=== PATIENT | male | born 1950 | race Caucasian/White ===

== ENCOUNTER 2022-04-22 09:16 | Emergency (ER) | payer OTHER ==
--- OUTSIDE RECORDS SUMMARY | 2022-04-22 09:24 | XMS REPORT | Continuity of Care Document ---
:1950 Author Organization [facility] t Address [address] [place] [address] Care Team Providers Name Role Phone Lauryn Arora Primary Care Physician Chelsie De Jesus Attending Clinician Unavailable BENNY DING Attending Clinician Unavailable BENNY DING Attending Clinician Unavailable Benny Ding DO Attending Clinician Jeaneth Hazel Attending Clinician Team, [facility] Attending Clinician UnavailMARSHA Miranda Attending Clinician Unavailable Doctor Unassigned, [place] Attending Clinician Unavailable Jeannie Wood Attending Clinician [phone] Rehab, [facility] Cardiac Attending Clinician Unavailable Marsha Reis MD Attending Clinician Lauryn Arora Attending Clinician Jaja Harman Attending Clinician Pob, [facility] Lab Main Attending Clinician Unavailable Ozzie Munoz MD Attending Clinician OZZIE MUNOZ Attending Clinician Unavailable 2, [facility] Attending Clinician Unavailable Jessika ROBLES, Mac Marie Attending Clinician MAC ELDRIDGE Attending Clinician Unavailable LINO ARAUJO Attending Clinician Unavailable Van ROBLES, Lino Attending Clinician Fabio KIRK, Greg Bernabe Attending Clinician Unavailable NOVA LUCERO Attending Clinician Unavailable Tomas ROBLES, Juan Antonio Attending Clinician Price ROBLES, Nova Attending Clinician Natalio KIRK, Daniela Currie Attending Clinician Unavailable Virginia ROBLES, Roverto Castellano Attending Clinician Beltran ROBLES, Blane Attending Clinician LEEROY, SENDIL K.H. Attending Clinician Unavailable JAJA REAL Attending Clinician Unavailable Ruddy KIRK, Natasha Fields Attending Clinician Unavailable Chinyere ROBLES, Essence Delgado Attending Clinician Dunia White MD Attending Clinician Cindi ROBLES, [place] Attending Clinician Chalo Abdalla MD Attending Clinician Mik Mcnulty Attending Clinician Therapist, [facility] Respiratory Attending Clinician Unavailable Freddie Hargrove MD Attending Clinician FREDDIE HARGROVE Attending Clinician Unavailable LAURYN GOLDSMITH Attending Clinician Unavailable Leeroy ROBLES, Sendil K.H. Attending Clinician ESSENCE WHITLOCK Attending Clinician Unavailable Malvin Borrego MD Attending Clinician CODEY ALVAREZ Attending Clinician Unavailable CODEY ALVAREZ Attending Clinician Unavailable Radha Lacey Attending Clinician Lab, Ang - Db Attending Clinician Unavailable RADHA GRAHAM Attending Clinician Unavailable LORAINE WATTERS Attending Clinician Unavailable EbLoraine Velazquez Attending Clinician Gwendolyn Nunez MD Attending Clinician ARIELLA ROME Attending Clinician Unavailable SHAZIA YAÑEZ Attending Clinician Unavailable Shazia Yañez MD Attending Clinician ASHWIN WHATLEY Attending Clinician Unavailable Ashwin Whatley MD Attending Clinician MIK HERRERA Attending Clinician Unavailable KEVIN RENNER Attending Clinician Unavailable JUAN ALBERTO DEMPSEY Attending Clinician Unavailable OZZIE MUNOZ Admitting Clinician Unavailable NOVA LUCERO Admitting Clinician Unavailable Nova Lucero MD Admitting Clinician LINO ARAUJO Admitting Clinician Unavailable Lino Araujo MD Admitting Clinician MALVIN BORREGO Admitting Clinician Unavailable Malvin Borrego MD Admitting Clinician SHAZIA YAÑEZ Admitting Clinician Unavailable Payers Payer Name Policy Type Policy Number Effective Date Expiration Date S adrian MEDICARE PART A [id number] 2015 \T\ B 00:00:00 FOR LIFE [id number] 2020 00:00:00 FOR LIFE [id number] 2019 00:00:00 Problems Condition Condition Condition Status Onset Resolution Last Treating Co mments Source Name Details Category Date Date Treatment Clinician Date Bronchospa Bronchospa Disease Active U nivers sm sm 3-12 ity of 00:00: 00 Medical Branch Coronary Coronary Disease Active Unive rs artery artery 3 ity of disease disease 00:00: [place] involving involving 00 Medi aashish coronary coronary Branch bypass bypass graft of graft of stebbins stebbins heart heart COPD COPD Disease Active Univers (chronic (chronic 309 [place] of obstructiv [place] Medical pulmonary pulmonary Bran ch disease) disease) Pneumonia Pneumonia Disease Active Uni vers 3- ity of 00:00: 00 Medical Branch Shortness Shortness Disease Active Overview: Univers of breath of breath 05-15 Formattin i ty of 00:00: g of this 00 note Medical might be Branch different from the original. 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 ([place] Medical infarction infarction Br anch ) ) History of History of Disease Active U nivers PTCA PTCA 2-07 ity of 00:00: [place] 00 Medical Branch Acute on Acute on Disease Active Unive rs chronic chronic 2-07 ity of heart heart 00:00: [place] failure failure 00 Medical with with Branch preserved preserved ejection ejection fraction fraction COPD with COPD with Disease Active 2020-03 Uni vers acute acute 2-11 ity of exacerbati exacerbati [place] Dyslipidem Dyslipidem Disease Active U nivers ia ia 3-10 ity of 00:00: [place] [facility] Essential Essential Disease Active Uni vers hypertensi hypertensi 3-09 it y of on on 00:00: Medical Branch Skin Skin Disease Active Univers cancer cancer 3- ity of 00:00: [place] [facility] Class 1 Class 1 Disease Active Univers obesity obesity 309 ity of due to due to 00:00: [place] excess excess 00 Medical calories calories Branch with with serious serious comorbidit comorbidit y and body y and body mass index mass index (BMI) of (BMI) of 32.0 to 32.0 to 32.9 in 32.9 in adult adult [id number] Coronary Problem Comm on artery Spirit disease - [facility] involving [facility] coronary Medical artery of Center stebbins heart without angina pectoris [id number] Neuropathy Problem Co mmon [facility] - [facility] [id number] Severe Problem Common persistent [id number] 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 [id number] Gastroesop Problem Co mmon hageal Spirit reflux - [facility] disease [facility] esophagiti Medica [facility] [id number] Pure Problem Common hyperchole Spirit sterolemia - [facility] [id number] Mixed Problem Common hyperlipid Spirit emia - [facility] Allergies, Adverse Reactions, Alerts Allergy Allergy Status Severity Reaction(s) Onset Inactive Treating Comm ents Source Name Type Date Date Clinician Diclofen Propensi Active Unknown - Uni vers ac ty to See comments 4-22 ity of adverse 00:00: [place] reaction 00 Medical s Branch Levoflox Propensi Active Unknown - Uni vers acin ty to See comments 4-22 ity of adverse 00:00: [place] reaction 00 Medical s Branch Moxiflox Propensi Active Unknown - Uni vers acin Hcl ty to See comments 4-22 it y of adverse 00:00: [place] reaction 00 Medical s Branch Sulfamet Propensi Active Unknown - Uni vers hoxazole ty to See comments 4-22 it y of adverse 00:00: [place] reaction 00 Medical s Branch Trimetho Propensi Active Unknown - Uni vers prim ty to See comments 4-22 ity of adverse 00:00: [place] reaction 00 Medical s Branch DICLOFEN DRUG Active Unknown-Cmnt Un nancy AC INGREDI 4-22 ity of 00:00: [place] 00 Medical Branch LEVOFLOX DRUG Active Unknown-Cmnt Un nancy ACIN INGREDI 4-22 ity of 00:00: [place] 00 Medical Branch MOXIFLOX DRUG Active Unknown-Cmnt Un nancy ACIN HCL INGREDI 4-22 ity of 00:00: [place] 00 Medical Branch SULFAMET DRUG Active Unknown-Cmnt Un nancy HOXAZOLE INGREDI 4-22 ity of 00:00: [place] 00 Medical Branch TRIMETHO DRUG Active Unknown-Cmnt Un nancy PRIM INGREDI 4-22 ity of 00:00: [place] 00 Medical Branch Social History Social Habit Start Date Stop Date Quantity Comments Source History of tobacco Cigarette Smoker [facility] of use [place] [facility] [place] History [facility] University o f Alcohol Frequency [place] [facility] History [facility] University o f Alcohol Binge [place] [facility] History [facility] o f Alcohol Comment [place] [facility] ical [facility] Exposure to 2022-02-07 2022-02-17 Not sure University SARS-CoV-2 (event) 00:00:00 10:10:00 [facility] Cigarettes smoked 2022-02-17 2022-02-17 Univers ity of current (pack per 00:00:00 00:00:00 [facility] ed) - Reported Branch Cigarette 2022-02-17 2022-02-17 University of pack-years 00:00:00 00:00:00 [facility] Tobacco use and 2021-06-13 2021-06-13 Never used CHRISTINA Kate exposure 00:00:00 00:00:00 [facility] [place] Alcohol intake 2021-06-13 2021-06-13 Current drinker [facility] 00:[facility]:00:00 of alcohol [facility] (finding) History SDOH 2019-02-02 2019-02-02 2 University o f Alcohol Std Drinks 00:00:00 00:00:00 [facility] Sex [birth year] At [birth year] CHRISTINA Kate 00:00:00 [facility]:00 [facility] Smoking Status Start Date Stop Date Source Former smoker 2021-06-13 00:00:00 2021-06-13 00:00:00 [facility] Medications Ordered Filled Start Stop Current Ordering Indication Dosage Frequency Signature Comments Components Source Medication Medication Date Date Medication? Clinician (SIG) Name Name Bupivicaine Bupivicaine 2021-03 No 2.5mg Common Senath Senath 1-10 Spirit 00:00: - [facility] Bupivicaine Bupivicaine 2021-03 No 2.5mg Common Senath Senath 1-10 Spirit 00:00: - [facility] Kenalog Kenalog 2021-03 No 40mg Common (Triamcinol (Triamcinol 1-10 S pirit one) one) 00:00: - [facility] Kenalog Kenalog 2021-03 No 40mg Common (Triamcinol (Triamcinol 1-10 S pirit one) one) 00:00: - [facility] Bupivicaine Bupivicaine 2021-03 No 2.5mg Common Senath Senath 1-10 Spirit 00:00: - [facility] Bupivicaine Bupivicaine 2021-03 No 2.5mg Common Senath Senath 1-10 Spirit 00:00: - [facility] Kenalog Kenalog 2021-03 No 40mg Common (Triamcinol (Triamcinol 1-10 S pirit one) one) 00:00: - [facility] Leslie Richardsalog 2021-03 No 40mg Common (Triamcinol (Triamcinol 1-10 S pirit one) one) 00:00: - [facility] Bupivicaine Bupivicaine 2021-03 No 2.5mg Common Senath Senath 1-10 Spirit 00:00: - [facility] Bupivicaine Bupivicaine 2021- No 2.5mg Common Senath Senath 1-10 Spirit 00:00: - [facility] 00 [facility] Leslie Nelson 2021-03 No 40mg Common (Triamcinol (Triamcinol 1-10 S pirit one) one) 00:00: - [facility] 00 [facility] Leslie Nelson 2021-03 No 40mg Common (Triamcinol (Triamcinol 1-10 S pirit one) one) 00:00: - [facility] Bupivicaine Bupivicaine 2021- No 2.5mg Common Senath Senath 1-10 Spirit 00:00: - [facility] 00 [facility] Bupivicaine Bupivicaine 2021- No 2.5mg Common Senath Senath 1-10 Spirit 00:00: - [facility] 00 [facility] Leslie Nelson 2021-03 No 40mg Common (Triamcinol (Triamcinol 1-10 S pirit one) one) 00:00: - [facility] 00 [facility] Leslie Nelson 2021-03 No 40mg Common (Triamcinol (Triamcinol 1-10 S pirit one) one) 00:00: - [facility] Pregabalin Pregabalin 2021-0 No 1{capsu BID Pregabalin 50 MG 50 MG 8-17 le} 50 MG 00:00: 00 Pregabalin Pregabalin 2-0 No 1{capsu BID Pregabalin 50 MG 50 MG 8-17 le} 50 MG 00:00: 00 Pregabalin Pregabalin 2-0 No 1{capsu BID Pregabalin 50 MG 50 MG 8-17 le} 50 MG 00:00: 00 Pregabalin Pregabalin 2021-0 No 1{capsu BID Pregabalin 50 MG 50 MG 8-17 le} 50 MG 00:00: 00 Pregabalin Pregabalin 2-0 No 1{capsu BID Pregabalin 50 MG 50 MG 8-17 le} 50 MG 00:00: 00 budesonide 2021-0 Yes [id number] Inhale 2 Univers 0.5 mg/2 mL 7-06 mL 2 (two) it y of nebulizer 00:00: times [place] solution daily Medical Branch budesonide 2021-0 Yes [id number] Inhale 2 Univers 0.5 mg/2 mL 7-06 mL 2 (two) it y of nebulizer 00:00: times [place] solution daily Medical Branch budesonide 2021-0 Yes [id number] Inhale 2 Univers 0.5 mg/2 mL 7-06 mL 2 (two) it y of nebulizer 00:00: times [place] solution 00 daily Medical Branch budesonide 2021-0 Yes [id number] Inhale 2 Univers 0.5 mg/2 mL 7-06 mL 2 (two) it y of nebulizer 00:00: times [place] solution daily Medical Branch budesonide 2021-0 Yes [id number] Inhale 2 Univers 0.5 mg/2 mL 7-06 mL 2 (two) it y of nebulizer 00:00: times [place] solution 00 daily Medical Branch budesonide 2021-0 Yes [id number] Inhale 2 Univers 0.5 mg/2 mL 7-06 mL 2 (two) it y of nebulizer 00:00: times [place] solution daily Medical Branch METOPROLOL 2021-0 Yes [id number] TAKE Un nancy TARTRATE 25 7-05 ONE-HALF ity of mg tablet 00:00: (03/17) TABLET Medical EVERY 12 Branch HOURS METOPROLOL 2-0 Yes [id number] TAKE Un nancy TARTRATE 25 7-05 ONE-HALF ity of mg tablet 00:00: (03/17) TABLET Medical EVERY 12 Branch HOURS METOPROLOL 2-0 Yes [id number] TAKE Un nancy TARTRATE 25 7-05 ONE-HALF ity of mg tablet 00:00: (03/17) TABLET Medical EVERY 12 Branch HOURS METOPROLOL 2021-0 Yes [id number] TAKE Un nancy TARTRATE 25 7-05 ONE-HALF ity of mg tablet 00:00: (03/17) TABLET Medical EVERY 12 Branch HOURS METOPROLOL 2022-0 Yes [id number] TAKE Un nancy TARTRATE 25 7-05 ONE-HALF ity of mg tablet 00:00: (03/17) TABLET Medical EVERY 12 Branch HOURS METOPROLOL 2022-0 Yes [id number] TAKE Un nancy TARTRATE 25 7-05 ONE-HALF ity of mg tablet 00:00: (03/17) TABLET Medical EVERY 12 Branch HOURS METOPROLOL 2022-0 Yes [id number] TAKE Un nancy TARTRATE 25 7-05 ONE-HALF ity of mg tablet 00:00: (03/17) [place] TABLET Medical EVERY 12 Branch HOURS ASPIRIN LOW 2021-0 Yes Take by Uni vers DOSE ORAL 6-03 mouth. ity of 13:46: [address] ASPIRIN LOW 2022-0 Yes Take by Uni vers DOSE ORAL 6-03 mouth. ity of 13:46: [address] ASPIRIN LOW 2022-0 Yes Take by Uni vers DOSE ORAL 6-03 mouth. ity of 13:46: [address] ASPIRIN LOW 2022-0 Yes Take by Uni vers DOSE ORAL 6-03 mouth. ity of 13:46: [address] ASPIRIN LOW 2022-0 Yes Take by Uni vers DOSE ORAL 6-03 mouth. ity of 13:46: [address] ASPIRIN LOW 2022-0 Yes Take by Uni vers DOSE ORAL 6-03 mouth. ity of 13:46: [address] ASPIRIN LOW 2022-0 Yes Take by Uni vers DOSE ORAL 6-03 mouth. ity of 13:46: [address] ASPIRIN LOW 2022-0 Yes Take by Uni vers DOSE ORAL 6-03 mouth. ity of 13:46: [address] mepolizumab 2022-0 Yes [id number] 100mg inject 1 Univers (NUCALA) 6-03 Pen under ity of 100 mg/mL 00:[place]: [place] every 4 Medical (four) Branch weeks. mepolizumab 2022-0 Yes [id number] 100mg inject 1 Univers (NUCALA) 6-03 Pen under ity of 100 mg/mL 00:00: [place] At[place] 00 every 4 Medical (four) Branch weeks. mepolizumab 2022-0 Yes [id number] 100mg inject 1 Univers (NUCALA) 6-03 Pen under ity of 100 mg/mL 00:00: [place] At[place] 00 every 4 Medical (four) Branch weeks. mepolizumab 2022-0 Yes [id number] 100mg inject 1 Univers (NUCALA) 6-03 Pen under ity of 100 mg/mL 00:00: [place] At[place] 00 every 4 Medical (four) Branch weeks. mepolizumab 2022-0 Yes [id number] 100mg inject 1 Univers (NUCALA) 6-03 Pen under ity of 100 mg/mL 00:00: [place] At[place] 00 every 4 Medical (four) Branch weeks. mepolizumab 2022-0 Yes [id number] 100mg inject 1 Univers (NUCALA) 6-03 Pen under ity of 100 mg/mL 00:00: [place] At[place] 00 every 4 Medical (four) Branch weeks. mepolizumab 2022-0 Yes [id number] 100mg inject 1 Univers (NUCALA) 6-03 Pen under ity of 100 mg/mL 00:00: [place] At[place] 00 every 4 Medical (four) Branch weeks. mepolizumab 2022-0 Yes [id number] 100mg inject 1 Univers (NUCALA) 6-03 Pen under ity of 100 mg/mL 00:00: [place] At[place] 00 every 4 Medical (four) Branch weeks. tiotropium 2021-0 Yes [id number] 18ug Inhale 1 Univers 18 mcg 4-29 capsule ity of inhalation 00:00: daily. [address] tiotropium 2-0 Yes [id number] 18ug Inhale 1 Univers 18 mcg 4-29 capsule ity of inhalation 00:00: daily. [address] tiotropium 2-0 Yes [id number] 18ug Inhale 1 Univers 18 mcg 4-29 capsule ity of inhalation 00:00: daily. [address] tiotropium 2-0 Yes [id number] 18ug Inhale 1 Univers 18 mcg 4-29 capsule ity of inhalation 00:00: daily. [place] 00 Medical Branch tiotropium 0 Yes [id number] 18ug Inhale 1 Univers 18 mcg 4-29 capsule ity of inhalation 00:00: daily. [place] [facility] tiotropium 2021-0 Yes [id number] 18ug Inhale 1 Univers 18 mcg 4-29 capsule ity of inhalation 00:00: daily. [place] [facility] tiotropium 2021-0 Yes [id number] 18ug Inhale 1 Univers 18 mcg 4-29 capsule ity of inhalation 00:00: daily. [place] [facility] tiotropium 2021-0 Yes [id number] 18ug Inhale 1 Univers 18 mcg 4-29 capsule ity of inhalation 00:00: daily. [place] [facility] Branch metoprolol 2021-0 Yes [id number] 12.5mg Take 0.5 Univers tartrate 25 4-21 tablets by it y of mg tablet 00:00: mouth [place] every 12 Medical (twelve) Branch hours. metoprolol 2021-0 2021- No [id number] 12.5mg Take 0.5 Univers tartrate 25 4-21 07-05 tablets by i ty of mg tablet 00:00: 00:00 mouth [place] 00 :00 every 12 Medical (twelve) Branch hours. Pregabalin Pregabalin 2021-0 No 1{capsu BID Pregabalin 50 MG 50 MG 4-19 le} 50 MG 00:00: 00 Pregabalin Pregabalin 2021-0 No 1{capsu BID Pregabalin 50 MG 50 MG 4-19 le} 50 MG 00:00: 00 Pregabalin Pregabalin 2-0 No 1{capsu BID Pregabalin 50 MG 50 MG 4-19 le} 50 MG 00:00: 00 Pregabalin Pregabalin 2-0 No 1{capsu BID Pregabalin 50 MG 50 MG 4-19 le} 50 MG 00:00: 00 Pregabalin Pregabalin 2021-0 No 1{capsu BID Pregabalin 50 MG 50 MG 4-19 le} 50 MG 00:00: 00 Pregabalin Pregabalin 2-0 No 1{capsu BID Pregabalin 50 MG 50 MG 4-19 le} 50 MG 00:00: 00 predniSONE 2-0 Yes [id number] 15mg Take 3 Univers 5 mg tablet 4-01 tablets by it y of 00:00: mouth [place] daily. Medical Branch budesonide 2021-0 Yes [id number] .5mg Inhale 2 Univers (PULMICORT) 4-01 mL 2 (two) it y of 0.5 mg/2 mL 00:00: times [place] nebulizer 00 daily. Medical solution Branch arformotero 2021-0 Yes [id number] 15ug Use 2 mL Univers L (BROVANA) 4-01 as ity of 15 mcg/2 mL 00:00: directed 2 [place] nebulizer 00 (two) Medical solution times Branch daily. predniSONE 2021-0 Yes [id number] 15mg Take 3 Univers 5 mg tablet 4-01 tablets by it y of 00:00: mouth [place] 00 daily. Medical Branch budesonide 2021-0 Yes [id number] .5mg Inhale 2 Univers (PULMICORT) 4-01 mL 2 (two) it y of 0.5 mg/2 mL 00:00: times [place] nebulizer 00 daily. Medical solution Branch arformotero 0 Yes [id number] 15ug Use 2 mL Univers L (BROVANA) 4-01 as ity of 15 mcg/2 mL 00:00: directed 2 [place] nebulizer 00 (two) Medical solution times Branch daily. predniSONE 2021-0 Yes [id number] 15mg Take 3 Univers 5 mg tablet 4-01 tablets by it y of 00:00: mouth [place] 00 daily. Medical Branch arformotero 0 Yes [id number] 15ug Use 2 mL Univers L (BROVANA) 4-01 as ity of 15 mcg/2 mL 00:00: directed 2 [place] nebulizer 00 (two) Medical solution times Branch daily. predniSONE 2021-0 Yes [id number] 15mg Take 3 Univers 5 mg tablet 4-01 tablets by it y of 00:00: mouth [place] 00 daily. Medical Branch arformotero 0 Yes [id number] 15ug Use 2 mL Univers L (BROVANA) 4-01 as ity of 15 mcg/2 mL 00:00: directed 2 [place] nebulizer 00 (two) Medical solution times Branch daily. predniSONE 2021-0 Yes [id number] 15mg Take 3 Univers 5 mg tablet 4-01 tablets by it y of 00:00: mouth [place] 00 daily. Medical Branch arformotero 2022-0 Yes [id number] 15ug Use 2 mL Univers L (BROVANA) 4-01 as ity of 15 mcg/2 mL 00:00: directed 2 [place] nebulizer 00 (two) Medical solution times Branch daily. predniSONE 2021-0 Yes [id number] 15mg Take 3 Univers 5 mg tablet 4-01 tablets by it y of 00:00: mouth [place] 00 daily. Medical Branch arformotero Yes [id number] 15ug Use 2 mL Univers L (BROVANA) 4-01 as ity of 15 mcg/2 mL 00:00: directed 2 [place] nebulizer 00 (two) Medical solution times Branch daily. predniSONE Yes [id number] 15mg Take 3 Univers 5 mg tablet 4-01 tablets by it y of 00:00: mouth [place] 00 daily. Medical Branch arformotero Yes [id number] 15ug Use 2 mL Univers L (BROVANA) 4-01 as ity of 15 mcg/2 mL 00:00: directed 2 [place] nebulizer 00 (two) Medical solution times Branch daily. predniSONE Yes [id number] 15mg Take 3 Univers 5 mg tablet 4-01 tablets by it y of 00:00: mouth [place] 00 daily. Medical Branch arformotero Yes [id number] 15ug Use 2 mL Univers L (BROVANA) 4-01 as ity of 15 mcg/2 mL 00:00: directed 2 [place] nebulizer 00 (two) Medical solution times Branch daily. budesonide 2021- No [id number] .5mg Inhale 2 Univers (PULMICORT) 4-01 07-06 mL 2 (two) i ty of 0.5 mg/2 mL 00:00: 00:00 [place] nebul[place] 00 :00 daily. Medical solution Branch furosemide 0 Yes 20mg QD Take [address] (LASIX) 20 3-31 by mouth [facility] MG tablet 13:34: daily. Medica l 38 Center metoprolol 2021-0 Yes 12.5mg Q.5D Take 12.[address] tartrate 3-31 mg by [facility] (LOPRESSOR) 13:34: mouth 2 Med ical 25 MG 38 (two) Center tablet times daily. atorvastati 2022-0 Yes 40mg QD Take [address] [facility] (LIPITOR) 3-31 by mouth [facility] 40 MG 13:34: daily. Medical tablet 38 Center pantoprazol Yes 40mg QD Take [address] [facility] 3-31 by mouth [facility] (PROTONIX) 13:34: daily. Medic al 40 MG 38 Center tablet tiotropium Yes 18ug QD Inhale [address] (SPIRIVA) 3-31 mcg by [facility] 18 mcg 13:34: mouth via Medica l inhalation 38 inhaler Center capsule daily. spironolact Yes 50mg QD Take [address] one 3-31 by mouth [facility] (ALDACTONE) 13:34: daily. Medi aashish 50 MG 38 Center tablet predniSONE Yes 20mg QD Take [address] (DELTASONE) 3-31 by mouth [facility] 20 MG 13:34: daily Medical tablet 38 Patient Center has been on brief course and last dose today . pregabalin Yes 50mg Q.5D Take [address] (LYRICA) 50 3-31 by mouth 2 Rosemarie kes MG capsule 13:34: (two) Medica l 37 times Center daily. clopidogreL Yes 75mg QD Take [address] (PLAVIX) 75 3-31 by mouth [facility] mg tablet 13:34: daily. Medica l 37 Center aspirin 81 Yes 81mg QD Take [address] MG chewable 3-31 by mouth [facility] tablet 13:34: daily. [address] SPIRONOLACT Yes [id number] TAKE 1 Univers ONE 25 mg 3-24 TABLET BY ity o f tablet 00:00: MOUTH [place] 00 EVERY DAY Medical Branch SPIRONOLACT 2021-0 Yes [id number] TAKE 1 Univers ONE 25 mg 3-24 TABLET BY ity o f tablet 00:00: MOUTH [place] 00 EVERY DAY Medical Branch SPIRONOLACT 0 Yes [id number] TAKE 1 Univers ONE 25 mg 3-24 TABLET BY ity o f tablet 00:00: MOUTH [place] 00 EVERY DAY Medical Branch SPIRONOLACT 0 Yes [id number] TAKE 1 Univers ONE 25 mg 3-24 TABLET BY ity o f tablet 00:00: MOUTH [place] 00 EVERY DAY Medical Branch SPIRONOLACT 2021-0 Yes [id number] TAKE 1 Univers ONE 25 mg 3-24 TABLET BY ity o f tablet 00:00: MOUTH [place] 00 EVERY DAY Medical Branch SPIRONOLACT 2021-0 Yes [id number] TAKE 1 Univers ONE 25 mg 3-24 TABLET BY ity o f tablet 00:00: MOUTH 00 EVERY DAY Medical Branch SPIRONOLACT 2-0 Yes [id number] TAKE 1 Univers ONE 25 mg 3-24 TABLET BY ity o f tablet 00:00: MOUTH [place] 00 EVERY DAY Medical Branch SPIRONOLACT 2-0 Yes [id number] TAKE 1 Univers ONE 25 mg 3-24 TABLET BY ity o f tablet 00:00: MOUTH 00 EVERY DAY Medical Branch furosemide 2021-0 Yes [id number] 40mg Take 1 Univers 40 mg 3-10 tablet by ity of tablet 00:00: mouth 00 daily. Medical Branch furosemide 2021-0 Yes [id number] 40mg Take 1 Univers 40 mg 3-10 tablet by ity of tablet 00:00: mouth 00 daily. Medical Branch furosemide 2021-0 Yes [id number] 40mg Take 1 Univers 40 mg 3-10 tablet by ity of tablet 00:00: mouth 00 daily. Medical Branch furosemide 2021-0 Yes [id number] 40mg Take 1 Univers 40 mg 3-10 tablet by ity of tablet 00:00: mouth 00 daily. Medical Branch furosemide 2021-0 Yes [id number] 40mg Take 1 Univers 40 mg 3-10 tablet by ity of tablet 00:00: mouth 00 daily. Medical Branch furosemide 2021-0 Yes [id number] 40mg Take 1 Univers 40 mg 3-10 tablet by ity of tablet 00:00: mouth 00 daily. Medical Branch furosemide 2021-0 Yes [id number] 40mg Take 1 Univers 40 mg 3-10 tablet by ity of tablet 00:00: mouth 00 daily. Medical Branch furosemide 2021-0 Yes [id number] 40mg Take 1 Univers 40 mg 3-10 tablet by ity of tablet 00:00: mouth 00 daily. Medical Branch urea 20 % 2021-0 Yes [id number] Apply to Univers cream 05-22 area(s) as ity of 00:00: needed for Itching. Medical Branch pantoprazol 2021-0 Yes [id number] 40mg Take 1 [facility] 40 mg EC 3-09 tablet by ity of tablet 00:00: mouth [place] 00 daily. [facility] clopidogreL 2021-0 Yes [id number] 75mg Take 1 [facility] 75 mg 3-09 tablet by ity of tablet 00:00: mouth [place] 00 daily. [facility] urea 20 % 0 Yes [id number] Apply to [facility] cream 3-09 area(s) as ity of 00:00: needed for [place] 00 Itching. [facility] pantoprazol 0 Yes [id number] 40mg Take 1 [facility] e 40 mg EC 3-09 tablet by ity of tablet 00:00: mouth [place] 00 daily. [facility] clopidogreL 2021-0 Yes [id number] 75mg Take 1 [facility] 75 mg 3-09 tablet by ity of tablet 00:00: mouth [place] 00 daily. [facility] urea 20 % 0 Yes [id number] Apply to [facility] cream 3-09 area(s) as ity of 00:00: needed for [place] 00 Itching. [facility] pantoprazol 0 Yes [id number] 40mg Take 1 [facility] e 40 mg EC 3-09 tablet by ity of tablet 00:00: mouth [place] 00 daily. [facility] clopidogreL 0 Yes [id number] 75mg Take 1 [facility] 75 mg 3-09 tablet by ity of tablet 00:00: mouth [place] 00 daily. [facility] urea 20 % 0 Yes [id number] Apply to [facility] cream 3-09 area(s) as ity of 00:00: needed for [place] 00 Itching. [facility] pantoprazol 2021-0 Yes [id number] 40mg Take 1 [facility] e 40 mg EC 3-09 tablet by ity of tablet 00:00: mouth [place] 00 daily. [facility] clopidogreL 2021-0 Yes [id number] 75mg Take 1 [facility] 75 mg 3-09 tablet by ity of tablet 00:00: mouth [place] 00 daily. [facility] urea 20 % 0 Yes [id number] Apply to [facility] cream 3-09 area(s) as ity of 00:00: needed for [place] 00 Itching. [facility] pantoprazol 2021-0 Yes [id number] 40mg Take 1 [facility] e 40 mg EC 3-09 tablet by ity of tablet 00:00: mouth [place] 00 daily. [facility] clopidogreL 2021-0 Yes [id number] 75mg Take 1 [facility] 75 mg 3-09 tablet by ity of tablet 00:00: mouth [place] 00 daily. [facility] urea 20 % 2021-0 Yes [id number] Apply to [facility] cream 3-09 area(s) as ity of 00:00: needed for [place] 00 Itching. [facility] pantoprazol 2021-0 Yes [id number] 40mg Take 1 [facility] e 40 mg EC 3-09 tablet by ity of tablet 00:00: mouth [place] 00 daily. [facility] clopidogreL 2021-0 Yes [id number] 75mg Take 1 [facility] 75 mg 3-09 tablet by ity of tablet 00:00: mouth [place] 00 daily. [facility] urea 20 % 0 Yes [id number] Apply to [facility] cream 3-09 area(s) as ity of 00:00: needed for [place] 00 Itching. [facility] pantoprazol 0 Yes [id number] 40mg Take 1 [facility] e 40 mg EC 3-09 tablet by ity of tablet 00:00: mouth [place] 00 daily. [facility] clopidogreL 2021-0 Yes [id number] 75mg Take 1 [facility] 75 mg 3-09 tablet by ity of tablet 00:00: mouth [place] 00 daily. [facility] urea 20 % 0 Yes [id number] Apply to [facility] cream 3-09 area(s) as ity of 00:00: needed for [place] 00 Itching. [facility] pantoprazol 0 Yes [id number] 40mg Take 1 [facility] e 40 mg EC 3-09 tablet by ity of tablet 00:00: mouth [place] 00 daily. [facility] clopidogreL 2021-0 Yes [id number] 75mg Take 1 [facility] 75 mg 3-09 tablet by ity of tablet 00:00: mouth [place] 00 daily. [facility] simethicone 2021-0 Yes [id number] 125mg Take 1 [facility] 125 mg 2-14 tablet by ity of chewable 00:00: mouth 3 [place] tablet 00 (three) Medical times Branch daily with meals as needed for Gas. polyethylen 2021-0 Yes [id number] 17g Take 1 [facility] e glycol 2-14 Packet by ity of 3350 17 00:00: mouth 2 [place] gram powder 00 (two) Medical times Branch daily as needed for Constipati on. simethicone 2021-0 Yes [id number] 125mg Take 1 [facility] 125 mg 2-14 tablet by ity of chewable 00:00: mouth 3 [place] tablet 00 (three) Medical times Branch daily with meals as needed for Gas. polyethylen 2022-0 Yes [id number] 17g Take 1 [facility] e glycol 2-14 Packet by ity of 3350 17 00:00: mouth 2 [place] gram powder 00 (two) Medical times Branch daily as needed for Constipati on. simethicone 2022-0 Yes [id number] 125mg Take 1 [facility] 125 mg 2-14 tablet by ity of chewable 00:00: mouth 3 [place] tablet 00 (three) Medical times Branch daily with meals as needed for Gas. polyethylen 2022-0 Yes [id number] 17g Take 1 [facility] e glycol 2-14 Packet by ity of 3350 17 00:00: mouth 2 [place] gram powder 00 (two) Medical times Branch daily as needed for Constipati on. simethicone 2022-0 Yes [id number] 125mg Take 1 [facility] 125 mg 2-14 tablet by ity of chewable 00:00: mouth 3 [place] tablet 00 (three) Medical times Branch daily with meals as needed for Gas. polyethylen 2022-0 Yes [id number] 17g Take 1 [facility] e glycol 2-14 Packet by ity of 3350 17 00:00: mouth 2 [place] gram powder 00 (two) Medical times Branch daily as needed for Constipati on. simethicone 2-0 Yes [id number] 125mg Take 1 [facility] 125 mg 2-14 tablet by ity of chewable 00:00: mouth 3 [place] tablet 00 (three) Medical times Branch daily with meals as needed for Gas. polyethylen 2-0 Yes [id number] 17g Take 1 [facility] e glycol 2-14 Packet by ity of 3350 17 00:00: mouth 2 [place] gram powder 00 (two) Medical times Branch daily as needed for Constipati on. simethicone 2022-0 Yes [id number] 125mg Take 1 [facility] 125 mg 2-14 tablet by ity of chewable 00:00: mouth 3 [place] tablet 00 (three) Medical times Branch daily with meals as needed for Gas. polyethylen 2022-0 Yes [id number] 17g Take 1 [facility] e glycol 2-14 Packet by ity of 3350 17 00:00: mouth 2 [place] gram powder 00 (two) Medical times Branch daily as needed for Constipati on. simethicone 2022-0 Yes [id number] 125mg Take 1 [facility] 125 mg 2-14 tablet by ity of chewable 00:00: mouth 3 [place] tablet 00 (three) Medical times Branch daily with meals as needed for Gas. polyethylen Yes [id number] 17g Take 1 [facility] e glycol 2-14 Packet by ity of 3350 17 00:00: mouth 2 [place] gram powder 00 (two) Medical times Branch daily as needed for Constipati on. simethicone Yes [id number] 125mg Take 1 [facility] 125 mg 2-14 tablet by ity of chewable 00:00: mouth 3 [place] tablet 00 (three) Medical times Branch daily with meals as needed for Gas. polyethylen Yes [id number] 17g Take 1 [facility] e glycol 2-14 Packet by ity of 3350 17 00:00: mouth 2 [place] gram powder 00 (two) Medical times Branch daily as needed for Constipati on. albuterol 2020-03 Yes [id number] 2{puff} Inhale 2 [facility] 90 2-17 Puffs ity of mcg/actuati 00:00: every 4 [place] as on inhaler 00 (four) Medical hours as Branch needed for Wheezing or Shortness of Breath. albuterol 2020-03 Yes [id number] 2{puff} Inhale 2 [facility] 90 2-17 Puffs ity of mcg/actuati 00:00: every 4 [place] as on inhaler 00 (four) Medical hours as Branch needed for Wheezing or Shortness of Breath. albuterol 2020-03 Yes [id number] 2{puff} Inhale 2 [facility] 90 2-17 Puffs ity of mcg/actuati 00:00: every 4 [place] as on inhaler 00 (four) Medical hours as Branch needed for Wheezing or Shortness of Breath. albuterol 2020-03 Yes [id number] 2{puff} Inhale 2 [facility] 90 2-17 Puffs ity of mcg/actuati 00:00: every 4 [place] as on inhaler 00 (four) Medical hours as Branch needed for Wheezing or Shortness of Breath. albuterol 2020-03 Yes [id number] 2{puff} Inhale 2 [facility] 90 2-17 Puffs ity of mcg/actuati 00:00: every 4 [place] as on inhaler 00 (four) Medical hours as Branch needed for Wheezing or Shortness of Breath. albuterol 2020-03 Yes [id number] 2{puff} Inhale 2 [facility] 90 2-17 Puffs ity of mcg/actuati 00:00: every 4 [place] as on inhaler 00 (four) Medical hours as Branch needed for Wheezing or Shortness of Breath. albuterol 2020-03 Yes [id number] 2{puff} Inhale 2 [facility] 90 2-17 Puffs ity of mcg/actuati 00:00: every 4 [place] as on inhaler 00 (four) Medical hours as Branch needed for Wheezing or Shortness of Breath. albuterol 2020-03 Yes [id number] 2{puff} Inhale 2 [facility] 90 2-17 Puffs ity of mcg/actuati 00:00: every 4 [place] as on inhaler 00 (four) Medical hours as Branch needed for Wheezing or Shortness of Breath. ipratropium 2020-03 Yes [id number] 3mL Inhale 3 [facility] -albuteroL 2-06 mL every 6 ity of 0.5 mg-3 00:00: (six) [place] mg(2.5 mg 00 hours as Medica l base)/3 mL needed for Bra nch nebulizer Wheezing. solution ipratropium 2020-03 Yes [id number] 3mL Inhale 3 [facility] -albuteroL 2-06 mL every 6 ity of 0.5 mg-3 00:00: (six) [place] mg(2.5 mg 00 hours as Medica l base)/3 mL needed for Bra nch nebulizer Wheezing. solution ipratropium 2020-03 Yes [id number] 3mL Inhale 3 [facility] -albuteroL 2-06 mL every 6 ity of 0.5 mg-3 00:00: (six) [place] mg(2.5 mg 00 hours as Medica l base)/3 mL needed for Bra nch nebulizer Wheezing. solution ipratropium 2020-03 Yes [id number] 3mL Inhale 3 [facility] -albuteroL 2-06 mL every 6 ity of 0.5 mg-3 00:00: (six) [place] mg(2.5 mg 00 hours as Medica l base)/3 mL needed for Bra nch nebulizer Wheezing. solution ipratropium 2020-03 Yes [id number] 3mL Inhale 3 [facility] -albuteroL 2-06 mL every 6 ity of 0.5 mg-3 00:00: (six) [place] mg(2.5 mg 00 hours as Medica l base)/3 mL needed for Bra nch nebulizer Wheezing. solution ipratropium 2020-03 Yes [id number] 3mL Inhale 3 [facility] -albuteroL 2-06 mL every 6 ity of 0.5 mg-3 00:00: (six) [place] mg(2.5 mg 00 hours as Medica l base)/3 mL needed for Bra nch nebulizer Wheezing. solution ipratropium 2020-03 Yes [id number] 3mL Inhale 3 [facility] -albuteroL 2-06 mL every 6 ity of 0.5 mg-3 00:00: (six) [place] mg(2.5 mg 00 hours as Medica l base)/3 mL needed for Bra nch nebulizer Wheezing. solution ipratropium 2020-03 Yes [id number] 3mL Inhale 3 [facility] -albuteroL 2-06 mL every 6 ity of 0.5 mg-3 00:00: (six) [place] mg(2.5 mg 00 hours as Medica l base)/3 mL needed for Bra nch nebulizer Wheezing. solution fluticasone Yes [id number] 2{spray Use 2 [facility] propionate 6-22 } Sprays in ity of 50 00:00: each [place] mcg/actuati 00 nostril Medic al on nasal daily. Branch spray fluticasone Yes [id number] 2{spray Use 2 [facility] propionate 6-22 } Sprays in ity of 50 00:00: each [place] mcg/actuati 00 nostril Medic al on nasal daily. Branch spray fluticasone Yes [id number] 2{spray Use 2 [facility] propionate 6-22 } Sprays in ity of 50 00:00: each [place] mcg/actuati 00 nostril Medic al on nasal daily. Branch spray fluticasone Yes [id number] 2{spray Use 2 [facility] propionate 6-22 } Sprays in ity of 50 00:00: each [place] mcg/actuati 00 nostril Medic al on nasal daily. Branch spray fluticasone Yes [id number] 2{spray Use 2 [facility] propionate 6-22 } Sprays in ity of 50 00:00: each [place] mcg/actuati 00 nostril Medic al on nasal daily. Branch spray fluticasone Yes [id number] 2{spray Use 2 [facility] propionate 6-22 } Sprays in ity of 50 00:00: each [place] mcg/actuati 00 nostril Medic al on nasal daily. Branch spray fluticasone Yes [id number] 2{spray Use 2 [facility] propionate 6-22 } Sprays in ity of 50 00:00: each [place] mcg/actuati 00 nostril Medic al on nasal daily. Branch spray fluticasone Yes [id number] 2{spray Use 2 [facility] propionate 6-22 } Sprays in ity of 50 00:00: each [place] mcg/actuati 00 nostril Medic al on nasal daily. Branch spray pregabalin 2020-1 Yes 50mg Take 50 mg [facility] 50 mg 2-02 by mouth 2 ity of capsule 00:00: (two) [place] 00 times Medical daily. Branch pregabalin 2020-1 Yes 50mg Take 50 mg U nivers 50 mg 2-02 by mouth 2 ity of capsule 00:00: (two) [place] 00 times Medical daily. Branch pregabalin 2020-1 Yes 50mg Take 50 mg U nivers 50 mg 2-02 by mouth 2 ity of capsule 00:00: (two) [place] 00 times Medical daily. Branch pregabalin 2020-1 Yes 50mg Take 50 mg U nivers 50 mg 2-02 by mouth 2 ity of capsule 00:00: (two) [place] 00 times Medical daily. Branch pregabalin 2020-1 Yes 50mg Take 50 mg U n[facility] 50 mg 2-02 by mouth 2 ity of capsule 00:00: (two) [place] 00 times Medical daily. Branch pregabalin 2020-1 Yes 50mg Take 50 mg U nivers 50 mg 2-02 by mouth 2 ity of capsule 00:00: (two) [place] 00 times Medical daily. Branch pregabalin 2020-1 Yes 50mg Take 50 mg U n[facility] 50 mg 2-02 by mouth 2 ity of capsule 00:00: (two) [place] 00 times Medical daily. Branch pregabalin 2020-1 Yes 50mg Take 50 mg U nivers 50 mg 2-02 by mouth 2 ity of capsule 00:00: (two) [place] [address] times Medical daily. Branch atorvastati 2018-03 Yes [facility] 40 mg 0-10 ity of tablet 00:00: [place] [address] Medical Branch atorvastati 2018-03 Yes [facility] 40 mg 0-10 ity of tablet 00:00: [address] Branch atorvastati 2018-03 Yes [facility] n 40 mg 0-10 ity of tablet 00:00: [address] Branch atorvastati 2018-03 Yes [facility] 40 mg 0-10 ity of tablet 00:00: [address] Branch atorvastati 2018-03 Yes [facility] n 40 mg 0-10 ity of tablet 00:00: [address] Branch atorvasta 2018-03 Yes [facility] n 40 mg 0-10 ity of tablet 00:00: [address] Branch atorvastati 2018-03 Yes [facility] s n 40 mg 0-10 ity of tablet 00:00: [address] Branch atorvasta 2018-03 Yes [facility] s n 40 mg 0-10 ity of tablet 00:00: [address] Branch Aspirin 81 Aspirin 81 No 1{table QD Aspirin 81 81 MG 81 MG t} 81 MG Tiotropium Tiotropium No QD Tiotropium [facility] Monohydrate Monohydrate Monohydrat 18 MCG 18 MCG e 18 MCG Arformotero Arformotero No Arformoter l Tartrate l Tartrate ol 15 MCG/2ML 15 MCG/2ML Tartrate 15 MCG/2ML Fluticasone Fluticasone No Fluticason Propionate Propionate e 50 MCG/ACT 50 MCG/ACT Propionate 50 MCG/ACT predniSONE predniSONE No predniSONE 5 MG 5 MG 5 MG Metoprolol Metoprolol No 1{table BID Metoprolol Tartrate 25 Tartrate 25 t_with_ Tartrate MG MG food} 25 MG Clopidogrel Clopidogrel No Clopidogre Bisulfate Bisulfate l 75 MG 75 MG Bisulfate 75 MG Atorvastati Atorvastati No 1{table Atorvastat n Calcium n Calcium t} in Calcium 40 MG 40 MG 40 MG Budesonide Budesonide No Budesonide 0.5 MG/2ML 0.5 MG/2ML 0.5 MG/2ML Omeprazole Omeprazole No BID Omeprazole 40 MG 40 MG 40 MG Omeprazole Omeprazole No Omeprazole 40 MG 40 MG 40 MG Furosemide Furosemide No Furosemide 40 MG 40 MG 40 MG ProAir HFA ProAir HFA No 1{puff_ 6xD ProAir HFA 108 (90 108 (90 as_need 108 (90 Base) Base) ed} Base) MCG/ACT MCG/ACT MCG/ACT Nucala 100 Nucala 100 No Nucala 100 MG/ML MG/ML MG/ML Aspirin 81 Aspirin 81 No 1{table QD Aspirin 81 81 MG 81 MG t} 81 MG Tiotropium Tiotropium No QD Tiotropium [facility] Monohydrate Monohydrate Monohydrat 18 MCG 18 MCG e 18 MCG Arformotero Arformotero No Arformoter l Tartrate l Tartrate ol 15 MCG/2ML 15 MCG/2ML Tartrate 15 MCG/2ML Fluticasone Fluticasone No Fluticason Propionate Propionate e 50 MCG/ACT 50 MCG/ACT Propionate 50 MCG/ACT predniSONE predniSONE No predniSONE 5 MG 5 MG 5 MG Metoprolol Metoprolol No 1{table BID Metoprolol Tartrate 25 Tartrate 25 t_with_ Tartrate MG MG food} 25 MG Clopidogrel Clopidogrel No Clopidogre Bisulfate Bisulfate l 75 MG 75 MG Bisulfate 75 MG Atorvastati Atorvastati No 1{table Atorvastat n Calcium n Calcium t} in Calcium 40 MG 40 MG 40 MG Budesonide Budesonide No Budesonide 0.5 MG/2ML 0.5 MG/2ML 0.5 MG/2ML Omeprazole Omeprazole No BID Omeprazole 40 MG 40 MG 40 MG Omeprazole Omeprazole No Omeprazole 40 MG 40 MG 40 MG Furosemide Furosemide No Furosemide 40 MG 40 MG 40 MG Fluticasone Fluticasone No Fluticason Propionate Propionate e 50 MCG/ACT 50 MCG/ACT Propionate 50 MCG/ACT Nucala 100 Nucala 100 No Nucala 100 MG/ML MG/ML MG/ML Aspirin 81 Aspirin 81 No 1{table QD Aspirin 81 81 MG 81 MG t} 81 MG Tiotropium Tiotropium No QD Tiotropium [facility] Monohydrate Monohydrate Monohydrat 18 MCG 18 MCG e 18 MCG Arformotero Arformotero No Arformoter l Tartrate l Tartrate ol 15 MCG/2ML 15 MCG/2ML Tartrate 15 MCG/2ML Atorvastati Atorvastati No 1{table Atorvastat n Calcium n Calcium t} in Calcium 40 MG 40 MG 40 MG predniSONE predniSONE No predniSONE 5 MG 5 MG 5 MG Omeprazole Omeprazole No Omeprazole 40 MG 40 MG 40 MG ProAir HFA ProAir HFA No 1{puff_ 6xD ProAir HFA 108 (90 108 (90 as_need 108 (90 Base) Base) ed} Base) MCG/ACT MCG/ACT MCG/ACT Metoprolol Metoprolol No 1{table BID Metoprolol Tartrate 25 Tartrate 25 t_with_ Tartrate MG MG food} 25 MG Budesonide Budesonide No Budesonide 0.5 MG/2ML 0.5 MG/2ML 0.5 MG/2ML Clopidogrel Clopidogrel No 1{table QD Clopidogre Bisulfate Bisulfate t} l 75 MG 75 MG Bisulfate 75 MG Omeprazole Omeprazole No BID Omeprazole 40 MG 40 MG 40 MG predniSONE predniSONE No predniSONE 5 MG 5 MG 5 MG Atorvastati Atorvastati No 1{table Atorvastat n Calcium n Calcium t} in Calcium 40 MG 40 MG 40 MG Metoprolol Metoprolol No 1{table BID Metoprolol Tartrate 25 Tartrate 25 t_with_ Tartrate MG MG food} 25 MG Fluticasone Fluticasone No Fluticason Propionate Propionate e 50 MCG/ACT 50 MCG/ACT Propionate 50 MCG/ACT Omeprazole Omeprazole No BID Omeprazole 40 MG 40 MG 40 MG Tiotropium Tiotropium No QD Tiotropium [facility] Monohydrate Monohydrate Monohydrat 18 MCG 18 MCG e 18 MCG Budesonide Budesonide No Budesonide 0.5 MG/2ML 0.5 MG/2ML 0.5 MG/2ML Nucala 100 Nucala 100 No Nucala 100 MG/ML MG/ML MG/ML Furosemide Furosemide No Furosemide 40 MG 40 MG 40 MG Clopidogrel Clopidogrel No 1{table QD Clopidogre Bisulfate Bisulfate t} l 75 MG 75 MG Bisulfate 75 MG Aspirin 81 Aspirin 81 No 1{table QD Aspirin 81 81 MG 81 MG t} 81 MG Arformotero Arformotero No Arformoter l Tartrate l Tartrate ol 15 MCG/2ML 15 MCG/2ML Tartrate 15 MCG/2ML ProAir HFA ProAir HFA No 1{puff_ 6xD ProAir HFA 108 (90 108 (90 as_need 108 (90 Base) Base) ed} Base) MCG/ACT MCG/ACT MCG/ACT Arformotero Arformotero No Arformoter l Tartrate l Tartrate ol 15 MCG/2ML 15 MCG/2ML Tartrate 15 MCG/2ML Fluticasone Fluticasone No Fluticason Propionate Propionate e 50 MCG/ACT 50 MCG/ACT Propionate 50 MCG/ACT Ibuprofen Ibuprofen No Ibuprofen ProAir HFA ProAir HFA No 1{puff_ 6xD ProAir HFA 108 (90 108 (90 as_need 108 (90 Base) Base) ed} Base) MCG/ACT MCG/ACT MCG/ACT Clopidogrel Clopidogrel No 1{table QD Clopidogre Bisulfate Bisulfate t} l 75 MG 75 MG Bisulfate 75 MG Tiotropium Tiotropium No QD Tiotropium [facility] Monohydrate Monohydrate Monohydrat 18 MCG 18 MCG e 18 MCG Budesonide Budesonide No Budesonide 0.5 MG/2ML 0.5 MG/2ML 0.5 MG/2ML Furosemide Furosemide No Furosemide 40 MG 40 MG 40 MG Nucala 100 Nucala 100 No Nucala 100 MG/ML MG/ML MG/ML Atorvastati Atorvastati No 1{table Atorvastat n Calcium n Calcium t} in Calcium 40 MG 40 MG 40 MG predniSONE predniSONE No predniSONE 5 MG 5 MG 5 MG Metoprolol Metoprolol No 1{table BID Metoprolol Tartrate 25 Tartrate 25 t_with_ Tartrate MG MG food} 25 MG Omeprazole Omeprazole No BID Omeprazole 40 MG 40 MG 40 MG Aspirin 81 Aspirin 81 No 1{table QD Aspirin 81 81 MG 81 MG t} 81 MG Arformotero Arformotero No Arformoter l Tartrate l Tartrate ol 15 MCG/2ML 15 MCG/2ML Tartrate 15 MCG/2ML Fluticasone Fluticasone No Fluticason Propionate Propionate e 50 MCG/ACT 50 MCG/ACT Propionate 50 MCG/ACT Ibuprofen Ibuprofen No Ibuprofen ProAir HFA ProAir HFA No 1{puff_ 6xD ProAir HFA 108 (90 108 (90 as_need 108 (90 Base) Base) ed} Base) MCG/ACT MCG/ACT MCG/ACT Clopidogrel Clopidogrel No 1{table QD Clopidogre Bisulfate Bisulfate t} l 75 MG 75 MG Bisulfate 75 MG Tiotropium Tiotropium No QD Tiotropium [facility] Monohydrate Monohydrate Monohydrat 18 MCG 18 MCG e 18 MCG Budesonide Budesonide No Budesonide 0.5 MG/2ML 0.5 MG/2ML 0.5 MG/2ML Furosemide Furosemide No Furosemide 40 MG 40 MG 40 MG Nucala 100 Nucala 100 No Nucala 100 MG/ML MG/ML MG/ML Atorvastati Atorvastati No 1{table Atorvastat n Calcium n Calcium t} in Calcium 40 MG 40 MG 40 MG predniSONE predniSONE No predniSONE 5 MG 5 MG 5 MG Metoprolol Metoprolol No 1{table BID Metoprolol Tartrate 25 Tartrate 25 t_with_ Tartrate MG MG food} 25 MG Omeprazole Omeprazole No BID Omeprazole 40 MG 40 MG 40 MG Aspirin 81 Aspirin 81 No 1{table QD Aspirin 81 81 MG 81 MG t} 81 MG predniSONE predniSONE No predniSONE 5 MG 5 MG 5 MG Clopidogrel Clopidogrel No 1{table QD Clopidogre Bisulfate Bisulfate t} l 75 MG 75 MG Bisulfate 75 MG Omeprazole Omeprazole No BID Omeprazole 40 MG 40 MG 40 MG Fluticasone Fluticasone No Fluticason Propionate Propionate e 50 MCG/ACT 50 MCG/ACT Propionate 50 MCG/ACT Atorvastati Atorvastati No 1{table Atorvastat n Calcium n Calcium t} in Calcium 40 MG 40 MG 40 MG Furosemide Furosemide No Furosemide 40 MG 40 MG 40 MG Tiotropium Tiotropium No QD Tiotropium [facility] Monohydrate Monohydrate Monohydrat 18 MCG 18 MCG e 18 MCG Metoprolol Metoprolol No 1{table BID Metoprolol Tartrate 25 Tartrate 25 t_with_ Tartrate MG MG food} 25 MG Ibuprofen Ibuprofen No Ibuprofen Arformotero Arformotero No Arformoter l Tartrate l Tartrate ol 15 MCG/2ML 15 MCG/2ML Tartrate 15 MCG/2ML ProAir HFA ProAir HFA No 1{puff_ 6xD ProAir HFA 108 (90 108 (90 as_need 108 (90 Base) Base) ed} Base) MCG/ACT MCG/ACT MCG/ACT Aspirin 81 Aspirin 81 No 1{table QD Aspirin 81 81 MG 81 MG t} 81 MG Budesonide Budesonide No Budesonide 0.5 MG/2ML 0.5 MG/2ML 0.5 MG/2ML Nucala 100 Nucala 100 No Nucala 100 MG/ML MG/ML MG/ML predniSONE predniSONE No predniSONE 5 MG 5 MG 5 MG Clopidogrel Clopidogrel No 1{table QD Clopidogre Bisulfate Bisulfate t} l 75 MG 75 MG Bisulfate 75 MG Omeprazole Omeprazole No BID Omeprazole 40 MG 40 MG 40 MG Fluticasone Fluticasone No Fluticason Propionate Propionate e 50 MCG/ACT 50 MCG/ACT Propionate 50 MCG/ACT Atorvastati Atorvastati No 1{table Atorvastat n Calcium n Calcium t} in Calcium 40 MG 40 MG 40 MG Furosemide Furosemide No Furosemide 40 MG 40 MG 40 MG Tiotropium Tiotropium No QD Tiotropium [facility] Monohydrate Monohydrate Monohydrat 18 MCG 18 MCG e 18 MCG Metoprolol Metoprolol No 1{table BID Metoprolol Tartrate 25 Tartrate 25 t_with_ Tartrate MG MG food} 25 MG Ibuprofen Ibuprofen No Ibuprofen Arformotero Arformotero No Arformoter l Tartrate l Tartrate ol 15 MCG/2ML 15 MCG/2ML Tartrate 15 MCG/2ML ProAir HFA ProAir HFA No 1{puff_ 6xD ProAir HFA 108 (90 108 (90 as_need 108 (90 Base) Base) ed} Base) MCG/ACT MCG/ACT MCG/ACT Aspirin 81 Aspirin 81 No 1{table QD Aspirin 81 81 MG 81 MG t} 81 MG Budesonide Budesonide No Budesonide 0.5 MG/2ML 0.5 MG/2ML 0.5 MG/2ML Nucala 100 Nucala 100 No Nucala 100 MG/ML MG/ML MG/ML Metoprolol Metoprolol No 1{table BID Metoprolol Tartrate 25 Tartrate 25 t_with_ Tartrate MG MG food} 25 MG Arformotero Arformotero No Arformoter l Tartrate l Tartrate ol 15 MCG/2ML 15 MCG/2ML Tartrate 15 MCG/2ML Clopidogrel Clopidogrel No Clopidogre Bisulfate Bisulfate l 75 MG 75 MG Bisulfate 75 MG Furosemide Furosemide No Furosemide 40 MG 40 MG 40 MG Atorvastati Atorvastati No 1{table Atorvastat n Calcium n Calcium t} in Calcium 40 MG 40 MG 40 MG Budesonide Budesonide No Budesonide 0.5 MG/2ML 0.5 MG/2ML 0.5 MG/2ML Tiotropium Tiotropium No QD Tiotropium [facility] Monohydrate Monohydrate Monohydrat 18 MCG 18 MCG e 18 MCG ProAir HFA ProAir HFA No 1{puff_ 6xD ProAir HFA 108 (90 108 (90 as_need 108 (90 Base) Base) ed} Base) MCG/ACT MCG/ACT MCG/ACT Fluticasone Fluticasone No Fluticason Propionate Propionate e 50 MCG/ACT 50 MCG/ACT Propionate 50 MCG/ACT predniSONE predniSONE No predniSONE 5 MG 5 MG 5 MG Omeprazole Omeprazole No BID Omeprazole 40 MG 40 MG 40 MG Aspirin 81 Aspirin 81 No 1{table QD Aspirin 81 81 MG 81 MG t} 81 MG Nucala 100 Nucala 100 No Nucala 100 MG/ML MG/ML MG/ML Metoprolol Metoprolol No 1{table BID Metoprolol Tartrate 25 Tartrate 25 t_with_ Tartrate MG MG food} 25 MG Arformotero Arformotero No Arformoter l Tartrate l Tartrate ol 15 MCG/2ML 15 MCG/2ML Tartrate 15 MCG/2ML Clopidogrel Clopidogrel No Clopidogre Bisulfate Bisulfate l 75 MG 75 MG Bisulfate 75 MG Furosemide Furosemide No Furosemide 40 MG 40 MG 40 MG Atorvastati Atorvastati No 1{table Atorvastat n Calcium n Calcium t} in Calcium 40 MG 40 MG 40 MG Budesonide Budesonide No Budesonide 0.5 MG/2ML 0.5 MG/2ML 0.5 MG/2ML Tiotropium Tiotropium No QD Tiotropium [facility] Monohydrate Monohydrate Monohydrat 18 MCG 18 MCG e 18 MCG ProAir HFA ProAir HFA No 1{puff_ 6xD ProAir HFA 108 (90 108 (90 as_need 108 (90 Base) Base) ed} Base) MCG/ACT MCG/ACT MCG/ACT Fluticasone Fluticasone No Fluticason Propionate Propionate e 50 MCG/ACT 50 MCG/ACT Propionate 50 MCG/ACT predniSONE predniSONE No predniSONE 5 MG 5 MG 5 MG Omeprazole Omeprazole No BID Omeprazole 40 MG 40 MG 40 MG Aspirin 81 Aspirin 81 No 1{table QD Aspirin 81 81 MG 81 MG t} 81 MG Nucala 100 Nucala 100 No Nucala 100 MG/ML MG/ML MG/ML Furosemide Furosemide No Furosemide 40 MG 40 MG 40 MG ProAir HFA ProAir HFA No 1{puff_ 6xD ProAir HFA 108 (90 108 (90 as_need 108 (90 Base) Base) ed} Base) MCG/ACT MCG/ACT MCG/ACT Nucala 100 Nucala 100 No Nucala 100 MG/ML MG/ML MG/ML Aspirin 81 Aspirin 81 No 1{table QD Aspirin 81 81 MG 81 MG t} 81 MG Tiotropium Tiotropium No QD Tiotropium [facility] Monohydrate Monohydrate Monohydrat 18 MCG 18 MCG e 18 MCG Arformotero Arformotero No Arformoter l Tartrate l Tartrate ol 15 MCG/2ML 15 MCG/2ML Tartrate 15 MCG/2ML Fluticasone Fluticasone No Fluticason Propionate Propionate e 50 MCG/ACT 50 MCG/ACT Propionate 50 MCG/ACT predniSONE predniSONE No predniSONE 5 MG 5 MG 5 MG Metoprolol Metoprolol No 1{table BID Metoprolol Tartrate 25 Tartrate 25 t_with_ Tartrate MG MG food} 25 MG Clopidogrel Clopidogrel No Clopidogre Bisulfate Bisulfate l 75 MG 75 MG Bisulfate 75 MG Atorvastati Atorvastati No 1{table Atorvastat n Calcium n Calcium t} in Calcium 40 MG 40 MG 40 MG Budesonide Budesonide No Budesonide 0.5 MG/2ML 0.5 MG/2ML 0.5 MG/2ML Omeprazole Omeprazole No BID Omeprazole 40 MG 40 MG 40 MG Omeprazole Omeprazole No Omeprazole 40 MG 40 MG 40 MG Furosemide Furosemide No Furosemide 40 MG 40 MG 40 MG ProAir HFA ProAir HFA No 1{puff_ 6xD ProAir HFA 108 (90 108 (90 as_need 108 (90 Base) Base) ed} Base) MCG/ACT MCG/ACT MCG/ACT Nucala 100 Nucala 100 No Nucala 100 MG/ML MG/ML MG/ML Immunizations Ordered Filled Immunization Date Status Comments Sourc e Immunization Name Name Influenza Virus 2022-02-17 Completed [facility]it [facility] Vaccine,quad 00:[facility] [place] [facility] 65+ Influenza Virus 2022-02-17 Completed [facility]it [facility] Vaccine,quad 00:00:00 [place] [facility] Free Branch 65+ SARS-COV-2 COVID-19 2020-07-23 Completed Unive rsity of PFIZER VACCINE 00:00:00 [facility] SARS-COV-2 COVID-19 2020-07-23 Completed Unive rsity of PFIZER VACCINE 00:00:00 [facility] SARS-COV-2 COVID-19 2020-07-23 Completed Unive rsity of PFIZER VACCINE 00:00:00 [facility] SARS-COV-2 COVID-19 2020-07-23 Completed Unive rsity of PFIZER VACCINE 00:00:00 [facility] SARS-COV-2 COVID-19 2020-07-23 Completed Unive rsity of PFIZER VACCINE 00:00:00 [facility] SARS-COV-2 COVID-19 2020-07-23 Completed Unive rsity of PFIZER VACCINE 00:00:00 [facility] SARS-COV-2 COVID-19 2020-07-23 Completed Unive rsity of PFIZER VACCINE 00:00:00 [facility] SARS-COV-2 COVID-19 2020-07-23 Completed Unive rsity of PFIZER VACCINE 00:00:00 [facility] SARS-COV-2 COVID-19 2020-07-03 Completed Unive rsity of PFIZER VACCINE 00:00:00 [facility] SARS-COV-2 COVID-19 2020-07-03 Completed Unive rsity of PFIZER VACCINE 00:00:00 [facility] SARS-COV-2 COVID-19 2020-07-03 Completed Unive rsity of PFIZER VACCINE 00:00:00 [facility] SARS-COV-2 COVID-19 2020-07-03 Completed Unive rsity of PFIZER VACCINE 00:00:00 [facility] SARS-COV-2 COVID-19 2020-07-03 Completed Unive rsity of PFIZER VACCINE 00:00:00 [facility] SARS-COV-2 COVID-19 2020-07-03 Completed Unive rsity of PFIZER VACCINE 00:00:00 [facility] SARS-COV-2 COVID-19 2020-07-03 Completed Unive rsity of PFIZER VACCINE 00:00:00 [facility] SARS-COV-2 COVID-19 2020-07-03 Completed Unive rsity of PFIZER VACCINE 00:00:00 [facility] Influenza High Dose 2020-02-15 Completed Unive rsity of 00:00:00 [facility] Influenza High Dose 2020-02-15 Completed Unive rsity of 00:00:00 [facility] Influenza High Dose 2020-02-15 Completed Unive rsity of 00:00:00 [facility] Influenza High Dose 2020-02-15 Completed Unive rsity of 00:00:00 [facility] Influenza High Dose 2020-02-15 Completed Unive rsity of 00:00:00 [facility] Influenza High Dose 2020-02-15 Completed Unive rsity of 00:00:00 [facility] Influenza High Dose 2020-02-15 Completed Unive rsity of 00:00:00 [facility] Influenza High Dose 2020-02-15 Completed Unive rsity of 00:00:00 [facility] Influenza High Dose 2019-02-02 Completed Unive rsity of 00:00:00 [facility] Influenza High Dose 2019-02-02 Completed Unive rsity of 00:00:00 [facility] Influenza High Dose 2019-02-02 Completed Unive rsity of 00:00:00 [facility] Influenza High Dose 2019-02-02 Completed Unive rsity of 00:00:00 [facility] Influenza High Dose 2019-02-02 Completed Unive rsity of 00:00:00 [facility] Influenza High Dose 2019-02-02 Completed Unive rsity of 00:00:00 [facility] Influenza High Dose 2019-02-02 Completed Unive rsity of 00:00:00 [facility] Influenza High Dose 2019-02-02 Completed Unive rsity of 00:00:00 [facility] Pneumococcal 2017-09-22 Completed University o f Polysaccharide, 00:00:00 [place] [facility] PPSV23 (PNEUMOVAX) Branch Pneumococcal 2017-09-22 Completed University o f Polysaccharide, 00:00:00 [place] [facility] PPSV23 (PNEUMOVAX) Branch Pneumococcal 2017-09-22 Completed University o f Polysaccharide, 00:00:00 [place] [facility] PPSV23 (PNEUMOVAX) Branch Pneumococcal 2017-09-22 Completed University o f Polysaccharide, 00:00:00 [place] [facility] PPSV23 (PNEUMOVAX) Branch Pneumococcal 2017-09-22 Completed University o f Polysaccharide, 00:00:00 [place] [facility] PPSV23 (PNEUMOVAX) Branch Pneumococcal 2017-09-22 Completed University o f Polysaccharide, 00:00:00 [place] [facility] PPSV23 (PNEUMOVAX) Branch Pneumococcal 2017-09-22 Completed University o f Polysaccharide, 00:00:00 [place] [facility] PPSV23 (PNEUMOVAX) Branch Pneumococcal 2017-09-22 Completed University o f Polysaccharide, 00:00:00 [place] [facility] PPSV23 (PNEUMOVAX) Branch Zoster(Zostavax)( 2017-01-14 Completed Unive rsity of ingles) 00:00:00 [facility] Zoster Vaccine 2017-01-14 Completed University of Recombinant 00:00:00 [facility] Zoster(Zostavax)( 2017-01-14 Completed Unive rsity of ingles) 00:00:00 [facility] Zoster Vaccine 2017-01-14 Completed University of Recombinant 00:00:00 [facility] Zoster(Zostavax)( 2017-01-14 Completed Unive rsity of ingles) 00:00:00 [facility] Zoster Vaccine 2017-01-14 Completed University of Recombinant 00:00:00 [facility] Zoster(Zostavax)( 2017-01-14 Completed Unive rsity of ingles) 00:00:00 [facility] Zoster Vaccine 2017-01-14 Completed University of Recombinant 00:00:00 [facility] Zoster(Zostavax)( 2017-01-14 Completed Unive rsity of ingles) 00:00:00 [facility] Zoster Vaccine 2017-01-14 Completed University of Recombinant 00:00:00 [facility] Zoster(Zostavax)( 2017-01-14 Completed Unive rsity of ingles) 00:00:00 [facility] Zoster Vaccine 2017-01-14 Completed University of Recombinant 00:00:00 [facility] Zoster(Zostavax)( 2017-01-14 Completed Unive rsity of ingles) 00:00:00 [facility] Zoster Vaccine 2017-01-14 Completed University of Recombinant 00:00:00 [facility] Zoster(Zostavax)(Sh 2017-01-14 Completed [facility] of y[facility]ira) 00:00:00 [facility] Zoster Vaccine 2017-01-14 Completed University of Recombinant 00:00:00 [facility] Pneumococcal 13 2015-09-11 Completed Universit y of Conjugate, PCV13 00:00:00 [facility] dical (Prevnar 13) Branch Pneumococcal 13 2015-09-11 Completed Universit y of Conjugate, PCV13 00:00:00 [facility] dical (Prevnar 13) Branch Pneumococcal 13 2015-09-11 Completed Universit y of Conjugate, PCV13 00:00:00 [facility] dical (Prevnar 13) Branch Pneumococcal 13 2015-09-11 Completed Universit y of Conjugate, PCV13 00:00:00 [facility] dical (Prevnar 13) Branch Pneumococcal 13 2015-09-11 Completed Universit y of Conjugate, PCV13 00:00:00 [facility] dical (Prevnar 13) Branch Pneumococcal 13 2015-09-11 Completed Universit y of Conjugate, PCV13 00:00:00 [facility] dical (Prevnar 13) Branch Pneumococcal 13 2015-09-11 Completed Universit y of Conjugate, PCV13 00:00:00 [facility] dical (Prevnar 13) Branch Pneumococcal 13 2015-09-11 Completed Universit y of Conjugate, PCV13 00:00:00 [facility] dical (Prevnar 13) Branch Influenza Virus 2013-01-18 Completed Universit y of Vaccine (3+ yrs) 00:00:00 [facility] Influenza Virus 2013-01-18 Completed Universit y of Vaccine (3+ yrs) 00:00:00 [facility] Influenza Virus 2013-01-18 Completed Universit y of Vaccine (3+ yrs) 00:00:00 [facility] Influenza Virus 2013-01-18 Completed Universit y of Vaccine (3+ yrs) 00:00:00 [facility] Influenza Virus 2013-01-18 Completed Universit y of Vaccine (3+ yrs) 00:00:00 [facility] Influenza Virus 2013-01-18 Completed Universit y of Vaccine (3+ yrs) 00:00:00 [facility] Influenza Virus 2013-01-18 Completed Universit y of Vaccine (3+ yrs) 00:00:00 [place] [facility] Influenza Virus 2013-01-18 Completed Universit y of Vaccine (3+ yrs) 00:00:00 [facility] Zoster(Zostavax)( 2012-05-20 Completed Unive rsity of ingles) 00:00:00 [facility] Zoster(Zostavax)( 2012-05-20 Completed Unive rsity of ingles) 00:00:00 [facility] Zoster(Zostavax)( 2012-05-20 Completed Unive rsity of ingles) 00:00:00 [facility] Zoster(Zostavax)( 2012-05-20 Completed Unive rsity of ingles) 00:00:00 [facility] Zoster(Zostavax)( 2012-05-20 Completed Unive rsity of ingles) 00:00:00 [facility] Zoster(Zostavax)( 2012-05-20 Completed Unive rsity of ingles) 00:00:00 [facility] Zoster(Zostavax)( 2012-05-20 Completed Unive rsity of ingles) 00:00:00 [facility] Zoster(Zostavax)( 2012-05-20 Completed Unive rsity of ingles) 00:00:00 [facility] Influenza Virus 2010-12-11 Completed Universit y of Vaccine (3+ yrs) 00:00:00 [facility] Influenza Virus 2010-12-11 Completed Universit y of Vaccine (3+ yrs) 00:00:00 [facility] Influenza Virus 2010-12-11 Completed Universit y of Vaccine (3+ yrs) 00:00:00 [facility] Influenza Virus 2010-12-11 Completed Universit y of Vaccine (3+ yrs) 00:00:00 [facility] Influenza Virus 2010-12-11 Completed Universit y of Vaccine (3+ yrs) 00:00:00 [facility] Influenza Virus 2010-12-11 Completed Universit y of Vaccine (3+ yrs) 00:00:00 [facility] Influenza Virus 2010-12-11 Completed Universit y of Vaccine (3+ yrs) 00:00:00 [facility] Influenza Virus 2010-12-11 Completed Universit y of Vaccine (3+ yrs) 00:00:00 [place] [facility] Influenza Virus 2010-01-16 Completed Universit y of Vaccine (3+ yrs) 00:00:00 [facility] Influenza Virus 2010-01-16 Completed Universit y of Vaccine (3+ yrs) 00:00:00 [facility] Influenza Virus 2010-01-16 Completed Universit y of Vaccine (3+ yrs) 00:00:00 [facility] Influenza Virus 2010-01-16 Completed Universit y of Vaccine (3+ yrs) 00:00:00 [facility] Influenza Virus 2010-01-16 Completed Universit y of Vaccine (3+ yrs) 00:00:00 [facility] Influenza Virus 2010-01-16 Completed Universit y of Vaccine (3+ yrs) 00:00:00 [facility] Influenza Virus 2010-01-16 Completed Universit y of Vaccine (3+ yrs) 00:00:00 [facility] Influenza Virus 2010-01-16 Completed Universit y of Vaccine (3+ yrs) 00:00:00 [facility] Influenza Virus 2009-02-14 Completed Universit y of Vaccine (3+ yrs) 00:00:00 [facility] Influenza Virus 2009-02-14 Completed Universit y of Vaccine (3+ yrs) 00:00:00 [facility] Influenza Virus 2009-02-14 Completed Universit y of Vaccine (3+ yrs) 00:00:00 [facility] Influenza Virus 2009-02-14 Completed Universit y of Vaccine (3+ yrs) 00:00:00 [facility] Influenza Virus 2009-02-14 Completed Universit y of Vaccine (3+ yrs) 00:00:00 [facility] Branch Influenza Virus 2009-02-14 Completed Universit y of Vaccine (3+ yrs) 00:00:00 [facility] Influenza Virus 2009-02-14 Completed Universit y of Vaccine (3+ yrs) 00:00:00 [facility] Influenza Virus 2009-02-14 Completed Universit y of Vaccine (3+ yrs) 00:00:00 [facility] Influenza Virus 2008-01-04 Completed Universit y of Vaccine (3+ yrs) 00:00:00 [facility] Influenza Virus 2008-01-04 Completed Universit y of Vaccine (3+ yrs) 00:00:00 [facility] Influenza Virus 2008-01-04 Completed Universit y of Vaccine (3+ yrs) 00:00:00 [facility] Influenza Virus 2008-01-04 Completed Universit y of Vaccine (3+ yrs) 00:00:00 [facility] Influenza Virus 2008-01-04 Completed Universit y of Vaccine (3+ yrs) 00:00:00 [facility] Influenza Virus 2008-01-04 Completed Universit y of Vaccine (3+ yrs) 00:00:00 [facility] Influenza Virus 2008-01-04 Completed Universit y of Vaccine (3+ yrs) 00:00:00 [facility] Influenza Virus 2008-01-04 Completed Universit y of Vaccine (3+ yrs) 00:00:00 [facility] TDAP 2007-05-11 Completed University of 00:00:00 [facility] TDAP 2007-05-11 Completed University of 00:00:00 [facility] TDAP 2007-05-11 Completed University of 00:00:00 [facility] TDAP 2007-05-11 Completed University of 00:00:00 [facility] TDAP 2007-05-11 Completed University of 00:00:00 [facility] TDAP 2007-05-11 Completed University of 00:00:00 [facility] TDAP 2007-05-11 Completed University of 00:00:00 [facility] TDAP 2007-05-11 Completed University of 00:00:00 [facility] Influenza Virus 2007-01-14 Completed Universit y of Vaccine (3+ yrs) 00:00:00 [facility] Influenza Virus 2007-01-14 Completed Universit y of Vaccine (3+ yrs) 00:00:00 [facility] Influenza Virus 2007-01-14 Completed Universit y of Vaccine (3+ yrs) 00:00:00 [facility] Influenza Virus 2007-01-14 Completed Universit y of Vaccine (3+ yrs) 00:00:00 [facility] Influenza Virus 2007-01-14 Completed Universit y of Vaccine (3+ yrs) 00:00:00 [facility] Influenza Virus 2007-01-14 Completed Universit y of Vaccine (3+ yrs) 00:00:00 [facility] Influenza Virus 2007-01-14 Completed Universit y of Vaccine (3+ yrs) 00:00:00 [facility] Branch Influenza Virus 2007-01-14 Completed Universit y of Vaccine (3+ yrs) 00:00:00 [facility] dical Branch Pneumococcal 2003-01-14 Completed University o f Polysaccharide, 00:00:00 [place] [facility] PPSV23 (PNEUMOVAX) Branch Pneumococcal 2003-01-14 Completed University o f Polysaccharide, 00:00:00 [place] [facility] PPSV23 (PNEUMOVAX) Branch Pneumococcal 2003-01-14 Completed University o f Polysaccharide, 00:00:00 [place] [facility] PPSV23 (PNEUMOVAX) Branch Pneumococcal 2003-01-14 Completed University o f Polysaccharide, 00:00:00 [place] [facility] PPSV23 (PNEUMOVAX) Branch Pneumococcal 2003-01-14 Completed University o f Polysaccharide, 00:00:00 [place] [facility] PPSV23 (PNEUMOVAX) Branch Pneumococcal 2003-01-14 Completed University o f Polysaccharide, 00:00:00 [place] [facility] PPSV23 (PNEUMOVAX) Branch Pneumococcal 2003-01-14 Completed University o f Polysaccharide, 00:00:00 [place] [facility] PPSV23 (PNEUMOVAX) Branch Pneumococcal 2003-01-14 Completed University o f Polysaccharide, 00:00:00 [place] [facility] PPSV23 (PNEUMOVAX) Branch Vital Signs Vital Name Observation Time Observation Value Comments Source height 2022-04-09 10:00:00 64 [in_i] [facility] weight 2022-04-09 10:00:00 173.6 [lb_av] Common [facility] temperature 2022-04-09 10:00:00 98.7 [degF] [facility] bmi 2022-04-09 10:00:00 29.8 kg/m2 [facility] oximetry 2022-04-09 10:00:00 98 % [facility] respiratory rate 2022-04-09 10:00:00 18 /min Comm on [facility] blood pressure 2022-04-09 10:00:00 195 mm[Hg] Common [facility] systolic [facility] blood pressure 2022-04-09 10:00:00 92 mm[Hg] [facility] Systolic blood 2022-02-17 16:37:00 162 mm[Hg] Univer sity of pressure [facility] Diastolic blood 2022-02-17 16:37:00 81 mm[Hg] Unive rsity of pressure [facility] Heart rate 2022-02-17 16:37:00 70 /min Universi ty of [facility] Respiratory rate 2022-02-17 16:34:00 19 /min Univ ersity [facility] Body height 2022-02-17 16:34:00 157.5 cm Universi ty of [facility] Body weight 2022-02-17 16:34:00 79.697 kg Universi ty [facility] BMI 2022-02-17 16:34:00 32.14 kg/m2 Universi [facility] Oxygen saturation in 2022-02-17 16:34:00 98 /min [facility] Arterial blood by [facility] Pulse oximetry Branch height 2022-01-23 10:30:00 64 [in_i] [facility] - [facility] weight 2022-01-23 10:30:00 178.4 [lb_av] [facility] temperature 2022-01-23 10:30:00 98.1 [degF] [facility] bmi 2022-01-23 10:30:00 30.62 kg/m2 Common [facility] - [facility] blood pressure 2022-01-23 10:30:00 128 mm[Hg] [facility] blood pressure 2022-01-23 10:30:00 82 mm[Hg] [facility] height 2021-10-30 09:40:00 64 [in_i] [facility] - [facility] weight 2021-10-30 09:40:00 179 [lb_av] Common S pirit [facility] temperature 2021-10-30 09:40:00 97.6 [degF] Common S pirit [facility] bmi 2021-10-30 09:40:00 30.72 kg/m2 Common S pirit - [facility] oximetry 2021-10-30 09:40:00 97 % Common [facility] - [facility] respiratory rate 2021-10-30 09:40:00 16 /min Comm on [facility] blood pressure 2021-10-30 09:40:00 130 mm[Hg] Common [facility] - systolic [facility] blood pressure 2021-10-30 09:40:00 76 mm[Hg] Common [facility] - diastolic [facility] height 2021-07-29 08:40:00 62 [in_i] [facility] weight 2021-07-29 08:40:00 178.2 [lb_av] [facility] temperature 2021-07-29 08:40:00 97.5 [degF] [facility] bmi 2021-07-29 08:40:00 32.59 kg/m2 Common S pirit [facility] oximetry 2021-07-29 08:40:00 96 % Common S [facility] respiratory rate 2021-07-29 08:40:00 16 /min Comm on [facility] blood pressure 2021-07-29 08:40:00 122 mm[Hg] Common [facility] - systolic [facility] blood pressure 2021-07-29 08:40:00 60 mm[Hg] Common [facility] - diastolic [facility] height 2021-07-29 09:00:00 62 [in_i] Common S pirit [facility] weight 2021-07-29 09:00:00 178.2 [lb_av] [facility] temperature 2021-07-29 09:00:00 97.5 [degF] Common S pirit [facility] bmi 2021-07-29 09:00:00 32.59 kg/m2 [facility] oximetry 2021-07-29 09:00:00 96 % Common S pirit [facility] respiratory rate 2021-07-29 09:00:00 16 /min Comm on [facility] blood pressure 2021-07-29 09:00:00 122 mm[Hg] Common [facility] - systolic [facility] blood pressure 2021-07-29 09:00:00 60 mm[Hg] Common [facility] - diastolic [facility] height 2021-07-02 09:00:00 62 [in_i] [facility] weight 2021-07-02 09:00:00 169.6 [lb_av] [facility] temperature 2021-07-02 09:00:00 97.1 [degF] [facility] bmi 2021-07-02 09:00:00 31.02 kg/m2 [facility] oximetry 2021-07-02 09:00:00 98 % [facility] respiratory rate 2021-07-02 09:00:00 16 /min Comm on [facility] blood pressure 2021-07-02 09:00:00 142 mm[Hg] Common [facility] - systolic [facility] blood pressure 2021-07-02 09:00:00 76 mm[Hg] Common [facility] - diastolic [facility] HEIGHT 2021-06-13 10:49:00 157.5 cm WEIGHT 2021-06-13 10:49:00 74.844 kg HEIGHT 2021-06-13 10:49:00 157.5 cm WEIGHT 2021-06-13 10:49:00 74.844 kg Systolic blood 2021-06-13 10:49:00 145 mm[Hg] [facility] Diastolic blood 2021-06-13 10:49:00 75 mm[Hg] [facility] Heart rate 2021-06-13 10:49:00 90 /min [facility] Body temperature 2021-06-13 10:49:00 36.39 Radha [facility] Respiratory rate 2021-06-13 10:49:00 14 /min [facility] Body height 2021-06-13 10:49:00 157.5 cm [facility] Body weight 2021-06-13 10:49:00 74.844 kg [facility] BMI 2021-06-13 10:49:00 30.18 kg/m2 [facility] Oxygen saturation in 2021-06-13 10:49:00 97 /min [facility] Arterial blood by Medical Ce nter Pulse oximetry Procedures Procedure Date / Time Performed Performing Clinician Sourc e FLU 2022-02-17 16:55:[facility] [place] VACC(),65+YR, Medical [facility] 0.5 ML,IM,ADJUVANTED,QUAD( FLUAD) INDIVIDUAL CARDIAC 2021-09-27 21:53:00 Doctor Unassigned, No [facility] [place] TREATMENT PLAN Name Medical Branch Plan of Care Planned Activity Planned Date Details Comments Source Future Scheduled 2022-06-[address] [facility] Test 00:00:00 [facility] Cent[facility] r Screening (12+) [code = Tobacco Cessation Counseling and Screening (12+)] Future Scheduled 2022-03-[address] [facility] Test 00:00:00 (12+) [code = Medical Center DEPRESSION SCREENING (12+)] Future Scheduled 2022-03-16 FALLS RISK SCREENING [facility] Test 00:00:00 [code = FALLS RISK Medical C enter SCREENING] Future Scheduled 2021-11-14 INFLUENZA VACCINE (#1) [facility]:00 [code = INFLUENZA Medical Ce nter VACCINE (#1)] Future Scheduled 2020-12-23 COVID-19 VACCINE (3 - [facility] 00:[facility]:00 Booster for Pfizer Medical C enter series) [code = COVID-19 VACCINE (3 - Booster for Pfizer series)] Future Scheduled 2017-05-11 DTAP/TDAP/TD VACCINES [facility] 00:00:00 (2 - Td or Tdap) [code Medic al Center = DTAP/TDAP/TD VACCINES (2 - Td or Tdap)] Future Scheduled 2017-03-11 SHINGLES VACCINES ([address] [facility] 00:00:00 3) [code = SHINGLES Medical Center VACCINES (2 of 3)] Future Scheduled 2016-05-[address] [facility] 00:00:00 WELLNESS (YEAR 2 or Medical Center FIRST YEAR if no IPPE) [code = MEDICARE ANNUAL WELLNESS (YEAR 2 or FIRST YEAR if no IPPE)] Future Scheduled 2015-06-[address] [facility] Test 00:00:00 aneurysm screening Medical C enter (procedure) [code = 114990599] Future Scheduled 1968 HEPATITIS C SCREENING [facility] 00:00:00 [code = HEPATITIS C Medical Center SCREENING] Future Scheduled 1950 CT Colonography (combo) [facility] Test 00:00:00 [code = CT Colonography [facility] (combo)] Future Scheduled 1950 Screening for malignant [facility] Test 00:00:00 neoplasm of colon Medical Ce nter (procedure) [code = 807104889] Future Scheduled 1950 Screening for malignant [facility] Test 00:00:00 neoplasm of colon Medical Ce nter (procedure) [code = 004346084] Future Scheduled 1950 Screening for malignant [facility] 00:00:00 neoplasm of colon Medical Ce nter (procedure) [code = 437573293] Future Scheduled 1950 Screening for malignant [facility] Test 00:00:00 neoplasm of colon Medical Ce nter (procedure) [code = 750333794] Future Scheduled 1950 Sigmoidoscopy [code [facility]] Medical Cente r Encounters Start End Encounter Admission Attending Care Care Encounter Source Date/Time Date/Time Type Type Clinicians Facility Department ID 2022-04-04 Outpatient De Jesus, [facility] [id number] Common 11:21:02 Chelsie [address] [facility] 2022-01-23 Outpatient De Jesus, [facility] [id number] Common 11:42:01 Chelsie [facility] 2022-01-09 Outpatient Neal [facility] [id number] Common 14:19:01 Chelsie [facility] 2021-10-28 Outpatient De Jesus, [facility] [id number] Common 11:01:01 Chelsie [facility] 2021-10-24 Outpatient De Jesus, STLMLC [facility] [id number] Common 10:37:05 Chelsie [facility] 2021-07-03 Outpatient De Jesus, STLMLC STLMLC [id number] Common 09:47:03 Chelsie [facility] 2021-07-02 Outpatient De Jesus, STLMLC STLMLC [id number] Common 08:44:04 Chelsie [facility] 2022-08-18 2022-08-18 Outpatient BENNY GERARDO [facility] [id number] Univers 10:00:00 10:00:00 BENNY DING i ty of [facility] 2022-04-15 2022-04-15 (TEL) STLMLC STLMLC [id number] Co mmon 00:00:00 00:00:00 [facility] 2022-04-09 2022-04-09 OFFICE STLMLC STLMLC [id number] Co mmon 00:00:00 00:00:00 VISIT NEW Spir it PT LEVEL 3 [facility] 2022-02-17 2022-02-17 Outpatient BENNY GERARDO [facility] 10 [id number] Univers 10:30:00 10:59:59 BENNY DING i ty [facility] 2022-02-17 2022-02-17 Office Deangelo [facility] 1.2.840.114 [id number] Univers 10:30:00 10:59:59 Visit Benny SAMS 350.1.13.10 i ty [facility] 4.2.7.2.686 Thom delgado PROFESSIO [phone] [address] 2022-02-17 2022-02-17 Outpatient BENNY GERARDO [facility] 10 [id number] Univers 10:30:00 10:30:00 BENNY DING i ty of [facility] 2022-01-30 2022-01-30 (TEL) STLMLC STLMLC [id number] Co mmon 00:00:00 00:00:00 [facility] 2022-01-23 2022-01-23 OFFICE STLMLC STLMLC [id number] Co mmon 00:00:00 00:00:00 VISIT NEW Spir it PT LEVEL 4 - [facility] 2021-12-13 2021-12-13 Patient Casey [facility] 1.2.840.114 [id number] Univers 00:00:00 00:00:00 Outreach AddFleet 350.1.13.10 i ty of [place] 4.2.7.2.686 Dwain as JOHANN?BLEA [phone] Me [address] MEDICAL OFFICE BUILDING 2021-11-28 2021-11-28 Telephone Team, [facility] ANDREA 1.2.840.114 [id number] Univers 00:00:00 00:00:00 Health CARLITOS 350.1.13.10 it y of [facility] 4.2.7.2.686 [place] [phone] [place] 968242 [place] 2021-10-31 2021-10-31 Outpatient R CHATO, [facility] [id number] Univers 10:30:00 10:30:00 SEBASTIANOSCAR jairy o [facility] 2021-10-30 2021-10-30 OFFICE STLC STLC [id number] Co mmon 00:00:00 00:00:00 VISIT Florentin ESTAB PT - CHI LEVEL 4 [facility] 2021-10-15 2021-10-15 Outpatient R CHATO, [facility] [id number] Univers 10:30:00 10:30:00 SEBASTIANOSCAR ity o [facility] 2021-10-10 2021-10-10 Outpatient R CHATO, [facility] [id number] Univers 10:30:00 10:30:00 SEBASTIANOSCAR ity o [facility] 2021-09-30 2021-09-30 (TEL) STLC STLC [id number] Co mmon 00:00:00 00:00:00 [facility] 2021-09-27 2021-09-27 Orders Doctor ANDREA 1.2.840.114 [id number] Univers 00:00:00 00:00:00 Only Unassigned, CARLITOS 350.1.13.10 [facility] 4.2.7.2.686 [place]ain [place] [phone] [facility] [address] 2021-09-17 2021-09-17 Outpatient R CHATO, [facility] [id number] Univers 10:30:00 10:30:00 MARSHA barnes o [facility] 2021-09-17 2021-09-17 Outpatient R CHATO, [facility] [id number] Univers 10:30:00 10:30:00 MARSHA adamy o [facility] 2021-09-17 2021-09-17 Reftamara Amaya [facility] 1.2.840.114 [id number] Univers 00:00:00 00:00:00 [facility] 350.1.13.10 i ty of [facility] 4.2.7.2.686 Dwain as [phone] [facility] [address] 2021-09-17 2021-09-17 [facility] 1.2.840.114 [id number] Univers 00:00:00 00:00:00 Benny SAMS 350.1.13.10 i ty [place] [phone] Ak dical NAL 085 [facility] 2021-09-12 2021-09-12 Outpatient R CHATO, [facility] [id number] Univers 10:30:00 10:30:00 MARSHA barnes o [facility] 2021-08-22 2021-08-22 Inspection Manager Rehab, [facility] Cardiac [facility] 1.2. 840.114 [id number] Univers 10:30:00 11:24:28 Visit ChatoMarsha 350.1.13.10 ity of [facility] 4.2.7.2.[place] [phone] Ak dical NAL 060 [facility] 2021-08-22 2021-08-22 Inspection Manager Rehab, [facility] Cardiac [facility] 1.2. 840.114 [id number] Univers 10:30:00 11:24:28 Visit ChatoMarsha 350.1.13.10 ity of [facility] 4.2.7.2.[place] [phone] Ak dicny NAL 060 [facility] 2021-08-22 2021-08-22 Outpatient R CHATO [facility] [id number] Univers 10:30:00 10:30:00 MARSHA ity o f [facility] 2021-08-20 2021-08-20 Inspection Manager Rehab, Adc Cardiac [facility] 1.2. 840.114 [id number] Univers 10:30:00 11:29:06 Visit Marsha Reis 350.1.13.10 ity of [place] 4[place].2.[place] [phone] [place] 588310 [facility] 2021-08-20 2021-08-20 Orders Doctor ANDREA 1.2.840.114 [id number] Univers 00:00:00 00:00:00 Only Unassigned, CARLITOS 350.1.13.10 ity of [place] [facility] 4.2.7.2.686 Dwain [place] [phone] [address] 2021-08-16 2021-08-16 Outpatient R BENNY DING [facility] 10 [id number] Univers 13:30:00 14:29:24 BENNY DING i ty of [facility] 2021-08-16 2021-08-16 Office [facility] 1.2.840.114 [id number] Univers 13:30:00 14:29:24 Visit Benny SAMS 350.1.13.10 i ty of [place] 4[place]2.7.2.[place] [phone] Ak dicny NAL 085 [facility] 2021-08-16 2021-08-16 Outpatient R BENNY DING [facility] 10 [id number] Univers 13:30:00 13:30:00 BENNY DING i ty of [facility] 2021-08-16 2021-08-16 Telephone Deangelo [facility] 1.2.281.140 [id number] Univers 00:00:00 00:00:00 Benny SAMS 350.1.13.10 i ty of [place] [phone] Ak dical NAL 085 [facility] 2021-08-15 2021-08-15 Inspection Manager Rehab, [facility] Cardiac [facility] 1.2. 840.114 [id number] [facility] 10:30:00 11:28:31 Visit Marsha ReisTON 350.1.13.10 ity of [place] 4.[place].7.2.[place] [phone] Ak dical NAL [address] [place] [address] 2021-08-15 2021-08-15 Inspection Manager Rehab, [facility] Cardiac [facility] 1.. 840.114 [id number] [facility] 10:30:00 11:28:31 Visit Marsha ReisTON 350.1.13.10 ity of [place] 4.2.7.2.[place] [phone] Ak dicny NAL [address] [place] [address] 2021-08-15 2021-08-15 Outpatient R CHATO, [facility] [id number] Univers 10:30:00 10:30:00 QIASULMA ity o [facility] 2021-08-15 2021-08-15 Outpatient R CHATO, [facility] [id number] Univers 10:30:00 10:30:00 QIANGOSCAR ity o [facility] 2021-08-15 2021-08-15 Outpatient R CHATO, [facility] [id number] Univers 10:30:00 10:30:00 MARSHA adamy o [facility] 2021-08-13 2021-08-13 Inspection Manager Rehab, [facility] Cardiac [facility] .. 840.114 [id number] [facility] 10:30:00 11:20:27 Visit Marsha ReisTON 350.1.13.10 ity of [place] 4.2.7.2.[place] [phone] Ak dical NAL [address] [place] [address] 2021-08-13 2021-08-13 Inspection Manager Rehab, [facility] Cardiac [facility] 1.2. 840.114 [id number] [facility] 10:30:00 11:20:27 Visit Marsha ReisTON 350.1.13.10 ity of [place] 4.2.7.2.[place] [phone] Ak dical NAL 060 [facility] 2021-08-13 2021-08-13 [facility] [id number] Univers 10:30:00 10:30:00 MARSHA ity o f [facility] 2021-08-08 2021-08-08 Inspection Manager Rehab, [facility] Cardiac [facility] 1.2. 840.114 [id number] [facility] 10:30:00 11:35:47 Visit Marsha Reis 350.1.13.10 ity of [place] 4[place].7.2.[place] [phone] Ak dicny NAL 0 [facility] 2021-08-08 2021-08-08 Inspection Manager Rehab, [facility] Cardiac [facility] 1.2. 840.114 [id number] [facility] 10:30:00 11:35:47 Visit Marsha Reis 350.1.13.10 ity of [place] 4[place]2.7.2.[place] [phone] Ak dical NAL 0 [facility] 2021-08-08 2021-08-08 Outpatient R CHATO [facility] [id number] Univers 10:30:00 10:30:00 SEBASTIANOSCAR molly o [facility] 2021-08-08 2021-08-08 Orders Doctor ANDREA 1..840.114 [id number] Univers 00:00:00 00:00:00 Only Unassigned, CARLITOS 350.1.13.10 ity of [place] [facility] 4.2.7.2.686 [place] [phone] [address] 2021-08-05 2021-08-05 Telephone [facility] 1.2.314.389 [id number] Univers 00:00:00 00:00:00 Benny SAMS 350.1.13.10 i ty of [place] [phone] Ak dical NAL 059 [facility] 2021-08-01 2021-08-01 Inspection Manager Rehab, [facility] Cardiac [facility] 1.2. 840.114 [id number] [facility] 10:30:00 11:40:53 Visit Renate Reispriceoscar LATRELL 350.1.13.10 ity of [place] 4.2.7.2.[place] [phone] Ak dical NAL 060 [facility] 2021-08-01 2021-08-01 Inspection Manager Rehab, [facility] Cardiac [facility] 1.2. 840.114 [id number] [facility] 10:30:00 11:40:53 Visit Marsha Reis 350.1.13.10 ity [facility] 4.2.7.2.[place] [phone] Ak dicisidra NAL [address] [place] [address] 2021-08-01 2021-08-01 Outpatient R CHATO [facility] [id number] [facility] 10:30:00 10:30:00 MARSHA barnes o f [facility] 2021-07-30 2021-07-30 Inspection Manager Rehab, [facility] Cardiac [facility] 1.2. 840.114 [id number] [facility] 10:30:00 11:22:25 Visit Marsha Reis 350.1.13.10 ity of [facility] 4.2.7.2.[place] [phone] [facility] NAL 060 [facility] 2021-07-29 2021-07-29 OFFICE [facility] [id number] Co mmon 00:00:00 00:00:00 VISIT EST Spir it PT LEVEL 3 - [facility] 2021-07-29 2021-07-29 SUB ANNUAL [facility] [id number] Common 00:00:00 00:00:00 MCR Spirit WELLNESS - [facility] VISIT [facility] 2021-07-26 2021-07-26 Telephone [facility] 1.2.145.842 [id number] Univers 00:00:00 00:00:00 Benny SAMS 350.1.13.10 i ty of [place] 4[place].2.[place] [phone] Ak dical NAL 085 [facility] 2021-07-25 2021-07-25 Inspection Manager Rehab, [facility] Cardiac [facility] 1.2. 840.114 [id number] Univers 10:30:00 11:02:21 Visit Marsha Reis 350.1.13.10 ity of [facility] 4.2.7.2.[place] [phone] Ak dical NAL 060 [facility] 2021-07-25 2021-07-25 Orders Doctor ANDREA 1.2.840.114 [id number] Univers 00:00:00 00:00:00 Only Unassigned, CARLITOS 350.1.13.10 ity of [facility] 4.2.7.2.686 Dwain [place] [phone] [address] 2021-07-23 2021-07-23 Inspection Manager Rehab, [facility] Cardiac [facility] 1.2. 840.114 [id number] [facility] 10:30:00 11:29:21 Visit Marsha Reis 350.1.13.10 ity of [place].2.[place] [phone] [address] 2021-07-23 2021-07-23 (TEL) STLC [facility] [id number] Co mmon 00:00:00 00:00:00 [facility] 2021-07-23 2021-07-23 Telephone Deangelo [facility] 1.2.773.305 [id number] Univers 00:00:00 00:00:00 Benny SAMS 350.1.13.10 i ty of [place].2.[place] [phone] [facility] 085 [facility] 2021-07-16 2021-07-16 Inspection Manager Rehab, [facility] Cardiac [facility] 1.2. 840.114 [id number] Univers 10:30:00 11:11:38 Visit Marsha Reis 350.1.13.10 ity of [facility] 4.2.7.2.[place] [phone] Ak dical NAL 060 [facility] 2021-07-16 2021-07-16 Outpatient R CHATO [facility] [id number] Univers 10:30:00 10:30:00 MARSHA adamy o f [facility] 2021-07-16 2021-07-16 Outpatient R CHATO, [facility] [id number] Univers 10:30:00 10:30:00 MARSHA adamy o f [facility] 2021-07-16 2021-07-16 Outpatient R CHATO, [facility] [id number] Univers 10:30:00 10:30:00 MARSHA adamy o [facility] 2021-07-16 2021-07-16 Outpatient R CHATO, [facility] [id number] Univers 10:30:00 10:30:00 MARSHA molly o [facility] 2021-07-16 2021-07-16 Orders Doctor ANDREA 1.2.840.114 [id number] Univers 00:00:00 00:00:00 Only Unassigned, CARLITOS 350.1.13.10 ity of [place] [facility] 4.2.7.2.686 Dwain as [phone] [address] 2021-07-11 2021-07-11 Inspection Manager Rehab, [facility] Cardiac [facility] 1.2. 840.114 [id number] [facility] 10:30:00 11:08:34 Visit Chato Marsha SAMS 350.1.13.10 ity of [place].7.2.[place] [phone] Ak dicMichel[place] 255960 [facility] 2021-07-11 2021-07-11 Outpatient R CHATO, [facility] [id number] Univers 10:30:00 10:30:00 MARSHA molly o [facility] 2021-07-11 2021-07-11 Orders Doctor ANDREA 1.2.840.114 [id number] Univers 00:00:00 00:00:00 Only Unassigned, CARLITOS 350.1.13.10 ity of [place] [facility] 4.2.7.2.686 Dwain as [phone] [address] 2021-07-09 2021-07-09 Inspection Manager Rehab, [facility] Cardiac [facility] 1.2. 840.114 [id number] Univers 10:30:00 11:54:01 Visit Chato, Qiangjun [place] 350.1.13.10 ity of [place] 4.2.7.2.[place] [phone] Ak dical NAL 060 [facility] 2021-07-09 2021-07-09 Outpatient R CHATO [facility] [id number] Univers 10:30:00 10:30:00 MARSHA ity o f [facility] 2021-07-09 2021-07-09 Orders Doctor ANDREA 1.2.840.114 [id number] Univers 00:00:00 00:00:00 Only Unassigned, CARLITOS 350.1.13.10 ity of [place] [facility] 4.2.7.2.686 Dwain as [phone] [address] 2021-07-04 2021-07-05 Inspection Manager Rehab, [facility] Cardiac [facility] 1.2. 840.114 [id number] Univers 10:30:00 16:13:22 Visit Marsha Reis 350.1.13.10 ity of [place] 4.2.7.2.[place] [phone] Ak dical NAL 0 [facility] 2021-07-04 2021-07-04 Inspection Manager Rehab, [facility] Cardiac [facility] 1.2. 840.114 [id number] Univers 10:30:00 12:00:00 Visit Marsha Reis 350.1.13.10 ity of [place] 4.2.7.2.[place] [phone] Ak dical NAL [address] [place] [address] 2021-07-04 2021-07-04 Outpatient R CHATO [facility] [id number] Univers 10:30:00 10:30:00 MARSHA ity o [facility] 2021-07-04 2021-07-04 [facility] [id number] Univers 10:30:00 10:30:00 MARSHA ity o [facility] 2021-07-04 2021-07-04 Orders Doctor MENDEZ 1.2.840.114 [id number] Univers 00:00:00 00:00:00 Only Unassigned, CARLITOS 350.1.13.10 ity of [place] [facility] 4.2.7.2.686 Dwain as [phone] [facility] [address] 2021-07-04 2021-07-04 Refill DOMENICO Amaya 1.2.840.114 [id number] Univers 00:00:00 00:00:00 Jeannie Y HEALTH 350.1.13.10 i ty of [facility] 4.2.7.2.686 Dwain as [phone] [facility] [address] 2021-07-04 2021-07-04 Refill Deangelo [facility] 1.2.840.114 [id number] Univers 00:00:00 00:00:00 Benny SAMS 350.1.13.10 i ty of [place].2.[place] [phone] Ak dical NAL 085 [facility] 2021-07-02 2021-07-02 Inspection Manager Rehab, [facility] Cardiac [facility] 1.2. 840.114 [id number] Univers 10:30:00 11:22:47 Visit Marsha Reis 350.1.13.10 ity of [place] 4[place]2.7.2.[place] [phone] Ak dical NAL 060 [facility] 2021-07-02 2021-07-02 OFFICE [facility] [id number] Co mmon 00:00:00 00:00:00 VISIT NEW Spir it PT LEVEL 4 - [facility] 2021-07-02 2021-07-02 (TEL) [facility] [id number] Co mmon 00:00:00 00:00:00 Spirit - [facility] 2021-07-02 2021-07-02 Orders Doctor ANRDEA 1.2.840.114 [id number] Univers 00:00:00 00:00:00 Only Unassigned, CARLITOS 350.1.13.10 ity of [facility] 4.2.7.2.686 Dwain [place] [phone] [facility] [address] 2021-07-01 2021-07-01 Telephone Agus [facility] 1.2.912.740 [id number] Univers 00:00:00 00:00:00 Lauryn HEALTH 350.1.13.10 it y [facility] 4.2.7.2.686 [place]ain [place] JOHANN?BLEA [phone] Ak dical KNEY [address] [place] MEDICAL OFFICE [facility] 2021-06-30 2021-06-30 RefDOMENICO Aguilar 1.2.271.724 [id number] Univers 00:00:00 00:00:00 Jaja L Y HEALTH 350.1.13.10 ity of [place]2.7.2.[place] [phone] [facility] [address] [place] 2021-06-27 2021-06-27 Orders Doctor ANDREA 1.2.840.114 [id number] Univers 00:00:00 00:00:00 Only Unassigned, CARLITOS 350.1.13.10 ity of [place] [facility] 4.2.7.2.686 Dwain as [phone] [facility] [address] [place] 2021-06-26 2021-06-26 Inspection Manager Rehab, Adc Cardiac [facility] 1.2. 840.114 [id number] Univers 10:00:00 10:58:45 Visit Marsha Reis 350.1.13.10 ity of [place].2.[place] [phone] Ak dical NAL 060 [facility] 2021-06-26 2021-06-26 Orders Doctor ANDREA 1.2.840.114 [id number] Univers 00:00:00 00:00:00 Only Unassigned, CARLITOS 350.1.13.10 ity of [place] [facility] 4.2.7.2.686 Dwain as [phone] [facility] [address] [place] 2021-06-26 2021-06-26 Refill Deangelo [facility] 1.2.840.114 [id number] Univers 00:00:00 00:00:00 Benny SAMS 350.1.13.10 i ty of [place].2.[place] [phone] Ak dical NAL 085 [facility] 2021-06-19 2021-06-19 Telephone Deangelo [facility] 1.2.393.407 [id number] Univers 00:00:00 00:00:00 Benny SAMS 350.1.13.10 i ty [facility] 4.2.7.2.[place] [phone] Ak dical NAL 059 [facility] 2021-06-17 2021-06-17 Inspection Manager Shannan, Adc Lab Main [facility] 1.2.8 40.114 [id number] Univers 12:30:00 12:45:00 Visit Ozzie Munoz 350.1.13.10 ity of [facility] 4.2.7.2.[place] [phone] Ak dical NAL 353 [facility] 2021-06-17 2021-06-17 Outpatient [facility] [id number] Univers 12:30:00 12:30:00 OZZIE itmike [facility] 2021-06-16 2021-06-16 [facility] alegria 1.2.840.114 [id number] Univers 08:02:00 23:59:00 Encounter Ozize H 350.1.13.10 ity of [facility] 4.2.7.2.686 [place] [phone] [address] 2021-06-16 2021-06-16 Outpatient [facility] [id number] Univers 00:00:00 23:59:00 OZZIE itmike [facility] 2021-06-15 2021-06-15 [facility] RUIZ Munoz 1.2.840.114 [id number] Univers 09:55:00 23:59:00 Encounter Ozzie H 350.1.13.10 ity of [facility] 4.2.7.2.686 [place] [phone] [address] 2021-06-15 2021-06-15 [facility] RUIZ Munoz 1.2.840.114 [id number] Univers 09:34:00 09:54:00 Encounter Ozzie H 350.1.13.10 ity of [facility] 4.2.7.2.686 [place] [phone] [address] 2021-06-15 2021-06-15 Outpatient Karl[facility] ACO [id number] Univers 00:00:00 09:54:00 OZZIE barnes [facility] 2021-06-15 2021-06-15 Outpatient R PRECIOUS [facility] ACO [id number] Univers 00:00:00 09:54:00 OZZIE adammike [facility] 2021-06-14 2021-06-14 Inspection Manager 2, Adc Lab [facility] 1.2.840.114 [id number] Univers 11:15:00 11:26:26 Visit Benny Ding 350.1.13.10 [place] [id number] Me dical NAL 353 [facility] 2021-06-14 2021-06-14 Outpatient R BENNY DING [facility] 10 [id number] Univers 11:15:00 11:15:00 BENNY DING i ty of [facility] 2021-06-14 2021-06-14 Office Deangelo [facility] 1.2.840.114 [id number] Univers 10:00:00 11:01:59 Visit Benny SAMS 350.1.13.10 i [place] [id number] Ak dical NAL 085 [facility] 2021-06-14 2021-06-14 Outpatient R BENNY DING [facility] 10 [id number] Univers 10:00:00 10:00:00 BENNY DING i ty of [facility] 2021-06-14 2021-06-14 Telephone Deangelo [facility] [id number] Univers 00:00:00 00:00:00 Benny SAMS 350.1.13.10 i [place] [id number] Ak dical NAL 085 [facility] 2021-06-14 2021-06-14 Orders Doctor MENDEZ 1.2.840.114 [id number] Univers 00:00:00 00:00:00 Only Unassigned, CARLITOS 350.1.13.10 ity of [place] [facility] 4.2.7.2.686 [place] as [phone] [address] 2021-06-13 2021-06-13 Office Jessika [facility] [id number] [facility] 11:30:00 12:00:00 Visit Mac [facility] 2021-06-13 2021-06-13 Outpatient MARCUS CHILDS [facility] [id number] [facility] 10:45:51 10:45:51 [facility] 2021-06-06 2021-06-06 Outpatient LNIO DEL CASTILLO [facility] [id number] Univers 13:30:00 14:15:16 ity of [facility] 2021-06-06 2021-06-06 Office Lino Araujo [facility] 1.2.840.114 [id number] Univers 13:30:00 14:15:16 Visit Y HEALTH 350.1.13.10 i [place] [phone] [facility] [address] [place] 2021-06-06 2021-06-06 Orders Doctor ANDREA 1.2.840.114 [id number] Univers 00:00:00 00:00:00 Only Unassigned, CARLITOS 350.1.13.10 ity of [place] [facility] 4.2.7.2.686 Dwain as [phone] [facility] [address] 2021-06-05 2021-06-05 DOMENICO Delaney 1.2.054.202 [id number] Univers 00:00:00 00:00:00 Jaja L Y HEALTH 350.1.13.10 [place] [id number] [facility] [address] 2021-05-28 2021-05-28 Transition JOSÉ MIGUEL Mccarthy 1.2.840.114 [id number] Univers 00:00:00 00:00:00 of Care Greg OCHOAY 350.1.13.10 [place] [id number] [facility] [address] 2021-05-25 2021-05-26 Outpatient NOVA CALLEJAS [facility] SCT [id number] Univers 11:10:00 17:18:00 ity of [facility] 2021-05-25 2021-05-26 Emergency Juan Antonio Marin 1.2.840. 114 [id number] Univers 11:10:00 17:18:00 Nova Lucero 350.1.13.10 ity of [facility] 4.2.7.2.686 [place] [phone] [facility] [address] 2021-05-23 2021-05-23 Transition JOSÉ MIGUEL Lance 1.2.840.114 [id number] Univers 00:00:00 00:00:00 of Care Daniela Currie MCKIN[place] 350.1.13.10 [place] [id number] [facility] [address] 2021-05-15 2021-05-22 Inpatient X LINO ARAUJO [facility] [id number] Univers 10:29:00 14:00:00 ity of [facility] 2021-05-15 2021-05-22 Hospital Roverto Coleman 1.2.8 40.114 [id number] Univers 10:29:00 14:00:00 Encounter Lino Araujo 350.1.13.10 ity [facility] 4.2.7.2.686 [place] [phone] [facility] [address] 2021-05-20 2021-05-20 Outpatient R CHATO, [facility] [id number] Univers 13:00:00 13:00:00 MARSHA barnes o f [facility] 2021-05-15 2021-05-15 Outpatient R LEEROY, [facility] [id number] Univers 13:00:00 13:00:00 SENDIL ity of [facility] 2021-05-10 2021-05-10 Telephone DOMENICO Real 1.2.840.114 [id number] Univers 00:00:00 00:00:00 Jaja Fields Y [facility] 350.1.13.10 ity of [place] [phone] [facility] [address] 2021-05-09 2021-05-09 Office Lino Araujo 1.2.840.114 [id number] Univers 14:00:00 14:23:15 Visit Y HEALTH 350.1.13.10 i ty of [place] [id number] [address] 2021-05-09 2021-05-09 Outpatient R VAN LINO [facility] [id number] Univers 14:00:00 14:23:15 ity of [facility] 2021-05-09 2021-05-09 Outpatient R KIRANRohithLINO [facility] [id number] Univers 14:00:00 14:00:00 ity of [facility] 2021-05-09 2021-05-09 Case ANDREA Real 1.2.840.114 [id number] Univers 00:00:00 00:00:00 Management Jaja URBINA 350.1.13.10 ity of [facility] 4.2.7.2.686 [place] [phone] [address] 2021-05-07 2021-05-07 Outpatient R ADDIE [facility] [id number] Univers 10:09:36 23:59:00 JAJA barnes [facility] 2021-05-06 2021-05-06 Telephone ANDREA Real 1.2.156.739 [id number] Univers 00:00:00 00:00:00 Jaja URBINA 350.1.13.10 ity of [facility] 4.2.7.2.686 [place] [phone] [address] 2021-05-05 2021-05-05 ANDREA Wood 1.2.263.870 [id number] Univers 00:00:00 00:00:00 Jaja URBINA 350.1.13.10 ity of [facility] 4.2.7.2.686 [place] [phone] [address] 2021-05-02 2021-05-02 Telephone DOMENICO Real 1.2.840.114 [id number] Univers 00:00:00 00:00:00 Jaja MARIA 350.1.13.10 it[place] [id number] [address] 2021-04-30 2021-04-30 Transition JOSÉ MIGUEL Fox 1.2.840.114 [id number] Univers 00:00:00 00:00:00 of Care Natasha Diamond MCKINNEY 350.1.13.10 i [place] [id number] [facility] [address] 2021-04-15 2021-04-29 Inpatient X LINO ARAUJO [facility] [id number] Univers 21:54:00 13:07:00 ity of [facility] 2021-04-15 2021-04-29 [facility] Essence Whitlock TYREL 1.2.840. 114 [id number] Univers 21:54:00 13:07:00 Encounter Dunia White 350.1.13 .10 ity of [facility] 4.2.7.2.686 [place] [facility] [phone] Medical KiranrohithLino Eleuterio [facility] 2021-04-15 2021-04-29 Inpatient X LINO ARAUJO [facility] [id number] Univers 21:54:00 13:07:00 ity of [facility] 2021-04-29 2021-04-29 Refill Germaine [facility] 1.2.840.114 [id number] Univers 00:00:00 00:00:00 [facility] 350.1.13.10 i ty of [place] 4.2.7.2.686 [place] as ESSMAGDALENO [phone] [address] OFFICE BUILDING ONE 2021-04-22 2021-04-22 Surgery KiranrohithLino 1.2.840.114 [id number] Univers 07:15:00 15:19:00 CARLITOS 350.1.13.10 it y of [facility] 4.2.7.2.686 [place] [phone] [facility] [address] 2021-04-11 2021-04-11 Inspection Manager Therapist, Emilie Respiratory [facility] 1.2.840.114 [id number] Univers 12:30:00 14:00:00 Visit Freddie Hargrove 350.1.13. 10 [place] of [place] [id number] [facility] [address] [place] 2021-04-11 2021-04-11 Outpatient R CARRIE [facility] [id number] Univers 12:30:00 12:30:00 FREDDIE ity of [facility] 2021-04-11 2021-04-11 Orders Doctor ANDREA 1.2.840.114 [id number] Univers 00:00:00 00:00:00 Only Unassigned, CARLITOS 350.1.13.10 ity of [place] [facility] 4.2.7.2.686 [place] [phone] [facility] [address] [place] 2021-04-10 2021-04-10 [facility] 1.2.840.114 [id number] Univers 00:00:00 00:00:00 [facility] 350.1.13.10 it y [facility] 4.2.7.2.686 [place] JOHANN?BLEA [phone] [address] MEDICAL OFFICE BUILDING 2021-04-08 2021-04-08 Outpatient R BENNY DING [facility] [id number] Univers 09:15:00 09:15:00 BENNY DING i ty of [facility] 2021-03-28 2021-03-28 Telephone [facility] 1.2.046.212 [id number] Univers 00:00:00 00:00:00 Benny SAMS 350.1.13.10 i ty of [facility] 4.2.[place].2.[place] PROF[place] [id number] [address] 2021-03-27 2021-03-27 Telephone [facility] 1.2.869.600 [id number] Univers 00:00:00 00:00:00 [facility] S[facility] 350.1.13.10 i ty of [facility] 4.2.7.2.[place] [phone] [address] 2021-03-21 2021-03-21 Inspection Manager 2, Adc Lab [facility] 1.2.840.114 [id number] Univers 16:00:00 16:05:00 Visit Benny Ding 350.1.13.10 ity of [facility] 4.2.7.2.[place] [phone] Ak dical NAL 353 [facility] 2021-03-21 2021-03-21 Office [facility] 1.2.840.114 [id number] Univers 15:30:00 16:03:35 Visit Benny JOSEPHCHARLY 350.1.13.10 i ty of [facility] 4.2.7.2.[place] [id number] Ak dical NAL 085 [facility] 2021-03-21 2021-03-21 Outpatient R BENNY DING [facility] [id number] Univers 16:00:00 16:00:00 BENNY DING i ty of [facility] 2021-03-21 2021-03-21 Outpatient R KEY DINGIAChacorta [facility] [id number] Univers 16:00:00 16:00:00 BENNY DING i ty of [facility] 2021-03-18 2021-03-18 [facility] [id number] Univers 11:56:04 23:59:00 LAURYN ity [facility] 2021-03-18 2021-03-18 [facility] 1.2.840.114 [id number] Univers 11:56:04 23:59:00 Encounter Lauryn HEALTH 350.1.13.10 ity of [place] 4.2.7.2.686 [place] JOHANN?BLEA [phone] Ak jessaisidra AMADORIVANNA 809 [facility] 2021-03-18 2021-03-18 Office [facility] 1.2.840.114 [id number] Univers 11:30:00 11:57:02 Visit Lauryn HEALTH 350.1.13.10 it y of [place] 4.2.7.2.686 [place] JOHANN?BLEA [phone] Ak dical AMADOREY 044 [facility] 2021-03-18 2021-03-18 Outpatient [facility] [id number] Univers 11:56:04 11:56:04 LAURYN ity [facility] 2021-03-13 2021-03-13 Reftamara Rodriguez [facility] 1.2.840.114 [id number] Univers 00:00:00 00:00:00 Elaine SAMS 350.1.13.10 ity of [facility] 4.2.7.2.[place] [facility] [phone] Ak dical NAL 059 [facility] 2021-03-01 2021-03-01 Outpatient R [facility] [id number] Univers 11:00:00 11:22:42 LAURYN ity [facility] 2021-03-01 2021-03-01 Office [facility] 1.2.840.114 [id number] Univers 11:00:00 11:22:42 Visit Lauryn [facility] 350.1.13.10 it y of [facility] 4.2.7.2.686 [place] as JOHANN?BLEA [phone] Ak dical KNEY [address] [place] MEDICAL OFFICE BUILDING 2021-03-01 2021-03-01 Outpatient R AGUS [facility] [id number] Univers 11:00:00 11:00:00 LAURYN ity [facility] 2021-02-26 2021-02-26 Transition HeidykarlJOSÉ MIGUEL 1.2.840.114 [id number] Univers 00:00:00 00:00:00 of Care Natasha MCKINNEY 350.1.13.10 [place] [id number] [facility] [address] 2021-02-23 2021-02-25 Outpatient X CHINYERE [facility] [id number] Univers 19:18:00 16:55:00 ESSENCE ity of [facility] 2021-02-23 2021-02-25 Emergency Essence Whitlock S [facility] 1.2.840 .114 [id number] Univers 19:18:00 16:55:00 Malvin Borrego 350.1.13.10 ity of [facility] 4.2.7.2.[place] [id number] [facility] [address] 2021-02-25 2021-02-25 Outpatient R CODEY ALVAREZ [facility] [id number] Univers 15:00:00 15:00:00 CODEY ALVAREZ i ty [facility] 2021-02-18 2021-02-18 Kaleb Graham [facility] 1.2.840.114 [id number] Univers 00:00:00 00:00:00 Radha HEALTH 350.1.13.10 it y of [place] 4.2.7.2.686 [place] JOHANN?BLEA [phone] [facility] [address] [place] MEDICAL OFFICE BUILDING 2021-02-11 2021-02-11 Telephone [facility] 1.2.002.158 [id number] 2015 [facility] 00:00:00 00:00:00 Lauryn HEALTH 350.1.13.10 it y of [place] 4.2.7.2.686 [place] JOHANN?BLEA [phone] [facility] [address] [place] MEDICAL OFFICE [facility] 2021-02-06 2021-02-06 Telephone Agus [facility] 1.2.857.677 [id number] Univers 00:00:00 00:00:00 Lauryn [employer] 350.1.13.10 it y of [place] 4.2.7.2.686 [place] JOHANN?BLEA [phone] [facility] 044 [facility] OFFICE [facility] 2021-02-05 2021-02-05 Inspection Manager Lab, Ang - Jonny [facility] 1.2.840.1 14 [id number] Univers 10:57:40 11:12:40 Visit Agus Lauryn [employer] 350.1.13.10 ity of [place] 4.2.7.2.686 [place] JOHANN?BLEA [id number] [facility] [address] [place] MEDICAL OFFICE [facility] 2021-02-05 2021-02-05 Outpatient R AGUS [facility] [id number] Univers 11:00:00 11:00:00 LAURYN itmike [facility] 2021-02-05 2021-02-05 Office [facility] 1.2.840.114 [id number] Univers 10:15:22 10:59:06 Visit LaurynMoverati 350.1.13.10 it y of [place] 4.2.7.2.686 [place] as JOHANN?BLEA [id number] Ak vitaly CONRAD [address] [place] MEDICAL OFFICE [facility] 2021-02-05 2021-02-05 Outpatient R AGUS [facility] [id number] Univers 10:30:00 10:30:00 LAURYN barnes [facility] 2021-02-05 2021-02-05 Telephone Agus [facility] 1.2.942.036 [id number] Univers 00:00:00 00:00:00 Lauryn HEALTH 350.1.13.10 it y of [place] 4.2.7.2.686 [place] JOHANN?BLEA [phone] Ak vitaly CONRAD [address] [place] MEDICAL OFFICE [facility] 2021-02-01 2021-02-01 Hospital [facility] 1.2.840.114 [id number] Univers 09:51:21 23:59:00 Encounter Radha HEALTH 350.1.13.10 ity of [place] 4.2.7.2.686 [place] JOHANN?BLEA [phone] Ak vitaly [place] [address] [place] MEDICAL OFFICE [facility] 2021-02-01 2021-02-01 Outpatient R BELEN [facility] [id number] Univers 09:20:00 10:40:55 RADHA barnes [facility] 2021-02-01 2021-02-01 Urgent [facility] 1.2.840.114 [id number] Univers 09:09:39 10:40:55 Care [facility] 350.1.13.10 it y [facility] 4.2.7.2.686 [place] JOHANN?BLEA [phone] Ak vitaly CON[place] [address] [place] MEDICAL OFFICE [facility] 2021-01-24 2021-01-24 Outpatient R JANENE [facility] [id number] Univers 09:40:00 09:40:00 LORAINE barnes [facility] 2021-01-24 2021-01-24 Urgent AdrienstewartGerry denniswendy [facility] 1.2.840.114 [id number] Univers 09:19:42 09:39:42 Care Song, Gwendolyn HEALTH 350.1.13.10 ity of [facility] 4.2.7.2.686 [place] JOHANN?BLEA [id number] [facility] [address] [place] MEDICAL OFFICE [facility] 2021-01-21 2021-01-21 Outpatient R WILD [facility] [id number] Univers 11:00:00 11:00:00 ARIELLA barnes [facility] 2021-01-15 2021-01-15 Emergency X [facility] ERT [id number] Univers 09:13:00 12:38:00 SHAZIA barnes [facility] 2021-01-15 2021-01-15 Emergency [facility] 1.2.531.712 [id number] Univers 09:13:00 12:38:00 Shazia [place] 350.1.13.10 i ty of [place] 4[place]2.7.2.686 [place] [facility] [id number] [address] 2021-01-06 2021-01-06 Telephone [facility] 1.2.840.114 [id number] Univers 00:00:00 00:00:00 [facility] 350.1.13.10 it y of [place] 4.2.7.2.686 [place] Johann?Blea [phone] [facility] [address] [place] Medical Office [facility] 2021-01-04 2021-01-04 Hospital [facility] 1.2.451.929 [id number] Univers 14:34:30 23:59:00 Encounter [facility] 350.1.13.10 ity of [place] 4.2.7.2.686 [place] Johann?Blea [phone] [facility] [address] [place] Medical Office [facility] 2021-01-04 2021-01-04 Urgent [facility] 1.2.840.114 [id number] Univers 14:14:32 15:05:04 Care [facility] 350.1.13.10 it y of [place] 4.2.7.2.686 [place] Johann?Blea [phone] [facility] [address] [place] Medical Office [facility] 2021-01-04 2021-01-04 Outpatient R JANENE [facility] [id number] Univers 14:20:00 14:20:00 LORAINE barnes [facility] 2020-11-06 2020-11-06 Outpatient R MAYLIN [facility] [id number] Univers 14:20:00 14:20:00 ASHWIN barnes [facility] 2020-11-06 2020-11-06 Office DOMENICO [place] 1.2.840.114 [id number] Univers 13:59:03 14:19:03 Visit Ashwin MARIA 350.1.13.10 i ty of [place] [id number] [facility] [address] 2020-11-06 2020-11-06 Orders Doctor ANDREA 1.2.840.114 [id number] Univers 00:00:00 00:00:00 Only Unassigned, CARLITOS 350.1.13.10 ity of [place] [facility] 4.2.7.2.686 Dwain as [id number] [facility] [address] 2020-10-15 2020-10-15 Outpatient R WILD [facility] [id number] Univers 15:15:00 15:15:00 ARIELLA [facility] 2020-10-01 2020-10-01 Outpatient R GERMAINE [facility] [id number] Univers 00:00:00 00:00:00 MIK hernandez [facility] 2020-09-04 2020-09-04 Outpatient R GERMAINE [facility] [id number] Univers 08:00:00 08:00:00 MIK hernandez [facility] 2020-08-02 2020-08-02 Outpatient R [facility] [id number] Univers 09:15:00 [facility] 2020-07-23 Outpatient R JUD [facility] [id number] Univers 09:50:00 09:50:00 KEVIN [facility] 2020-07-17 2020-07-17 [facility] [id number] Univers 09:00:00 09:00:00 ELAINE [facility] 2020-07-05 2020-07-05 [facility] [id number] Univers 10:00:00 10:00:00 SENDIL [facility] 2020-07-03 2020-07-03 Outpatient R JUD, [facility] [id number] Univers 09:50:00 09:50:00 KEVIN [facility] 2020-06-12 2020-06-12 Outpatient R WILD, [facility] [id number] Univers 10:30:00 10:30:00 ARIELLA [facility] 2020-05-23 2020-05-23 Outpatient R LEEROY, [facility] [id number] Univers 13:00:00 13:00:00 [facility] 2020-05-22 2020-05-22 Outpatient R GERMAINE, [facility] [id number] Univers 11:30:00 11:30:00 MIK jairmike castellano f [facility] 2019-04-22 2019-04-22 Outpatient R KE, [facility] [id number] Univers 10:40:00 11:13:35 JUAN ALBERTO [facility] Results Test Description Test Time Test Comments Results Result Comments Source [employer] 2021-07-24 00:00:00 Test Item Value Reference Range Interpretation Comme nts [employer] (test code = 4.8 MEQ/L See_Comment [Aut omated message] The system 2823-3) which generated this result transmitted ref erence range: 3.5-5.4 MEQ/L. The reference range was not used to interpret this result as margarita l/abnormal.
[2022-04-22] MEDS ORDERED: HYDRALAZINE HCL 20 MG/ML VIAL ONE (09:47)
[2022-04-22 10:02] LABS: Absolute Lymphocytes (CBC) 2.9 K/uL (0.7-4.9); MCV 88.1 fL (80-100); RBC Red Blood Cell Count 5.34 M/uL (4.33-5.43)
--- NOTE | 2022-04-22 10:04 | RAD REPORT ---
EXAM DESCRIPTION: CT - Head Brain Wo Cont - 04/22/2022 9:55 am CLINICAL HISTORY: elevated bp, headache COMPARISON: No comparisons TECHNIQUE: Axial 5 mm thick images of the head were obtained without IV contrast. All CT scans are performed using dose optimization technique as appropriate and may include automated exposure control or mA/KV adjustment according to patient size. FINDINGS: No intracranial hemorrhage, mass, edema or shift of mid-line structures. No acute cortical based infarction. No cortical edema or sulcal effacement. Atrophy changes are mild with ventricles i n proportion. No abnormal extra-axial fluid collections. Chronic ischemic changes minimal. Mastoid air cells and visualized portions of the paranasal sinuses are clear. No acute bony findings. IMPRESSION: No acute intracranial finding identifiable. Atrophy is mild and chronic ischemic changes are minimal. Ventricles are in proportion to any volume loss. Ongoing concerns for acute CVA could be further addressed with MR imaging as clinically warranted.
[2022-04-22 10:19] LABS: Potassium 4.1 mmol/L (3.5-5.1); Troponin High Sensitivity 10.1 pg/mL (<58.9)
--- NOTE | 2022-04-22 10:43 | EDPHYS ---
Physician Documentation [facility] Name: Patrick Andrews Age: 71 yrs Sex: Male : 1950 Arrival Date: 04/22/2022 Time: 09:19 Bed 3 Private MD: Chelsie Trejo ED Physician Wilman Diaz HPI: 04/22 09:37 This 71 yrs old Male presents to ER via Ambulatory with complaints of High Blood jmm Pressure. 09:37 Onset: The symptoms/episode began/occurred gradually. Modifying factors: The symptoms jmm are aggravated by. Associated signs and symptoms: Pertinent positives: headache. Is a 71-year-old male with history of hypertension, the presents emerged part with complaints of headache elevated blood pressure over the past 2 days. Patient states he is normally around 1 60-1 80 but recently went up to 200 systolic and developed headache. Denies any chest pain or shortness of breath. Denies weakness.. Historical: - Allergies: 09:30 No Known Allergies; ld1 - Home Meds: 09:30 metoprolol tartrate 75 mg Oral tab once daily [Active]; ld1 - PMHx: 09:30 Hypertensive disorder; GERD; Diverticulitis; neuropathy; ld1 - PSHx: 09:30 Open heart surgery; back surgery; ld1 - Immunization history:: Adult Immunizations up to date, Client reports receiving the 2nd dose of the Covid vaccine. - Social history:: Smoking status: Patient denies any tobacco usage or history of. Patient/guardian denies using alcohol. ROS: 09:37 Constitutional: Negative for fever, chills, and weight loss, Cardiovascular: Negative jmm for chest pain, palpitations, and edema, Respiratory: Negative for shortness of breath, cough, wheezing, and pleuritic chest pain. 09:37 Neuro: Positive for headache. 09:37 All other systems are negative. Exam: 09:37 Constitutional: This is a well developed, well nourished patient who is awake, alert, jmm and in no acute distress. Head/Face: atraumatic. Eyes: EOMI, no conjunctival erythema appreciated ENT: Moist Mucus Membranes Neck: Trachea midline, Supple Chest/axilla: Normal chest wall appearance and motion. Cardiovascular: Regular rate and rhythm. No edema appreciated Respiratory: Normal respirations, no respiratory distress appreciated Abdomen/GI: Non distended Back: Normal ROM Skin: General appearance color normal MS/ Extremity: Moves all extremities, no obvious deformities appreciated, no edema noted to the lower extremities Neuro: Awake and alert Psych: Behavior is normal, Mood is normal, Patient is cooperative and pleasant 09:37 ECG was reviewed by the Attending Physician. Vital Signs: 09:30 BP 208 / 92; Pulse 72; Resp 18; Temp 98.2(O); Pulse Ox 93% on R/A; Weight 77.11 kg; ld1 Height 5 ft. 2 in. (157.48 cm); Pain 0/10; 09:53 BP 217 / 96; Pulse 72; Resp 18; Pulse Ox 96% on R/A; Pain 0/10; ko1 10:01 BP 178 / 79; Pulse 75; Pulse Ox 97% ; ko1 10:08 BP 163 / 72; Pulse 77; Pulse Ox 95% ; ko1 10:52 BP 157 / 71; Pulse 70; Resp 15; Pulse Ox 96% ; jl7 09:30 Body Mass Index 31.09 (77.11 kg, 157.48 cm) ld1 MDM: 09:37 Patient medically screened. [facility] 10:41 Data reviewed: vital signs, nurses notes, EKG. I considered the following discharge [facility] prescriptions or medication management in the emergency department Medications were administered in the Emergency Department. See MAR. Care significantly affected by the following chronic conditions: Hypertension. Counseling: I had a detailed discussion with the patient and/or guardian regarding: the historical points, exam findings, and any diagnostic results supporting the discharge/admit diagnosis, lab results, radiology results, the need for outpatient follow up, to return to the emergency department if symptoms worsen or persist or if there are any questions or concerns that arise at home. ED course: Blood pressure reduced in the ED. Patient currently has no headache, chest pain. Labs are unremarkable. Patient advised to follow-up with PCP/cardiology and otherwise given strict return precautions. Patient understood and agrees plan of care.. 04/22 09:38 Order name: CBC with Diff; Complete Time: 10:11 [facility] 04/22 09:38 Order name: BMP; Complete Time: 10:19 [facility] 04/22 09:38 Order name: Troponin High Sensitivity; Complete Time: 10:19 [facility] 04/22 09:38 Order name: Saline Lock; Complete Time: 09:45 [facility] 04/22 09:38 Order name: CT Head Brain wo Cont; Complete Time: 10:06 [facility] 04/22 09:38 Order name: EKG - Nurse/Tech; Complete Time: 10:47 jm EC:37 Rate is 74 beats/min. Rhythm is regular. QRS [place] is Normal. SC interval is normal. QRS jmm interval is normal. QT interval is normal. No Q waves. T waves are Normal. No ST changes noted. Reviewed by me. Administered Medications: 09:53 Drug: hydrALAZINE 10 mg Route: IVP; Site: right antecubital; ko1 10:52 Follow up: Response: No adverse reaction; Blood pressure is lowered jl7 Disposition: 18:11 Co-signature as Attending Physician, Wilman Diaz DO I was immediately available on-site ms3 in the Emergency Department for consultation in the care of the patient. Disposition Summary: 04/22/22 10:42 Discharge Ordered Location: Home [facility] Condition: Stable jm Diagnosis - Hypertension [facility] Followup: jm - With: Private Physician - When: 1 - 2 days - Reason: Recheck today's complaints, Continuance of care, Re-evaluation by your physician Discharge Instructions: - Discharge Summary Sheet jm - Hypertension, Adult jm Forms: - Medication Reconciliation Form [facility] - Thank You Letter [facility] - Antibiotic Education [facility] - Prescription Opioid Use [facility] Prescriptions: - Norvasc 5 mg Oral Tablet - take 1 tablet by ORAL route once daily; 20 tablet; Refills: 0, Product [facility] Selection Permitted Signatures: Dispatcher [employer] EDAshwin Chang PA PA jmm Sims, Marcus, DO DO ms3 Linda Car, RN RN ld1 Karon Da Silva, RN RN ko1 Miquel Francisco RN jl7
--- NOTE | 2022-04-22 10:43 | ER ---
Nurse's Notes [facility] Name: Patrick Andrews Age: 71 yrs Sex: Male : 1950 Arrival Date: 04/22/2022 Time: 09:19 Bed 3 Private MD: Chelsie Trejo Diagnosis: Hypertension Presentation: 04/22 09:30 Chief complaint: Patient states: High blood pressure X 5 days. Called PCP and told me ld1 to come to ER. BP 208/92 in triage. Denies chest pain. C/O headache. Coronavirus screen: At this time, the client does not indicate any symptoms associated with coronavirus-19. Ebola Screen: No symptoms or risks identified at this time. Initial Sepsis Screen: Does the patient meet any 2 criteria? No. Patient's initial sepsis screen is negative. Does the patient have a suspected source of infection? No. Patient's initial sepsis screen is negative. Risk Assessment: Do you want to hurt yourself or someone else? Patient reports no desire to harm self or others. Onset of symptoms was April 22, 2022. 09:30 Method Of Arrival: Ambulatory ld1 09:30 Acuity: DANIEL 3 ld1 Triage Assessment: 09:30 General: Appears in no apparent distress. comfortable, Behavior is calm, cooperative, ld1 appropriate for age. Pain: Denies pain. EENT: No signs and/or symptoms were reported regarding the EENT system. Neuro: Level of Consciousness is awake, alert, obeys commands, Oriented to person, place, time, situation, Reports headache. Cardiovascular: Capillary refill < 3 seconds Patient's skin is warm and dry. Respiratory: Airway is patent Respiratory effort is even, unlabored. GI: Abdomen is round non-distended. : No signs and/or symptoms were reported regarding the genitourinary system. Derm: No signs and/or symptoms reported regarding the dermatologic system. Musculoskeletal: No signs and/or symptoms reported regarding the musculoskeletal system. Historical: - Allergies: :30 No Known Allergies; ld1 - Home Meds: :30 metoprolol tartrate 75 mg Oral tab once daily [Active]; ld1 - PMHx: :30 Hypertensive disorder; GERD; Diverticulitis; neuropathy; ld1 - PSHx: 09:30 Open heart surgery; back surgery; ld1 - Immunization history:: Adult Immunizations up to date, Client reports receiving the 2nd dose of the Covid vaccine. - Social history:: Smoking status: Patient denies any tobacco usage or history of. Patient/guardian denies using alcohol. Screenin:45 [facility] ED Fall Risk Assessment (Adult) History of falling in the last 3 months, ko1 including since admission No falls in past 3 months (0 pts) Confusion or Disorientation No (0 pts) Intoxicated or Sedated No (0 pts) Impaired Gait No (0 pts) Mobility Assist Device Used No (0 pt) Altered Elimination No (0 pt) Score/Fall Risk Level 0 - 2 = Low Risk Oriented to surroundings, Maintained a safe environment, Educated pt \T\ family on fall prevention, incl call for assistance when getting out of bed, Assessed \T\ reinforced patient's understanding of fall precautions, Provided non-skid footwear, Hourly rounding (assess needs \T\ fall precautionary measures) done, Used ambulatory aids as needed (educated on \T\ assisted with), Used gait belt as appropriate. Abuse screen: Denies threats or abuse. Denies injuries from another. Nutritional screening: No deficits noted. Tuberculosis screening: No symptoms or risk factors identified. Assessment: 09:45 General: Appears in no apparent distress. comfortable, Behavior is calm, cooperative, ko1 appropriate for age. Pain: Denies pain. Neuro: No deficits noted. Cardiovascular: Reports high blood pressure. Respiratory: No deficits noted. GI: No deficits noted. : No deficits noted. EENT: No deficits noted. Derm: No deficits noted. Musculoskeletal: No deficits noted. Vital Signs: 09:30 BP 208 / 92; Pulse 72; Resp 18; Temp 98.2(O); Pulse Ox 93% on R/A; Weight 77.11 kg; ld1 Height 5 ft. 2 in. (157.48 cm); Pain 0/10; 09:53 BP 217 / 96; Pulse 72; Resp 18; Pulse Ox 96% on R/A; Pain 0/10; ko1 10:01 BP 178 / 79; Pulse 75; Pulse Ox 97% ; ko1 10:08 BP 163 / 72; Pulse 77; Pulse Ox 95% ; ko1 10:52 BP 157 / 71; Pulse 70; Resp 15; Pulse Ox 96% ; jl7 09:30 Body Mass Index 31.09 (77.11 kg, 157.48 cm) ld1 ED Course: 09:19 Patient arrived in ED. mr 09:20 Chelsie Trejo is Private Physician. mr 09:26 Ashwin Hernandez PA is PHCP. jmm 09:26 Wilman Diaz DO is Attending Physician. jmm 09:30 Arm band placed on right wrist. ld1 09:32 Triage completed. ld1 09:38 Karon Da Silva, YELENA is Primary Nurse. ko1 09:45 Patient has correct armband on for positive identification. Bed in low position. Call ko1 light in reach. Side rails up X 1. Client placed on continuous cardiac and pulse oximetry monitoring. NIBP monitoring applied. monitoring and evaluation advisor on. 09:45 Inserted saline lock: 20 gauge in right antecubital area, using aseptic technique. ko1 Blood collected. 09:53 Troponin High Sensitivity Sent. ko1 09:53 BMP Sent. ko1 09:53 CBC with Diff Sent. ko1 09:[address] via wheelchair. ko1 09:55 Initial lab(s) drawn, by co, sent to lab. ko1 09:57 CT Head Brain wo Cont In Process Unspecified. EDMS 09:58 Patient moved back from [address]. ko1 10:51 No provider procedures requiring assistance completed. IV discontinued, intact, jl7 bleeding controlled, No redness/swelling at site. Pressure dressing applied. Administered Medications: 09:53 Drug: hydrALAZINE 10 mg Route: IVP; Site: right antecubital; ko1 10:52 Follow up: Response: No adverse reaction; Blood pressure is lowered jl7 Medication: 10:47 VIS not applicable for this client. jl7 Outcome: 10:42 Discharge ordered by . michael 10:52 Discharged to home ambulatory. jl7 10:52 Condition: stable 10:52 Discharge instructions given to patient, family, Instructed on discharge instructions, follow up and referral plans. medication usage, Demonstrated understanding of instructions, follow-up care, medications, Prescriptions given X 1. 10:53 Patient left the ED. jl7 Signatures: Dispatcher [employer] EDMS Ashwin Hernandez PA PA jmm Rivera, Mary FranciscoMiquel RN RN jl7 Linda Car RN RN ld1 Avinash, Karon, RN RN ko1
[2022-04-22 11:06] VITALS: TEMP 98.2
[2022-04-22 11:10] VITALS: BP 157/71; O2SAT 96
== END 2022-04-22 10:53 | disposition home or self-care (01) ==
LOC: ER 09:16
DX: I10 Essential (primary) hypertension (principal)
CPT/HCPCS: 85025; 80048; 36415; 84484; 70450; J0360; 93005

== ENCOUNTER 2022-04-25 07:58 | Emergency (ER) | payer OTHER ==
--- OUTSIDE RECORDS SUMMARY | 2022-04-25 08:07 | XMS REPORT | Continuity of Care Document ---
:1950 Author Organization [facility] t Address [address] [place] [address] Care Team Providers Name Role Phone Lauryn Arora Primary Care Physician Chelsie De Jesus Attending Clinician Unavailable BENNY DING Attending Clinician Unavailable BENNY DING Attending Clinician Unavailable Benny Ding DO Attending Clinician Jeaneth Hazel Attending Clinician Team, [facility] Attending Clinician UnavailMARSHA Miranda Attending Clinician Unavailable Doctor Unassigned, [place] Attending Clinician Unavailable Jeannie Wood Attending Clinician [phone] Rehab, [facility] Cardiac Attending Clinician Unavailable Marsha Reis MD Attending Clinician Lauryn Arora Attending Clinician Jaja Harman Attending Clinician Pob, [facility] Lab Main Attending Clinician Unavailable Ozzie Munoz MD Attending Clinician OZZIE MUNOZ Attending Clinician Unavailable 2, [facility] Lab Attending Clinician Unavailable Jessika ROBLES, Mac Marie Attending Clinician MAC ELDRIDGE Attending Clinician Unavailable LINO ARAUJO Attending Clinician Unavailable Ella ROBLES, Lino Attending Clinician Fabio KIRK, Greg [...] Fields Attending Clinician Unavailable Chinyere ROBLES, Essence Baldwin Attending Clinician Dunia White MD Attending Clinician Cindi ROBLES, Long [place] Attending Clinician Chalo Abdalla MD Attending Clinician Mik Mcnulty Attending Clinician Therapist, [facility] Respiratory Attending Clinician Unavailable Freddie Hargrove MD Attending Clinician FREDDIE HARGROVE Attending Clinician Unavailable LAURYN GOLDSMITH Attending Clinician Unavailable Leeroy ROBLES, Sendil K.H. Attending Clinician ESSENCE WHITLOCK Attending Clinician Unavailable Malvin Borrego MD Attending Clinician COEDY ALVAREZ Attending Clinician Unavailable CODEY ALVAREZ Attending Clinician Unavailable Radha Lacey Attending Clinician Lab, Ang - Db Attending Clinician Unavailable RADHA RGAHAM Attending Clinician Unavailable LORAINE SANDOVAL Attending Clinician Unavailable EbLoraine Velazquez Attending Clinician [...] Expiration Date S adrian MEDICARE PART A [id number] 2015 \T\ B 00:00:00 FOR LIFE [id number] 2020 00:00:00 FOR LIFE [id number] 2019 00:00:00 Problems Condition Condition Condition Status [...] Branch bypass bypass graft of graft of [place] heart heart COPD COPD Disease Active Univers [...] Added automatic ally from request for surgery [id number] Esophageal Esophageal Disease Active U nivers reflux reflux 2-07 ity of 00:00: [place] 00 Medical Branch History of History of Disease Active U nivers AL AL 2-07 ity of (myocardia (myocardia 00:00: Te [...] Univers cancer cancer 3- ity of 00:00: [place] [facility] Class 1 Class 1 Disease Active Univers obesity obesity 309 ity of due to due to 00:00: [place] excess excess 00 Medical calories calories Branch with with serious serious comorbidit comorbidit y and body y and body mass index mass index (BMI) of (BMI) of 32.0 to 32.0 to 32.9 in 32.9 in adult adult [id number] Coronary Problem Comm on artery Spirit disease - [facility] involving [facility] coronary Medical artery of Center [place] heart without angina pectoris [id number] Neuropathy Problem Co mmon Spirit - 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 [id number] Erectile Problem Comm on dysfunctio Spirit n due to - CHI diseases [facility] [id number] Gastroesop Problem Co mmon hageal Spirit reflux - CHI disease [facility] esophagiti Medica [facility] [id number] Pure Problem Common hyperchole Spirit sterolemia - [facility] [id number] Mixed Problem Common hyperlipid Spirit emia - [facility] Allergies, Adverse Reactions, Alerts Allergy Allergy Status [...] of tobacco Cigarette Smoker University of use [place] [facility] University o f Alcohol Frequency [place] [facility] History [facility] University o f Alcohol Binge [place] [facility] History [facility] o f Alcohol Comment [place] [facility] Exposure to 2022-02-07 2022-02-17 Not sure University SARS-CoV-2 (event) 00:00:00 10:10:00 [facility] Cigarettes smoked 2022-02-17 2022-02-17 Univers ity of current (pack per 00:00:00 00:00:00 [facility] edical ) - Reported Branch Cigarette 2022-02-17 2022-02-17 University of pack-years 00:00:00 00:00:00 [facility] Tobacco use and 2021-06-13 2021-06-13 Never used CHRISTINA Kate exposure 00:00:00 00:00:00 [facility] Alcohol intake 2021-06-13 2021-06-13 Current drinker [facility]STINA [facility] 00:00:00 00:00:00 of alcohol Medical [place] (finding) History SDOH 2019-02-02 2019-02-02 2 University o f Alcohol Std Drinks 00:00:00 00:00:00 [facility] Sex Ass[birth year] At [birth year] CHRISTINA Kate 00:00:00 00:00:00 [facility] Smoking Status Start Date Stop Date Source Former smoker 2021-06-13 00:00:00 2021-06-13 00:00:00 [facility] Medications Ordered Filled Start Stop Current Ordering Indication Dosage Frequency Signature Comments Components Source Medication Medication Date Date Medication? Clinician (SIG) Name Name Pregabalin Pregabalin No 1{capsu BID Pregabalin 50 MG 50 MG 2-07 le} 50 MG 00:00: 00 Pregabalin Pregabalin 2022-0 No 1{capsu BID Pregabalin 50 MG 50 MG 2-07 le} 50 MG 00:00: 00 Bupivicaine Bupivicaine 2021-03 No 2.5mg Common Rough And Ready Rough And Ready 1-10 Spirit 00:00: - [facility] Bupivicaine Bupivicaine 2021-03 No 2.5mg Common Rough And Ready Rough And Ready 1-10 Spirit 00:00: - [facility] Kenalog Kenalog 2021-03 No 40mg Common (Triamcinol (Triamcinol 1-10 S pirit one) one) 00:00: - [facility] Kenalog Kenalog 2021-03 No 40mg Common (Triamcinol (Triamcinol 1-10 S pirit one) one) 00:00: - [facility] Bupivicaine Bupivicaine 2021-03 No 2.5mg Common Rough And Ready Rough And Ready 1-10 Spirit 00:00: - CHI 00 [facility] Bupivicaine Bupivicaine 2021- No 2.5mg Common Rough And Ready Rough And Ready 1-10 Spirit 00:00: - CHI 00 [facility] Mauricealog Kenalog 2021-03 No 40mg Common (Triamcinol (Triamcinol 1-10 S pirit one) one) 00:00: - CHI 00 [facility] Leslie Kenalog 2021-03 No 40mg Common (Triamcinol (Triamcinol 1-10 S pirit one) one) 00:00: - CHI 00 [facility] Bupivicaine Bupivicaine 2021-03 No 2.5mg Common Rough And Ready Rough And Ready 1-10 Spirit 00:00: - CHI 00 [facility] Bupivicaine Bupivicaine 2021-03 No 2.5mg Common Rough And Ready Rough And Ready 1-10 Spirit 00:00: - CHI 00 [facility] Leslie Kenalog 2021-03 No 40mg Common (Triamcinol (Triamcinol 1-10 S pirit one) one) 00:00: - CHI 00 [facility] Leslie Kenalog 2021-03 No 40mg Common (Triamcinol (Triamcinol 1-10 S pirit one) one) 00:00: - CHI 00 [facility] Bupivicaine Bupivicaine 2021-03 No 2.5mg Common Rough And Ready Rough And Ready 1-10 Spirit 00:00: - CHI 00 [facility] Bupivicaine Bupivicaine 2021-03 No 2.5mg Common Rough And Ready Rough And Ready 1-10 Spirit 00:00: - CHI 00 [facility] Kenyoni Kenalog 2021-03 No 40mg Common (Triamcinol (Triamcinol 1-10 S pirit one) one) 00:00: - CHI 00 [facility] Leslie Kenalog 2021-03 No 40mg Common (Triamcinol (Triamcinol 1-10 S pirit one) one) 00:00: - CHI 00 [facility] Bupivicaine Bupivicaine 2021-03 No 2.5mg Common Rough And Ready Rough And Ready 1-10 Spirit 00:00: - CHI 00 [facility] Bupivicaine Bupivicaine 2021-03 No 2.5mg Common Rough And Ready Rough And Ready 1-10 Spirit 00:00: - CHI 00 [facility] Leslie Nelson 2021-03 No 40mg Common (Triamcinol (Triamcinol 1-10 S pirit one) one) 00:00: - CHI 00 [facility] Leslie Nelson 2021-03 No 40mg Common (Triamcinol (Triamcinol 1-10 S pirit one) one) 00:00: - CHI 00 [facility] Bupivicaine Bupivicaine 2021-03 No 2.5mg Common Rough And Ready Rough And Ready 1-10 Spirit 00:00: - CHI 00 [facility] Bupivicaine Bupivicaine 2021- No 2.5mg Common Rough And Ready Rough And Ready 1-10 Spirit 00:00: - CHI 00 [facility] Leslie Nelson 2021-03 No 40mg Common (Triamcinol (Triamcinol 1-10 S pirit one) one) 00:00: - CHI 00 [facility] Leslie Nelson 2021-03 No 40mg Common (Triamcinol (Triamcinol 1-10 S pirit one) one) 00:00: - CHI 00 [facility] Pregabalin Pregabalin 2021-0 No 1{capsu BID Pregabalin [...] 50 MG 00:00: 00 budesonide 2021-0 Yes [id number] Inhale 2 Univers 0.5 mg/2 mL 7-06 mL 2 (two) it y of nebulizer 00:00: times [address] budesonide 2021-0 Yes [id number] Inhale 2 Univers 0.5 mg/2 mL 7-06 mL 2 (two) it y of nebulizer 00:00: times [place] solution 00 daily Medical Branch budesonide 2021-0 Yes [id number] Inhale 2 Univers 0.5 mg/2 mL 7-06 mL 2 (two) it y of nebulizer 00:00: times [place] solution 00 daily Medical Branch budesonide 2021-0 Yes [id number] Inhale 2 Univers 0.5 mg/2 mL 7-06 mL 2 (two) it y of nebulizer 00:00: times [place] solution 00 daily Medical Branch budesonide 2021-0 Yes [id number] Inhale 2 Univers 0.5 mg/2 mL 7-06 mL 2 (two) it y of nebulizer 00:00: times [place] solution 00 daily Medical Branch budesonide 2021-0 Yes [id number] Inhale 2 Univers 0.5 mg/2 mL 7-06 mL 2 (two) it y of nebulizer 00:00: times [place] solution 00 daily Medical Branch METOPROLOL 2021-0 Yes [id number] TAKE Un nancy TARTRATE 25 7-05 ONE-HALF ity of mg tablet 00:00: (03/17) [place] 00 TABLET Medical EVERY 12 Branch HOURS METOPROLOL 2022-0 Yes [id number] TAKE Un nancy TARTRATE 25 7-05 ONE-HALF ity of mg tablet 00:00: (03/17) [place] 00 TABLET Medical EVERY 12 Branch HOURS METOPROLOL 2022-0 Yes [id number] TAKE Un nancy TARTRATE 25 7-05 ONE-HALF ity of mg tablet 00:00: (03/17) [place] 00 TABLET Medical EVERY 12 Branch HOURS METOPROLOL 2022-0 Yes [id number] TAKE Un nancy TARTRATE 25 7-05 ONE-HALF ity of mg tablet 00:00: (03/17) [place] 00 TABLET Medical EVERY 12 Branch HOURS METOPROLOL 2022-0 Yes [id number] TAKE Un nancy TARTRATE 25 7-05 ONE-HALF ity of mg tablet 00:00: (03/17) [place] 00 TABLET Medical EVERY 12 Branch HOURS METOPROLOL 2022-0 Yes [id number] TAKE Un nancy TARTRATE 25 7-05 ONE-HALF ity of mg tablet 00:00: (03/17) TABLET Medical EVERY 12 Branch HOURS METOPROLOL 2-0 Yes [id number] TAKE Un nancy TARTRATE 25 7-05 ONE-HALF ity of mg tablet 00:00: (03/17) [place] TABLET Medical EVERY 12 Branch HOURS ASPIRIN LOW 2022-0 Yes Take by Uni vers DOSE ORAL 6-03 mouth. ity of 13:46: [address] ASPIRIN LOW 2022-0 Yes Take by Uni vers DOSE ORAL 6-03 mouth. ity of 13:46: [address] ASPIRIN LOW 2022-0 Yes Take by Uni vers DOSE ORAL 6-03 mouth. ity of 13:46: [address] ASPIRIN LOW 2022-0 Yes Take by Uni vers DOSE ORAL 6-03 mouth. ity of 13:46: [address] ASPIRIN LOW 2022-0 Yes Take by Uni vers DOSE ORAL 6-03 mouth. ity of 13:46: [address] ASPIRIN LOW 2022-0 Yes Take by Uni vers DOSE ORAL 6-03 mouth. ity of 13:46: [address] ASPIRIN LOW 2022-0 Yes Take by Uni vers DOSE ORAL 6-03 mouth. ity of 13:46: [address] ASPIRIN LOW 2022-0 Yes Take by Uni vers DOSE ORAL 6-03 mouth. ity of 13:46: [address] mepolizumab 2-0 Yes [id number] 100mg inject 1 Univers (NUCALA) 6-03 Pen under ity of 100 mg/mL [place]: [place] every 4 Medical (four) Branch weeks. mepolizumab 2022-0 Yes [id number] 100mg inject 1 Univers (NUCALA) 6-03 Pen under ity of 100 mg/mL 00:00: [place] 00 every 4 Medical (four) Branch weeks. mepolizumab 2022-0 Yes [id number] 100mg inject 1 Univers (NUCALA) 6-03 Pen under ity of 100 mg/mL 00:00: [place] 00 every 4 Medical (four) Branch weeks. mepolizumab 2022-0 Yes [id number] 100mg inject 1 Univers (NUCALA) 6-03 Pen under ity of 100 mg/mL 00:00: [place] 00 every 4 Medical (four) Branch weeks. mepolizumab 2022-0 Yes [id number] 100mg inject 1 Univers (NUCALA) 6-03 Pen under ity of 100 mg/mL 00:00: [place] 00 every 4 Medical (four) Branch weeks. mepolizumab 2022-0 Yes [id number] 100mg inject 1 Univers (NUCALA) 6-03 Pen under ity of 100 mg/mL 00:00: [place] 00 every 4 Medical (four) Branch weeks. mepolizumab 2022-0 Yes [id number] 100mg inject 1 Univers (NUCALA) 6-03 Pen under ity of 100 mg/mL 00:00: [place] 00 every 4 Medical (four) Branch weeks. mepolizumab 2-0 Yes [id number] 100mg inject 1 Univers (NUCALA) 6-03 Pen under ity of 100 mg/mL 00:00: [place] At[place] 00 every 4 Medical (four) Branch weeks. tiotropium 0 Yes [id number] 18ug Inhale 1 Univers 18 mcg 4-29 capsule ity of inhalation 00:00: daily. [address] tiotropium 2021-0 Yes [id number] 18ug Inhale 1 Univers 18 mcg 4-29 capsule ity of inhalation 00:00: daily. [address] tiotropium 2021-0 Yes [id number] 18ug Inhale 1 Univers 18 mcg 4-29 capsule ity of inhalation 00:00: daily. [address] tiotropium 2021-0 Yes [id number] 18ug Inhale 1 Univers 18 mcg 4-29 capsule ity of inhalation 00:00: daily. [address] tiotropium 2021-0 Yes [id number] 18ug Inhale 1 Univers 18 mcg 4-29 capsule ity of inhalation 00:00: daily. [address] tiotropium 2021-0 Yes [id number] 18ug Inhale 1 Univers 18 mcg 4-29 capsule ity of inhalation 00:00: daily. [address] tiotropium 2021-0 Yes [id number] 18ug Inhale 1 Univers 18 mcg 4-29 capsule ity of inhalation 00:00: daily. [place] 00 Medical Branch tiotropium 2021-0 Yes [id number] 18ug Inhale 1 Univers 18 mcg 4-29 capsule ity of inhalation 00:00: daily. [place] [facility] metoprolol 2021-0 Yes [id number] 12.5mg Take 0.5 Univers tartrate 25 4-21 tablets by it y of mg tablet 00:00: mouth [place] 00 every 12 Medical (twelve) Branch hours. metoprolol 2021-2021- No [id number] 12.5mg Take 0.5 Univers tartrate 25 4-21 [...] 4-19 le} 50 MG 00:00: 00 predniSONE 2021-0 Yes [id number] 15mg Take 3 Univers 5 mg tablet 4-01 tablets by it y of 00:00: mouth [place] 00 daily. Medical Branch budesonide 2021-0 Yes [id number] .5mg Inhale 2 Univers (PULMICORT) 4-01 mL 2 (two) it y of 0.5 mg/2 mL 00:00: times [place] nebulizer 00 daily. Medical solution Branch arformotero 2021-0 Yes [id number] 15ug Use 2 mL Univers L (BROVANA) 4-01 as ity of 15 mcg/2 mL 00:00: directed 2 [place] nebulizer 00 (two) Medical solution times Branch daily. predniSONE 2021-0 Yes [id number] 15mg Take 3 Univers 5 mg tablet 4-01 tablets by it y of 00:00: mouth [place] 00 daily. Medical Branch budesonide 2021-0 Yes [id number] .5mg Inhale 2 Univers (PULMICORT) 4-01 mL 2 (two) it y of 0.5 mg/2 mL 00:00: times [place] nebulizer 00 daily. Medical solution Branch arformotero 2021-0 Yes [id number] 15ug Use 2 mL Univers L (BROVANA) 4-01 as ity of 15 mcg/2 mL 00:00: directed 2 [place] nebulizer 00 (two) Medical solution times Branch daily. predniSONE 2021-0 Yes [id number] 15mg Take 3 Univers 5 mg tablet 4-01 tablets by it y of 00:00: mouth [place] 00 daily. Medical Branch arformotero 2021-0 Yes [id number] 15ug Use 2 mL Univers L (BROVANA) 4-01 as ity of 15 mcg/2 mL 00:00: directed 2 [place] nebulizer 00 (two) Medical solution times Branch daily. predniSONE 2021-0 Yes [id number] 15mg Take 3 Univers 5 mg tablet 4-01 tablets by it y of 00:00: mouth [place] 00 daily. Medical Branch arformotero 2021-0 Yes [id number] 15ug Use 2 mL Univers L (BROVANA) 4-01 as ity of 15 mcg/2 mL 00:00: directed 2 [place] nebulizer 00 (two) Medical solution times Branch daily. predniSONE 2021-0 Yes [id number] 15mg Take 3 Univers 5 mg tablet 4-01 tablets by it y of 00:00: mouth [place] 00 daily. Medical Branch arformotero 2021-0 Yes [id number] 15ug Use 2 mL Univers L (BROVANA) 4-01 as ity of 15 mcg/2 mL 00:00: directed 2 [place] nebulizer 00 (two) Medical solution times Branch daily. predniSONE 2021-0 Yes [id number] 15mg Take 3 Univers 5 mg tablet 4-01 tablets by it y of 00:00: mouth [place] 00 daily. Medical Branch arformotero 2021-0 Yes [id number] 15ug Use 2 mL Univers L (BROVANA) 4-01 as ity of 15 mcg/2 mL 00:00: directed 2 [place] nebulizer 00 (two) Medical solution times Branch daily. predniSONE Yes [id number] 15mg Take 3 Univers 5 mg tablet 4- tablets by it y of 00:00: mouth [place] 00 daily. Medical Branch arformotero Yes [id number] 15ug Use 2 mL Univers L (BROVANA) 4- as ity of 15 mcg/2 mL 00:00: directed 2 [place] nebulizer 00 (two) Medical solution times Branch daily. predniSONE Yes [id number] 15mg Take 3 Univers 5 mg tablet 4-01 tablets by it y of 00:00: mouth [place] 00 daily. Medical Branch arformotero Yes [id number] 15ug Use 2 mL Univers L (BROVANA) 4-01 as ity of 15 mcg/2 mL 00:00: directed 2 [place] nebulizer 00 (two) Medical solution times Branch daily. budesonide 2021- No [id number] .5mg Inhale 2 Univers (PULMICORT) 4- 07-06 mL 2 (two) i ty of 0.5 mg/2 mL 00:00: 00:00 [place] nebulizer 00 :00 daily. Medical solution Branch atorvastati Yes 40mg QD Take [address] [facility] (LIPITOR) 3-31 by mouth Luke s 40 MG 13:34: daily. Medical tablet 38 Center pantoprazol Yes 40mg QD Take [address] [facility] 3-31 by mouth [facility] (PROTONIX) 13:34: daily. Medic al 40 MG 38 Center tablet furosemide Yes 20mg QD Take [address] (LASIX) 20 3-31 by mouth [facility] MG tablet 13:34: daily. Medica l 38 Center metoprolol 0 Yes 12.5mg Q.5D Take 12.[address] tartrate 3-31 mg by [facility] (LOPRESSOR) 13:34: mouth 2 Med ical 25 MG 38 (two) Center tablet times daily. atorvastati Yes 40mg QD Take [address] [facility] (LIPITOR) 3-31 by mouth Luke s 40 MG 13:34: daily. Medical tablet 38 Center pantoprazol 2021-0 Yes 40mg QD Take [address] [facility] 3-31 by mouth [facility] (PROTONIX) 13:34: daily. Medic al 40 MG 38 Center tablet tiotropium 2021-0 Yes 18ug QD Inhale [address] (SPIRIVA) 3-31 mcg by [facility] 18 mcg 13:34: mouth via Medica l inhalation 38 inhaler Center capsule daily. spironolact 202-0 Yes 50mg QD Take [address] one 3-31 by mouth [facility] (ALDACTONE) 13:34: daily. Medi aashish 50 MG 38 Center tablet predniSONE 2021-0 Yes 20mg QD Take [address] (DELTASONE) 3-31 by mouth Luke s 20 MG 13:34: daily Medical tablet 38 Patient Center has been on brief course and last dose today . tiotropium 2021-0 Yes 18ug QD Inhale [address] (SPIRIVA) 3-31 mcg by [facility] 18 mcg 13:34: mouth via Medica l inhalation 38 inhaler Center capsule daily. spironolact 2021-0 Yes 50mg QD Take [address] one 3-31 by mouth [facility] (ALDACTONE) 13:34: daily. Medi aashish 50 MG 38 Center tablet predniSONE 2021-0 Yes 20mg QD Take [address] (DELTASONE) 3-31 by mouth Luke s 20 MG 13:34: daily Medical tablet 38 Patient Center has been on brief course and last dose today . furosemide 2021-0 Yes 20mg QD Take [address] (LASIX) 20 3-31 by mouth [facility] MG tablet 13:34: daily. Medica l 38 Center metoprolol 2021-0 Yes 12.5mg Q.5D Take 12.[address] tartrate 3-31 mg by [facility] (LOPRESSOR) 13:34: mouth 2 Med ical 25 MG 38 (two) Center tablet times daily. pregabalin 2022-0 Yes 50mg Q.5D Take [address] (LYRICA) 50 3-31 by mouth 2 Rosemarie kes MG capsule 13:34: (two) Medica l 37 times Center daily. clopidogreL 2022-0 Yes 75mg QD Take [address] (PLAVIX) 75 3-31 by mouth Luke s mg tablet 13:34: daily. [address] aspirin 81 0 Yes 81mg QD Take [address] MG chewable 3-31 by mouth Luke s tablet 13:34: daily. [address] pregabalin 0 Yes 50mg Q.5D Take [address] (LYRICA) 50 3-31 by mouth 2 Rosemarie kes MG capsule 13:34: (two) [address] daily. clopidogreL 0 Yes 75mg QD Take [address] (PLAVIX) 75 3-31 by mouth Luke s mg tablet 13:34: daily. [address] aspirin 81 0 Yes 81mg QD Take [address] MG chewable 3-31 by mouth Luke s tablet 13:34: daily. [address] SPIRONOLACT 0 Yes [id number] TAKE 1 Univers ONE 25 mg 3-24 TABLET BY ity o f tablet 00:00: MOUTH [place] 00 EVERY DAY Medical Branch SPIRONOLACT 2021-0 Yes [id number] TAKE 1 Univers ONE 25 mg 3-24 TABLET BY ity o f tablet 00:00: MOUTH [place] 00 EVERY DAY Medical Branch SPIRONOLACT 2021-0 Yes [id number] TAKE 1 Univers ONE 25 mg 3-24 TABLET BY ity o f tablet 00:00: MOUTH [place] 00 EVERY DAY Medical Branch SPIRONOLACT 2021-0 Yes [id number] TAKE 1 Univers ONE 25 mg 3-24 TABLET BY ity o f tablet 00:00: MOUTH [place] 00 EVERY DAY Medical Branch SPIRONOLACT 2021-0 Yes [id number] TAKE 1 Univers ONE 25 mg 3-24 TABLET BY ity o f tablet 00:00: MOUTH [place] 00 EVERY DAY Medical Branch SPIRONOLACT 2021-0 Yes [id number] TAKE 1 Univers ONE 25 mg 3-24 TABLET BY ity o f tablet 00:00: MOUTH [place] 00 EVERY DAY Medical Branch SPIRONOLACT 2021-0 Yes [id number] TAKE 1 Univers ONE 25 mg 3-24 TABLET BY ity o f tablet 00:00: MOUTH [place] 00 EVERY DAY Medical Branch SPIRONOLACT 2021-0 Yes [id number] TAKE 1 Univers ONE 25 mg 3-24 TABLET BY ity o f tablet 00:00: MOUTH [place] 00 EVERY DAY Medical Branch furosemide 2021-0 Yes [id number] 40mg Take 1 Univers 40 mg 3-10 tablet by ity of tablet 00:00: mouth [place] 00 daily. Medical Branch furosemide 2021-0 Yes [id number] 40mg Take 1 Univers 40 mg 3-10 tablet by ity of tablet 00:00: mouth [place] 00 daily. Medical Branch furosemide 2021-0 Yes [id number] 40mg Take 1 Univers 40 mg 3-10 tablet by ity of tablet 00:00: mouth [place] 00 daily. Medical Branch furosemide 2021-0 Yes [id number] 40mg Take 1 Univers 40 mg 3-10 tablet by ity of tablet 00:00: mouth [place] 00 daily. Medical Branch furosemide 2021-0 Yes [id number] 40mg Take 1 Univers 40 mg 3-10 tablet by ity of tablet 00:00: mouth [place] 00 daily. Medical Branch furosemide 2021-0 Yes [id number] 40mg Take 1 Univers 40 mg 3-10 tablet by ity of tablet 00:00: mouth [place] 00 daily. Medical Branch furosemide 2021-0 Yes [id number] 40mg Take 1 Univers 40 mg 3-10 tablet by ity of tablet 00:00: mouth [place] 00 daily. Medical Branch furosemide 2021-0 Yes [id number] 40mg Take 1 Univers 40 mg 3-10 tablet by ity of tablet 00:00: mouth [place] 00 daily. Medical Branch urea 20 % 0 Yes [id number] Apply to Univers cream 3-09 area(s) as ity of 00:00: needed for [place] 00 Itching. Medical Branch pantoprazol 2021-0 Yes [id number] 40mg Take 1 Univers e 40 mg EC 3-09 tablet by ity of tablet 00:00: mouth [place] 00 daily. Medical Branch clopidogreL 2021-0 Yes [id number] 75mg Take 1 Univers 75 mg 3-09 tablet by ity of tablet 00:00: mouth [place] 00 daily. Medical Branch urea 20 % 2021-0 Yes [id number] Apply to Univers cream 3-09 area(s) as ity of 00:00: needed for [place] Itching. Medical Branch pantoprazol 2021-0 Yes [id number] 40mg Take 1 Univers e 40 mg EC 3-09 tablet by ity of tablet 00:00: mouth [place] 00 daily. Medical Branch clopidogreL 2021-0 Yes [id number] 75mg Take 1 Univers 75 mg 3-09 tablet by ity of tablet 00:00: mouth [place] 00 daily. Medical Branch urea 20 % 2021-0 Yes [id number] Apply to Univers cream 3-09 area(s) as ity of 00:00: needed for [place] 00 Itching. Medical Branch pantoprazol 2021-0 Yes [id number] 40mg Take 1 Univers e 40 mg EC 3-09 tablet by ity of tablet 00:00: mouth [place] 00 daily. Medical Branch clopidogreL 2021-0 Yes [id number] 75mg Take 1 Univers 75 mg 3-09 tablet by ity of tablet 00:00: mouth [place] 00 daily. Medical Branch urea 20 % 2021-0 Yes [id number] Apply to Univers cream 3-09 area(s) as ity of 00:00: needed for [place] 00 Itching. Medical Branch pantoprazol 2021-0 Yes [id number] 40mg Take 1 Univers e 40 mg EC 3-09 tablet by ity of tablet 00:00: mouth [place] 00 daily. Medical Branch clopidogreL 2021-0 Yes [id number] 75mg Take 1 Univers 75 mg 3-09 tablet by ity of tablet 00:00: mouth [place] 00 daily. Medical Branch urea 20 % 2021-0 Yes [id number] Apply to Univers cream 3-09 area(s) as ity of 00:00: needed for [place] Itching. Medical Branch pantoprazol 2021-0 Yes [id number] 40mg Take 1 [facility] e 40 mg EC 3-09 tablet by ity of tablet 00:00: mouth [place] 00 daily. [facility] clopidogreL 2021-0 Yes [id number] 75mg Take 1 [facility] 75 mg 3-09 tablet by ity of tablet 00:00: mouth [place] 00 daily. [facility] urea 20 % 2021-0 Yes [id number] Apply to [facility] cream 3-09 area(s) as ity of 00:00: needed for [place] 00 Itching. Medical Branch pantoprazol 2021-0 Yes [id number] 40mg Take 1 [facility] e 40 mg EC 3-09 tablet by ity of tablet 00:00: mouth [place] 00 daily. [facility] clopidogreL 2021-0 Yes [id number] 75mg Take 1 [facility] 75 mg 3-09 tablet by ity of tablet 00:00: mouth [place] 00 daily. [facility] urea 20 % 2021-0 Yes [id number] Apply to [facility] cream 3-09 area(s) as ity of 00:00: needed for Itching. Medical Branch pantoprazol Yes [id number] 40mg Take 1 [facility] e 40 mg EC 3-09 tablet by ity of tablet 00:00: mouth [place] 00 daily. [facility] clopidogreL 0 Yes [id number] 75mg Take 1 [facility] 75 mg 3-09 tablet by ity of tablet 00:00: mouth 00 daily. Medical Branch urea 20 % 0 Yes [id number] Apply to [facility] cream 3-09 area(s) as ity of 00:00: needed for Itching. Medical Branch pantoprazol Yes [id number] 40mg Take 1 [facility] e 40 mg EC 3-09 tablet by ity of tablet 00:00: mouth 00 daily. Medical Branch clopidogreL 0 Yes [id number] 75mg Take 1 [facility] 75 mg 3-09 tablet by ity of tablet 00:00: mouth 00 daily. Medical Branch simethicone 0 Yes [id number] 125mg Take 1 [facility] 125 mg 2-14 tablet by ity of chewable 00:00: mouth 3 [place] tablet 00 (three) Medical times Branch daily with meals as needed for Gas. polyethylen 2021-0 Yes [id number] 17g Take 1 [facility] e glycol 2-14 Packet by ity of 3350 17 00:00: mouth 2 [place] gram powder 00 (two) Medical times Branch daily as needed for Constipati on. simethicone 2021-0 Yes [id number] 125mg Take 1 [facility] 125 mg 2-14 tablet by ity of chewable 00:00: mouth 3 [place] tablet 00 (three) Medical times Branch daily with meals as needed for Gas. polyethylen 2021-0 Yes [id number] 17g Take 1 [facility] e glycol 2-14 Packet by ity of 3350 17 00:00: mouth 2 [place] gram powder 00 (two) Medical times Branch daily as needed for Constipati on. simethicone 2021-0 Yes [id number] 125mg Take 1 [facility] 125 mg 2-14 tablet by ity of chewable 00:00: mouth 3 [place] tablet 00 (three) Medical times Branch daily with meals as needed for Gas. polyethylen 2021-0 Yes [id number] 17g Take 1 [facility] e glycol 2-14 Packet by ity of 3350 17 00:00: mouth 2 [place] gram powder 00 (two) Medical times Branch daily as needed for Constipati on. simethicone 2022-0 Yes [id number] 125mg Take 1 [facility] 125 mg 2-14 tablet by ity of chewable 00:00: mouth 3 [place] tablet 00 (three) Medical times Branch daily with meals as needed for Gas. polyethylen 2022-0 Yes [id number] 17g Take 1 [facility] e glycol 2-14 Packet by ity of 3350 17 00:00: mouth 2 [place] gram powder 00 (two) Medical times Branch daily as needed for Constipati on. simethicone 2-0 Yes [id number] 125mg Take 1 [facility] 125 mg 2-14 tablet by ity of chewable 00:00: mouth 3 [place] tablet 00 (three) Medical times Branch daily with meals as needed for Gas. polyethylen 2022-0 Yes [id number] 17g Take 1 [facility] e glycol 2-14 Packet by ity of 3350 17 00:00: mouth 2 [place] gram powder 00 (two) Medical times Branch daily as needed for Constipati on. simethicone 2-0 Yes [id number] 125mg Take 1 [facility] 125 mg 2-14 tablet by ity of chewable 00:00: mouth 3 [place] tablet 00 (three) Medical times Branch daily with meals as needed for Gas. polyethylen 2-0 Yes [id number] 17g Take 1 [facility] e glycol 2-14 Packet by ity of 3350 17 00:00: mouth 2 [place] gram powder 00 (two) Medical times Branch daily as needed for Constipati on. simethicone 2-0 Yes [id number] 125mg Take 1 [facility] 125 mg 2-14 tablet by ity of chewable 00:00: mouth 3 [place] tablet 00 (three) Medical times Branch daily with meals as needed for Gas. polyethylen 2022-0 Yes [id number] 17g Take 1 [facility] e glycol 2-14 Packet by ity of 3350 17 00:00: mouth 2 [place] gram powder 00 (two) Medical times Branch daily as needed for Constipati on. simethicone 2022-0 Yes [id number] 125mg Take 1 [facility] 125 mg 2-14 tablet by ity of chewable 00:00: mouth 3 [place] tablet 00 (three) Medical times Branch daily with meals as needed for Gas. polyethylen 2022-0 Yes [id number] 17g Take 1 [facility] e glycol 2-14 Packet by ity of 3350 17 00:00: mouth 2 [place] gram powder 00 (two) Medical times Branch daily as needed for Constipati on. albuterol 2020-03 Yes [id number] 2{puff} Inhale 2 [facility] 90 2-17 Puffs ity of mcg/actuati 00:00: every 4 [place] as on inhaler 00 (four) Medical hours as Branch needed for Wheezing or Shortness of Breath. albuterol 2020-03 Yes [id number] 2{puff} Inhale 2 [facility] 90 2-17 Puffs ity of mcg/actuati 00:00: every 4 [place] as on inhaler 00 (four) Medical hours as Branch needed for Wheezing or Shortness of Breath. albuterol 2020-03 Yes [id number] 2{puff} Inhale 2 [facility] 90 2-17 Puffs ity of mcg/actuati 00:00: every 4 [place] as on inhaler 00 (four) Medical hours as Branch needed for Wheezing or Shortness of Breath. albuterol 2020-03 Yes [id number] 2{puff} Inhale 2 [facility] 90 2-17 Puffs ity of mcg/actuati 00:00: every 4 [place] as on inhaler 00 (four) Medical hours as Branch needed for Wheezing or Shortness of Breath. albuterol 2020-03 Yes [id number] 2{puff} Inhale 2 [facility] 90 2-17 Puffs ity of mcg/actuati 00:00: every 4 [place] as on inhaler 00 (four) Medical hours as Branch needed for Wheezing or Shortness of Breath. albuterol 2020-03 Yes [id number] 2{puff} Inhale 2 [facility] 90 2-17 Puffs ity of mcg/actuati 00:00: every 4 [place] as on inhaler 00 (four) Medical hours as Branch needed for Wheezing or Shortness of Breath. albuterol 2020-03 Yes [id number] 2{puff} Inhale 2 [facility] 90 2-17 Puffs ity of mcg/actuati 00:00: every 4 [place] as on inhaler 00 (four) Medical hours as Branch needed for Wheezing or Shortness of Breath. albuterol 2020-03 Yes [id number] 2{puff} Inhale 2 [facility] 90 2-17 Puffs ity of mcg/actuati 00:00: every 4 [place] as on inhaler 00 (four) Medical hours as Branch needed for Wheezing or Shortness of Breath. ipratropium 2020- Yes [id number] 3mL Inhale 3 Univers -albuteroL 2-06 mL every 6 ity of 0.5 mg-3 00:00: (six) [place] mg(2.5 mg 00 hours as Medica l base)/3 mL needed for Bra nch nebulizer Wheezing. solution ipratropium 2020- Yes [id number] 3mL Inhale 3 Univers -albuteroL 2-06 mL every 6 ity of 0.5 mg-3 00:00: (six) [place] mg(2.5 mg 00 hours as Medica l base)/3 mL needed for Bra nch nebulizer Wheezing. solution ipratropium 2020- Yes [id number] 3mL Inhale 3 Univers -albuteroL 2-06 mL every 6 ity of 0.5 mg-3 00:00: (six) [place] mg(2.5 mg 00 hours as Medica l base)/3 mL needed for Bra nch nebulizer Wheezing. solution ipratropium 2020- Yes [id number] 3mL Inhale 3 Univers -albuteroL 2-06 mL every 6 ity of 0.5 mg-3 00:00: (six) [place] mg(2.5 mg 00 hours as Medica l base)/3 mL needed for Bra nch nebulizer Wheezing. solution ipratropium 2020- Yes [id number] 3mL Inhale 3 Univers -albuteroL 2-06 mL every 6 ity of 0.5 mg-3 00:00: (six) [place] mg(2.5 mg 00 hours as Medica l base)/3 mL needed for Bra nch nebulizer Wheezing. solution ipratropium 2020- Yes [id number] 3mL Inhale 3 Univers -albuteroL 2-06 mL every 6 ity of 0.5 mg-3 00:00: (six) [place] mg(2.5 mg 00 hours as Medica l base)/3 mL needed for Bra nch nebulizer Wheezing. solution ipratropium 2020- Yes [id number] 3mL Inhale 3 Univers -albuteroL 2-06 mL every 6 ity of 0.5 mg-3 00:00: (six) [place] mg(2.5 mg 00 hours as Medica l base)/3 mL needed for Bra nch nebulizer Wheezing. solution ipratropium 2020-03 Yes [id number] 3mL Inhale 3 Univers -albuteroL 2-06 mL every 6 ity of 0.5 mg-3 00:00: (six) [place] mg(2.5 mg 00 hours as Medica l base)/3 mL needed for Bra nch nebulizer Wheezing. solution fluticasone Yes [id number] 2{spray Use 2 [facility] propionate 6-22 } Sprays in ity of 50 00:00: each [place] mcg/actuati 00 nostril Medic al on nasal daily. Branch spray fluticasone Yes [id number] 2{spray Use 2 [facility] propionate 6-22 } Sprays in ity of 50 00:00: each [place] mcg/actuati 00 nostril Medic al on nasal daily. Branch spray fluticasone Yes [id number] 2{spray Use 2 [facility] propionate 6-22 } Sprays in ity of 50 00:00: each [place] mcg/actuati 00 nostril Medic al on nasal daily. Branch spray fluticasone Yes [id number] 2{spray Use 2 [facility] propionate 6-22 } Sprays in ity of 50 00:00: each [place] mcg/actuati 00 nostril Medic al on nasal daily. Branch spray fluticasone Yes [id number] 2{spray Use 2 [facility] propionate 6-22 } Sprays in ity of 50 00:00: each [place] mcg/actuati 00 nostril Medic al on nasal daily. Branch spray fluticasone Yes [id number] 2{spray Use 2 [facility] propionate 6-22 } Sprays in ity of 50 00:00: each [place] mcg/actuati 00 nostril Medic al on nasal daily. Branch spray fluticasone Yes [id number] 2{spray Use 2 [facility] propionate 6-22 } Sprays in ity of 50 00:00: each [place] mcg/actuati 00 nostril Medic al on nasal daily. Branch spray fluticasone Yes [id number] 2{spray Use 2 [facility] propionate 6-22 } Sprays in ity of 50 00:00: each [facility]/actuati 00 nostril Medic al on nasal daily. Branch spray pregabalin 2020-1 Yes 50mg Take 50 mg U nivers 50 mg 2-02 by mouth 2 ity of capsule 00:00: (two) [place] 00 times Medical daily. Branch pregabalin 2020- Yes 50mg Take 50 mg U nivers 50 mg 2-02 by mouth 2 ity of capsule 00:00: (two) [place] 00 times Medical daily. Branch pregabalin 2020- Yes 50mg Take 50 mg U nivers 50 mg 2-02 by mouth 2 ity of capsule 00:00: (two) [place] 00 times Medical daily. Branch pregabalin 2020-1 Yes 50mg Take 50 mg U nivers 50 mg 2-02 by mouth 2 ity of capsule 00:00: (two) [place] 00 times Medical daily. Branch pregabalin 2020- Yes 50mg Take 50 mg U nivers 50 mg 2-02 by mouth 2 ity of capsule 00:00: (two) [place] 00 times Medical daily. Branch pregabalin 2020- Yes 50mg Take 50 mg U nivers 50 mg 2-02 by mouth 2 ity of capsule 00:00: (two) [place] 00 times Medical daily. Branch pregabalin 2020-1 Yes 50mg Take 50 mg U nivers 50 mg 2-02 by mouth 2 ity of capsule 00:00: (two) [place] 00 times Medical daily. Branch pregabalin 2020- Yes 50mg Take 50 mg U nivers 50 mg 2-02 by mouth 2 ity of capsule 00:00: (two) [place] 00 times Medical daily. Branch atorvastati 2019-1 Yes Univer s n 40 mg 0-10 ity of tablet 00:00: [place] 00 Medical Branch atorvastati 2019-1 Yes Univer s n 40 mg 0-10 ity of tablet 00:00: [place] 00 Medical Branch atorvastati 2019-1 Yes Univer s n 40 mg 0-10 ity of tablet 00:00: [place] 00 Medical Branch atorvastati 2019-1 Yes Univer s n 40 mg 0-10 ity of tablet 00:00: [place] 00 Medical Branch atorvastati 2019-1 Yes Univer s n 40 mg 0-10 ity of tablet 00:00: [address] atorvastati 2018-03 Yes Univer s n 40 mg 0-10 ity of tablet 00:00: [address] atorvastati 2018-03 Yes Univer s n 40 mg 0-10 ity of tablet 00:00: [address] atorvastati 2018-03 Yes Univer s n 40 mg 0-10 ity of tablet 00:00: [address] ProAir HFA ProAir HFA No 1{puff_ 6xD ProAir HFA 108 (90 108 (90 as_need 108 (90 Base) Base) ed} Base) MCG/ACT MCG/ACT MCG/ACT Nucala 100 Nucala 100 No Nucala 100 MG/ML MG/ML MG/ML Aspirin 81 Aspirin 81 No 1{table QD Aspirin 81 81 MG 81 MG t} 81 MG Tiotropium Tiotropium No QD Tiotropium Pierson Pierson Pierson Monohydrate Monohydrate Monohydrat 18 MCG 18 MCG [...] 81 MG Tiotropium Tiotropium No QD Tiotropium Pierson Pierson Pierson Monohydrate Monohydrate Monohydrat 18 MCG 18 MCG [...] 81 MG Tiotropium Tiotropium No QD Tiotropium Pierson Pierson Pierson Monohydrate Monohydrate Monohydrat 18 MCG 18 MCG [...] 40 MG Tiotropium Tiotropium No QD Tiotropium Pierson Pierson Pierson Monohydrate Monohydrate Monohydrat 18 MCG 18 MCG [...] 75 MG Tiotropium Tiotropium No QD Tiotropium Pierson Pierson Pierson Monohydrate Monohydrate Monohydrat 18 MCG 18 MCG [...] 75 MG Tiotropium Tiotropium No QD Tiotropium Pierson Pierson Pierson Monohydrate Monohydrate Monohydrat 18 MCG 18 MCG [...] 40 MG Tiotropium Tiotropium No QD Tiotropium Pierson Pierson Pierson Monohydrate Monohydrate Monohydrat 18 MCG 18 MCG [...] 40 MG Tiotropium Tiotropium No QD Tiotropium Pierson Pierson Pierson Monohydrate Monohydrate Monohydrat 18 MCG 18 MCG [...] 100 No Nucala 100 MG/ML MG/ML MG/ML Budesonide Budesonide No Budesonide 0.5 MG/2ML 0.5 MG/2ML 0.5 MG/2ML predniSONE predniSONE No predniSONE 5 MG 5 MG 5 MG Nucala 100 Nucala 100 No Nucala 100 MG/ML MG/ML MG/ML Norvasc 5 Norvasc 5 No 1{table QD Norvasc 5 MG MG t} MG Atorvastati Atorvastati No 1{table Atorvastat n Calcium n Calcium t} in Calcium 40 MG 40 MG 40 MG ProAir HFA ProAir HFA No 1{puff_ 6xD ProAir HFA 108 (90 108 (90 as_need 108 (90 Base) Base) ed} Base) MCG/ACT MCG/ACT MCG/ACT Metoprolol Metoprolol No 1{table BID Metoprolol Tartrate 25 Tartrate 25 t_with_ Tartrate MG MG food} 25 MG Clopidogrel Clopidogrel No 1{table QD Clopidogre Bisulfate Bisulfate t} l 75 MG 75 MG Bisulfate 75 MG Omeprazole Omeprazole No BID Omeprazole 40 MG 40 MG 40 MG Furosemide Furosemide No Furosemide 40 MG 40 MG 40 MG Arformotero Arformotero No Arformoter l Tartrate l Tartrate ol 15 MCG/2ML 15 MCG/2ML Tartrate 15 MCG/2ML Tiotropium Tiotropium No QD Tiotropium Pierson Pierson Pierson Monohydrate Monohydrate Monohydrat 18 MCG 18 MCG e 18 MCG Ibuprofen Ibuprofen No Ibuprofen Aspirin 81 Aspirin 81 No 1{table QD Aspirin 81 81 MG 81 MG t} 81 MG Fluticasone Fluticasone No Fluticason Propionate Propionate e 50 MCG/ACT 50 MCG/ACT Propionate 50 MCG/ACT Budesonide Budesonide No Budesonide 0.5 MG/2ML 0.5 MG/2ML 0.5 MG/2ML predniSONE predniSONE No predniSONE 5 MG 5 MG 5 MG Nucala 100 Nucala 100 No Nucala 100 MG/ML MG/ML MG/ML Norvasc 5 Norvasc 5 No 1{table QD Norvasc 5 MG MG t} MG Atorvastati Atorvastati No 1{table Atorvastat n Calcium n Calcium t} in Calcium 40 MG 40 MG 40 MG ProAir HFA ProAir HFA No 1{puff_ 6xD ProAir HFA 108 (90 108 (90 as_need 108 (90 Base) Base) ed} Base) MCG/ACT MCG/ACT MCG/ACT Metoprolol Metoprolol No 1{table BID Metoprolol Tartrate 25 Tartrate 25 t_with_ Tartrate MG MG food} 25 MG Clopidogrel Clopidogrel No 1{table QD Clopidogre Bisulfate Bisulfate t} l 75 MG 75 MG Bisulfate 75 MG Omeprazole Omeprazole No BID Omeprazole 40 MG 40 MG 40 MG Furosemide Furosemide No Furosemide 40 MG 40 MG 40 MG Arformotero Arformotero No Arformoter l Tartrate l Tartrate ol 15 MCG/2ML 15 MCG/2ML Tartrate 15 MCG/2ML Tiotropium Tiotropium No QD Tiotropium Pierson Pierson Pierson Monohydrate Monohydrate Monohydrat 18 MCG 18 MCG e 18 MCG Metoprolol Metoprolol No 1{table BID Metoprolol Tartrate 25 Tartrate 25 t_with_ Tartrate MG MG food} 25 MG Ibuprofen Ibuprofen No Ibuprofen Aspirin 81 Aspirin 81 No 1{table QD Aspirin 81 81 MG 81 MG t} 81 MG Fluticasone Fluticasone No Fluticason Propionate Propionate e 50 MCG/ACT 50 MCG/ACT Propionate 50 MCG/ACT Arformotero Arformotero No Arformoter l Tartrate [...] 0.5 MG/2ML Tiotropium Tiotropium No QD Tiotropium Pierson Pierson Pierson Monohydrate Monohydrate Monohydrat 18 MCG 18 MCG [...] 0.5 MG/2ML Tiotropium Tiotropium No QD Tiotropium Pierson Pierson Pierson Monohydrate Monohydrate Monohydrat 18 MCG 18 MCG [...] 81 MG Tiotropium Tiotropium No QD Tiotropium Pierson Pierson Pierson Monohydrate Monohydrate Monohydrat 18 MCG 18 MCG [...] Furosemide 40 MG 40 MG 40 MG Immunizations Ordered Filled Immunization Date Status Comments [facility] e Immunization Name Name Influenza Virus 2022-02-17 Completed Universit y of Vaccine,quad 00:00:00 [place] [facility] [place] 65+ Influenza Virus 2022-02-17 Completed Universit y of Vaccine,quad 00:00:00 [place] [facility] [place] 65[facility] SARS-COV-2 COVID-19 2020-07-23 Completed Unive rsity of PFIZER VACCINE 00:00:00 [facility] SARS-COV-2 COVID-19 2020-07-23 Completed Unive rsity of PFIZER VACCINE 00:00:00 [facility] SARS-COV-2 COVID-19 2020-07-23 Completed Unive rsity of PFIZER VACCINE 00:00:00 [facility] SARS-COV-2 COVID-19 2020-07-23 Completed Unive rsity of PFIZER VACCINE 00:00:00 [facility] SARS-COV-2 COVID-19 2020-07-23 Completed Unive rsity of PFIZER VACCINE 00:00:00 [facility] SARS-COV-2 COVID-19 2020-07-23 Completed Unive rsity of PFIZER VACCINE 00:00:00 [facility] SARS-COV-2 COVID-19 2020-07-23 Completed Unive rsity of PFIZER VACCINE 00:00:00 [facility] SARS-COV-2 COVID-19 2020-07-23 Completed Unive rsity of PFIZER VACCINE 00:00:00 [facility] SARS-COV-2 COVID-19 2020-07-03 Completed Unive rsity of PFIZER VACCINE 00:00:00 [facility] SARS-COV-2 COVID-19 2020-07-03 Completed Unive rsity of PFIZER VACCINE 00:00:00 [facility] SARS-COV-2 COVID-19 2020-07-03 Completed Unive rsity of PFIZER VACCINE 00:00:00 [facility] SARS-COV-2 COVID-19 2020-07-03 Completed Unive rsity of PFIZER VACCINE 00:00:00 [facility] SARS-COV-2 COVID-19 2020-07-03 Completed Unive rsity of PFIZER VACCINE 00:00:00 [facility] SARS-COV-2 COVID-19 2020-07-03 Completed Unive rsity of PFIZER VACCINE 00:00:00 [facility] SARS-COV-2 COVID-19 2020-07-03 Completed Unive rsity of PFIZER VACCINE 00:00:00 [facility] SARS-COV-2 COVID-19 2020-07-03 Completed Unive rsity of PFIZER VACCINE 00:00:00 [facility] Influenza High Dose 2020-02-15 Completed Unive rsity of 00:00:00 [facility] Influenza High Dose 2020-02-15 Completed Unive rsity of 00:00:00 [facility] Influenza High Dose 2020-02-15 Completed Unive rsity of 00:00:00 [facility] Influenza High Dose 2020-02-15 Completed Unive rsity of 00:00:00 [facility] Influenza High Dose 2020-02-15 Completed Unive rsity of 00:00:00 [facility] Influenza High Dose 2020-02-15 Completed Unive rsity of 00:00:00 [facility] Influenza High Dose 2020-02-15 Completed Unive rsity of 00:00:00 [facility] Influenza High Dose 2020-02-15 Completed Unive rsity of 00:00:00 [facility] Influenza High Dose 2019-02-02 Completed Unive rsity of 00:00:00 [facility] Influenza High Dose 2019-02-02 Completed Unive rsity of 00:00:00 [facility] Influenza High Dose 2019-02-02 Completed Unive rsity of 00:00:00 [facility] Influenza High Dose 2019-02-02 Completed Unive rsity of 00:00:00 [facility] Influenza High Dose 2019-02-02 Completed Unive rsity of 00:00:00 [facility] Influenza High Dose 2019-02-02 Completed Unive rsity of 00:00:00 [facility] Influenza High Dose 2019-02-02 Completed Unive rsity of 00:00:00 [facility] Influenza High Dose 2019-02-02 Completed Unive rsity of 00:00:00 [facility] Pneumococcal 2017-09-22 Completed University o f Polysaccharide, 00:00:00 [facility] PPSV23 (PNEUMOVAX) Branch Pneumococcal 2017-09-22 Completed University [...] 00:00:00 [place] [facility] ical PPSV23 (PNEUMOVAX) Branch Zoster(Zostavax)( 2017-01-14 Completed Unive rsity of ingles) 00:00:00 [facility] Zoster Vaccine 2017-01-14 Completed University of Recombinant 00:00:00 [facility] Zoster(Zostavax)( 2017-01-14 Completed Unive rsity of ingles) 00:00:00 [facility] Zoster Vaccine 2017-01-14 Completed University of Recombinant 00:00:00 [facility] Zoster(Zostavax)( 2017-01-14 Completed Unive rsity of ingles) 00:00:00 [facility] Zoster Vaccine 2017-01-14 Completed University of Recombinant 00:00:00 [facility] Zoster(Zostavax)( 2017-01-14 Completed Unive rsity of ingles) 00:00:00 [facility] Zoster Vaccine 2017-01-14 Completed University of Recombinant 00:00:00 [facility] Zoster(Zostavax)( 2017-01-14 Completed Unive rsity of ingles) 00:00:00 [facility] Zoster Vaccine 2017-01-14 Completed University of Recombinant 00:00:00 [facility] Zoster(Zostavax)( 2017-01-14 Completed Unive rsity of ingles) 00:00:00 [facility] Zoster Vaccine 2017-01-14 Completed University of Recombinant 00:00:00 [facility] Zoster(Zostavax)( 2017-01-14 Completed Unive rsity of ingles) 00:00:00 [facility] Zoster Vaccine 2017-01-14 Completed University of Recombinant 00:00:00 [facility] Zoster(Zostavax)( 2017-01-14 Completed Unive rsity of ingles) 00:00:00 [facility] Zoster Vaccine 2017-01-14 Completed University of Recombinant 00:00:00 [facility] Pneumococcal 13 2015-09-11 Completed Universit y of Conjugate, PCV13 00:00:00 [facility] dical (Prevnar 13) Branch Pneumococcal 13 2015-09-11 Completed Universit y of Conjugate, PCV13 00:00:00 [facility] dical (Prevnar 13) Branch Pneumococcal 13 2015-09-11 Completed Universit y of Conjugate, PCV13 00:00:00 [facility] dical (Prevnar 13) Branch Pneumococcal 13 2015-09-11 Completed Universit y of Conjugate, PCV13 00:00:00 [facility] dical (Prevnar 13) Branch Pneumococcal 13 2015-09-11 Completed Universit y of Conjugate, PCV13 00:00:00 [facility] dical (Prevnar 13) Branch Pneumococcal 13 2015-09-11 Completed Universit y of Conjugate, PCV13 00:00:00 [facility] dical (Prevnar 13) Branch Pneumococcal 13 2015-09-11 Completed Universit y of Conjugate, PCV13 00:00:00 [facility] dical (Prevnar 13) Branch Pneumococcal 13 2015-09-11 Completed Universit y of Conjugate, PCV13 00:00:00 [facility] dical (Prevnar 13) Branch Influenza Virus 2013-01-18 Completed Universit y of Vaccine (3+ yrs) 00:00:00 [facility] Influenza Virus 2013-01-18 Completed Universit y of Vaccine (3+ yrs) 00:00:00 [facility] Branch Influenza Virus 2013-01-18 Completed Universit y of Vaccine (3+ yrs) 00:00:00 [facility] Branch Influenza Virus 2013-01-18 Completed Universit y of Vaccine (3+ yrs) 00:00:00 [facility] Branch Influenza Virus 2013-01-18 Completed Universit y of Vaccine (3+ yrs) 00:00:00 [place] [facility] Influenza Virus 2013-01-18 Completed Universit y of Vaccine (3+ yrs) 00:00:00 [facility] Influenza Virus 2013-01-18 Completed Universit y of Vaccine (3+ yrs) 00:00:00 [facility] Influenza Virus 2013-01-18 Completed Universit y of Vaccine (3+ yrs) 00:00:00 [facility] Branch Zoster(Zostavax)( 2012-05-20 Completed Unive rsity of ingles) 00:00:00 [facility] Zoster(Zostavax)( 2012-05-20 Completed Unive rsity of ingles) 00:00:00 [facility] Zoster(Zostavax)( 2012-05-20 Completed Unive rsity of ingles) 00:00:00 [facility] Zoster(Zostavax)( 2012-05-20 Completed Unive rsity of ingles) 00:00:00 [facility] Zoster(Zostavax)( 2012-05-20 Completed Unive rsity of ingles) 00:00:00 [facility] Zoster(Zostavax)( 2012-05-20 Completed Unive rsity of ingles) 00:00:00 [facility] Zoster(Zostavax)( 2012-05-20 Completed Unive rsity of ingles) 00:00:00 [facility] Zoster(Zostavax)( 2012-05-20 Completed Unive rsity of ingles) 00:00:00 [facility] Influenza Virus 2010-12-11 Completed Universit y of Vaccine (3+ yrs) 00:00:00 [facility] Influenza Virus 2010-12-11 Completed Universit y of Vaccine (3+ yrs) 00:00:00 [facility] Influenza Virus 2010-12-11 Completed Universit y of Vaccine (3+ yrs) 00:00:00 [facility] Influenza Virus 2010-12-11 Completed Universit y of Vaccine (3+ yrs) 00:00:00 [facility] Influenza Virus 2010-12-11 Completed Universit y of Vaccine (3+ yrs) 00:00:00 [facility] Influenza Virus 2010-12-11 Completed Universit y of Vaccine (3+ yrs) 00:00:00 [place] [facility] Influenza Virus 2010-12-11 Completed Universit y of Vaccine (3+ yrs) 00:00:00 [facility] Influenza Virus 2010-12-11 Completed Universit y of Vaccine (3+ yrs) 00:00:00 [facility] Influenza Virus 2010-01-16 Completed Universit y of Vaccine (3+ yrs) 00:00:00 [facility] Influenza Virus 2010-01-16 Completed Universit y of Vaccine (3+ yrs) 00:00:00 [facility] Influenza Virus 2010-01-16 Completed Universit y of Vaccine (3+ yrs) 00:00:00 [facility] Influenza Virus 2010-01-16 Completed Universit y of Vaccine (3+ yrs) 00:00:00 [facility] Influenza Virus 2010-01-16 Completed Universit y of Vaccine (3+ yrs) 00:00:00 [facility] Influenza Virus 2010-01-16 Completed Universit y of Vaccine (3+ yrs) 00:00:00 [facility] Influenza Virus 2010-01-16 Completed Universit y of Vaccine (3+ yrs) 00:00:00 [facility] Influenza Virus 2010-01-16 Completed Universit y of Vaccine (3+ yrs) 00:00:00 [facility] Influenza Virus 2009-02-14 Completed Universit y of Vaccine (3+ yrs) 00:00:00 [facility] Influenza Virus 2009-02-14 Completed Universit y of Vaccine (3+ yrs) 00:00:00 [facility] Influenza Virus 2009-02-14 Completed Universit y of Vaccine (3+ yrs) 00:00:00 [facility] Influenza Virus 2009-02-14 Completed Universit y of Vaccine (3+ yrs) 00:00:00 [facility] Influenza Virus 2009-02-14 Completed Universit y of Vaccine (3+ yrs) 00:00:00 [facility] Influenza Virus 2009-02-14 Completed Universit y of Vaccine (3+ yrs) 00:00:00 [facility] Influenza Virus 2009-02-14 Completed Universit y of Vaccine (3+ yrs) 00:00:00 [facility] Influenza Virus 2009-02-14 Completed Universit y of Vaccine (3+ yrs) 00:00:00 [facility] Influenza Virus 2008-01-04 Completed Universit y of Vaccine (3+ yrs) 00:00:00 [facility] Influenza Virus 2008-01-04 Completed Universit y of Vaccine (3+ yrs) 00:00:00 [facility] Influenza Virus 2008-01-04 Completed Universit y of Vaccine (3+ yrs) 00:00:00 [facility] Influenza Virus 2008-01-04 Completed Universit y of Vaccine (3+ yrs) 00:00:00 [facility] Influenza Virus 2008-01-04 Completed Universit y of Vaccine (3+ yrs) 00:00:00 [facility] Influenza Virus 2008-01-04 Completed Universit y of Vaccine (3+ yrs) 00:00:00 [facility] Influenza Virus 2008-01-04 Completed Universit y of Vaccine (3+ yrs) 00:00:00 [facility] Influenza Virus 2008-01-04 Completed Universit y of Vaccine (3+ yrs) 00:00:00 [facility] TDAP 2007-05-11 Completed University of 00:00:00 [facility] TDAP 2007-05-11 Completed University of 00:00:00 [facility] TDAP 2007-05-11 Completed University of 00:00:00 [facility] TDAP 2007-05-11 Completed University of 00:00:00 [facility] TDAP 2007-05-11 Completed University of 00:00:00 [facility] TDAP 2007-05-11 Completed University of 00:00:00 [facility] TDAP 2007-05-11 Completed University of 00:00:00 [facility] TDAP 2007-05-11 Completed University of 00:00:00 [facility] Influenza Virus 2007-01-14 Completed Universit y of Vaccine (3+ yrs) 00:00:00 [facility] Influenza Virus 2007-01-14 Completed Universit y of Vaccine (3+ yrs) 00:00:00 [facility] Influenza Virus 2007-01-14 Completed Universit y of Vaccine (3+ yrs) 00:00:00 [facility] Influenza Virus 2007-01-14 Completed Universit y of Vaccine (3+ yrs) 00:00:00 [facility] Influenza Virus 2007-01-14 Completed Universit y of Vaccine (3+ yrs) 00:00:00 [facility] Influenza Virus 2007-01-14 Completed Universit y of Vaccine (3+ yrs) 00:00:00 [facility] Influenza Virus 2007-01-14 Completed Universit y of Vaccine (3+ yrs) 00:00:00 [facility] Influenza Virus 2007-01-14 Completed Universit y of Vaccine (3+ yrs) 00:00:00 [facility] Pneumococcal 2003-01-14 Completed University o f Polysaccharide, [...] 2003-01-14 Completed University o f Polysaccharide, 00:00:00 [place] [facility] PPSV23 (PNEUMOVAX) Branch Vital Signs Vital Name Observation Time Observation Value Comments Source height 2022-04-09 10:00:00 64 [in_i] [facility] weight 2022-04-09 10:00:00 173.6 [lb_av] Common [facility] temperature 2022-04-09 10:00:00 98.7 [degF] [facility] bmi 2022-04-09 10:00:00 29.8 kg/m2 [facility] oximetry 2022-04-09 10:00:00 98 % [facility] respiratory rate 2022-04-09 10:00:00 18 /min Comm on [facility] blood pressure 2022-04-09 10:00:00 195 mm[Hg] Common [facility] - systolic [facility] blood pressure 2022-04-09 10:00:00 92 mm[Hg] Common [facility] - diastolic [facility] Systolic blood 2022-02-17 16:37:00 162 mm[Hg] Univer sity of pressure [facility] Diastolic blood 2022-02-17 16:37:00 81 mm[Hg] Unive rsity of pressure [facility] Heart rate 2022-02-17 16:37:00 70 /min Universi ty [facility] Respiratory rate 2022-02-17 16:34:00 19 /min [facility] height 2022-02-17 16:34:00 157.5 [facility] 2022-02-17 16:34:[address] [facility] BMI 2022-02-17 16:34:00 32.14 kg/m2 [facility] Oxygen saturation in 2022-02-17 16:34:00 98 /min [facility] [place] [facility] Arterial blood by [facility] Pulse oximetry Branch height 2022-01-23 10:30:00 64 [in_i] Common [facility] weight 2022-01-23 10:30:00 178.4 [lb_av] Common [facility] temperature 2022-01-23 10:30:00 98.1 [degF] Common S pirit [facility] bmi 2022-01-23 10:30:00 30.62 kg/m2 Common S pirit [facility] blood pressure 2022-01-23 10:30:00 128 mm[Hg] Common [facility] - systolic [facility] blood pressure 2022-01-23 10:30:00 82 mm[Hg] [facility] - diastolic [facility] height 2021-10-30 09:40:00 64 [in_i] [facility] weight 2021-10-30 09:40:00 179 [lb_av] [facility] temperature 2021-10-30 09:40:00 97.6 [degF] Common S pirit [facility] bmi 2021-10-30 09:40:00 30.72 kg/m2 [facility] oximetry 2021-10-30 09:40:00 97 % Common [facility] respiratory rate 2021-10-30 09:40:00 16 /min Comm on [facility] blood pressure 2021-10-30 09:40:00 130 mm[Hg] Common [facility] - systolic [facility] blood pressure 2021-10-30 09:40:00 76 mm[Hg] Common [facility] - diastolic [facility] height 2021-07-29 08:40:00 62 [in_i] Common S [facility] weight 2021-07-29 08:40:00 178.2 [lb_av] [facility] temperature 2021-07-29 08:40:00 97.5 [degF] [facility] bmi 2021-07-29 08:40:00 32.59 kg/m2 [facility] oximetry 2021-07-29 08:40:00 96 % [facility] respiratory rate 2021-07-29 08:40:00 16 /min Comm on [facility] blood pressure 2021-07-29 08:40:00 122 mm[Hg] Common [facility] - systolic [facility] blood pressure 2021-07-29 08:40:00 60 mm[Hg] Common [facility] - diastolic [facility] height 2021-07-29 09:00:00 62 [in_i] [facility] weight 2021-07-29 09:00:00 178.2 [lb_av] Common [facility] temperature 2021-07-29 09:00:00 97.5 [degF] Common S pirit [facility] bmi 2021-07-29 09:00:00 32.59 kg/m2 [facility] oximetry 2021-07-29 09:00:00 96 % [facility] respiratory rate 2021-07-29 09:00:00 16 /min Comm on [facility] blood pressure 2021-07-29 09:00:00 122 mm[Hg] Common [facility] - systolic [facility] blood pressure 2021-07-29 09:00:00 60 mm[Hg] Common [facility] - diastolic [facility] height 2021-07-02 09:00:00 62 [in_i] [facility] weight 2021-07-02 09:00:00 169.6 [lb_av] [facility] temperature 2021-07-02 09:00:00 97.1 [degF] [facility] bmi 2021-07-02 09:00:00 31.02 kg/m2 [facility] oximetry 2021-07-02 09:00:00 98 % [facility] respiratory rate 2021-07-02 09:00:00 16 /min Comm on [facility] blood pressure 2021-07-02 09:00:00 142 mm[Hg] [facility] - systolic [facility] blood pressure 2021-07-02 09:00:00 76 mm[Hg] [facility] - diastolic [facility] HEIGHT 2021-06-13 10:49:00 157.5 cm WEIGHT 2021-06-13 10:49:00 74.844 kg HEIGHT 2021-06-13 10:49:00 157.5 cm WEIGHT 2021-06-13 10:49:00 74.844 kg HEIGHT 2021-06-13 10:49:00 157.5 cm WEIGHT 2021-06-13 10:49:00 74.844 kg Systolic blood 2021-06-13 10:49:00 145 mm[Hg] [facility] Diastolic blood 2021-06-13 10:49:00 75 mm[Hg] [facility] Heart rate 2021-06-13 10:49:00 90 /min [facility] Body temperature 2021-06-13 10:49:00 36.39 Radha [facility] Respiratory rate 2021-06-13 10:49:00 14 /min [facility] Body height 2021-06-13 10:49:00 157.5 cm [facility] Body weight 2021-06-13 10:49:00 74.844 kg [facility] BMI 2021-06-13 10:49:00 30.18 kg/m2 [facility] Oxygen saturation in 2021-06-13 10:49:00 97 /min [facility] Arterial blood by Medical [facility] Pulse oximetry Procedures Procedure Date / Time Performed Performing Clinician Sourc e FLU 2022-02-17 16:55:34 Deangelo [facility] [place] VACC(),65+YR, Medical B [place] 0.5 ML,IM,ADJUVANTED,QUAD( FLUAD) INDIVIDUAL CARDIAC 2021-09-27 21:53:00 Doctor Unassigned, No Uni [facility] [place] TREATMENT PLAN Name Medical Branch Plan of Care Planned Activity Planned Date Details Comments Source Future Scheduled 2022-06-[address] [facility] Test 00:00:00 Counseling and Medical Cente r Screening (12+) [code = Tobacco Cessation Counseling and Screening (12+)] Future Scheduled 2022-06-[address] [...] RISK Medical C enter SCREENING] Future Scheduled 2022-03-[address] [facility] Test 00:00:00 (12+) [code = Medical Center DEPRESSION SCREENING (12+)] Future Scheduled 2022-03-16 FALLS RISK SCREENING [facility] Test 00:00:00 [code = FALLS RISK Medical C enter SCREENING] Future Scheduled 2021-11-14 INFLUENZA VACCINE (#1) [facility]:00:00 [code = INFLUENZA Medical Ce nter VACCINE (#1)] Future Scheduled 2021-11-14 INFLUENZA VACCINE (#1) [facility] 00:00:00 [code = INFLUENZA Medical Ce nter VACCINE (#1)] Future Scheduled 2020-12-23 COVID-19 VACCINE (3 - [facility] 00:00:00 Booster for Pfizer Medical C enter series) [code = COVID-19 VACCINE (3 - Booster for Pfizer series)] Future Scheduled 2020-12-23 COVID-19 VACCINE (3 - [facility] 00:00:00 Booster for Pfizer Medical C enter series) [code = COVID-19 VACCINE (3 - Booster for Pfizer series)] Future Scheduled 2017-05-11 DTAP/TDAP/TD VACCINES [facility] 00:00:00 (2 - Td or Tdap) [code Medic al Center = DTAP/TDAP/TD VACCINES (2 - Td or Tdap)] Future Scheduled 2017-05-11 DTAP/TDAP/TD VACCINES [facility] 00:00:00 (2 - Td or Tdap) [code Medic al Center = DTAP/TDAP/TD VACCINES (2 - Td or Tdap)] Future Scheduled 2017-03-11 SHINGLES VACCINES ([address] [facility] 00:00:00 3) [code = SHINGLES Medical Center VACCINES (2 of 3)] Future Scheduled 2017-03-11 SHINGLES VACCINES ([address] [facility] 00:00:00 3) [code = SHINGLES Medical Center VACCINES (2 of 3)] Future Scheduled 2016-05-[address] [facility] 00:00:00 WELLNESS (YEAR 2 or Medical Center FIRST YEAR if no IPPE) [code = MEDICARE ANNUAL WELLNESS (YEAR 2 or FIRST YEAR if no IPPE)] Future Scheduled 2016-05-[address] [facility] 00:00:00 WELLNESS (YEAR 2 or Medical Center FIRST YEAR if no IPPE) [code = MEDICARE ANNUAL WELLNESS (YEAR 2 or FIRST YEAR if no IPPE)] Future Scheduled 2015-06-[address] [facility] Test 00:00:00 aneurysm screening Medical C enter (procedure) [code = 841126454] Future Scheduled 2015-06-[address] [facility] Test 00:00:00 aneurysm screening Medical C enter (procedure) [code = 847654593] Future Scheduled 1968 HEPATITIS C SCREENING [facility] 00:00:00 [code = HEPATITIS C Medical Center SCREENING] Future Scheduled 1968 HEPATITIS C [facility]CRE[facility]ING [facility] 00:00:00 [code = HEPATITIS C Medical Center SCREENING] Future Scheduled 1950 CT Colonography (combo) [facility] 00:00:00 [code = CT Colonography [facility] (combo)] Future Scheduled 1950 Screening for malignant [facility] Test 00:00:00 neoplasm of colon Medical Ce nter (procedure) [code = 574368805] Future Scheduled 1950 Screening for malignant [facility] Test 00:00:00 neoplasm of colon Medical Ce nter (procedure) [code = 522390433] Future Scheduled 1950 Screening for malignant [facility] Test 00:00:00 neoplasm of colon Medical Ce nter (procedure) [code = 506125485] Future Scheduled 1950 Screening for malignant [facility] Test 00:00:00 neoplasm of colon Medical Ce nter (procedure) [code = 066991136] Future Scheduled 1950 Sigmoidoscopy [code = [facility] ([facility]bo[facility] 00:00:00 [code = CT Colonography [facility] (combo)] Future Scheduled 1950 Screening for malignant [facility] Test 00:00:00 neoplasm of colon Medical Ce nter (procedure) [code = 943799404] Future Scheduled 1950 Screening for malignant [facility] Test 00:00:00 neoplasm of colon Medical Ce nter (procedure) [code = 378947734] Future Scheduled 1950 Screening for malignant [facility] Test 00:00:00 neoplasm of colon Medical Ce nter (procedure) [code = 759504806] Future Scheduled 1950 Screening for malignant [facility] Test 00:00:00 neoplasm of colon Medical Ce nter (procedure) [code = 399913350] Future Scheduled 1950 Sigmoidoscopy [code = [facility] Sigmoidoscopy] Medical Cente r Encounters Start End Encounter Admission Attending Care Care Encounter Source Date/Time Date/Time Type Type Clinicians Facility Department ID 2022-04-04 Outpatient De Jesus, STLMLC ST[facility] [id number] Common 11:21:02 Chelsie [address] [facility] 2022-01-23 Outpatient De Jesus, STLC [facility] [id number] Common 11:42:01 Chelsie [facility] 2022-01-09 Outpatient De Jesus, STLC [facility] [id number] Common 14:19:01 Chelsie [facility] 2021-10-28 Outpatient De Jesus, [facility] [id number] Common 11:01:01 Chelsie [facility] 2021-10-24 Outpatient De Jesus, STLC [facility] [id number] Common 10:37:05 Chelsie [facility] 2021-07-03 Outpatient De Jesus, STLC [facility] [id number] Common 09:47:03 Chelsie [facility] 2021-07-02 Outpatient De Jesus, STLC [facility] [id number] Common 08:44:04 Chelsie [facility] 2022-08-18 2022-08-18 Outpatient BENNY GERARDO [place] 10 [id number] Univers 10:00:00 10:00:00 BENNY D[address] i [facility] 2022-04-22 2022-04-22 (TEL) STLC ST[facility] [id number] Co mmon 00:00:00 00:00:00 [facility] 2022-04-22 2022-04-22 (TEL) STLC STLC [id number] Co mmon 00:00:00 00:00:00 [facility] 2022-04-15 2022-04-15 (TEL) STLMLC STLC [id number] Co mmon 00:00:00 00:00:00 [facility] 2022-04-09 2022-04-09 OFFICE STLMLC STLC [id number] Co mmon 00:00:00 00:00:00 VISIT NEW Spir it PT LEVEL 3 - [facility] 2022-02-17 2022-02-17 Outpatient R ELVIA DINGNYChacorta [place] 10 [id number] Univers 10:30:00 10:59:59 BENNY DING i ty of [facility] 2022-02-17 2022-02-17 [facility] [id number] Univers 10:30:00 10:59:59 Visit Benny [place] [id number] i ty [id number] [id number] In vitaly TENA 085 Branch [facility] 2022-02-17 2022-02-17 Outpatient R BENNY DING [place] 10 [id number] Univers 10:30:00 10:30:00 BENNY DING i ty [facility] 2022-01-30 2022-01-30 (TEL) [facility] STLC [id number] Co mmon 00:00:00 00:00:00 [facility] 2022-01-23 2022-01-23 OFFICE [facility] STLC [id number] Co mmon 00:00:00 00:00:00 VISIT NEW Spir it PT LEVEL 4 - [facility] 2021-12-13 2021-12-13 Patient Casey [facility] [id number] Univers 00:00:00 00:00:00 Outreach [facility] [id number] i ty of [place] [id number] Dwain as JOHANN?BLEA [id number] In dical KNEY 044 [facility] OFFICE BUILDING 2021-11-28 2021-11-28 Telephone Team, [facility] ANDREA [id number] Univers 00:00:00 00:00:00 Health CARLITOS [id number] it y of [facility] [id number] [place] [id number] [facility] 082 Branch 2021-10-31 2021-10-31 Outpatient R ROZINA, [place] [id number] Univers 10:30:00 10:30:00 [facility] 2021-10-30 2021-10-30 OFFICE STLMLC STLMLC [id number] Co mmon 00:00:00 00:00:00 VISIT Spirit [facility] PT - CHI LEVEL 4 [facility] 2021-10-15 2021-10-15 Outpatient R ROZINA, [place] [id number] Univers 10:30:00 10:30:00 [facility] molly [facility] 2021-10-10 2021-10-10 Outpatient R ROZINA, [place] [id number] Univers 10:30:00 10:30:00 [facility] 2021-09-30 2021-09-30 (TEL) STLMLC STLMLC [id number] Co mmon 00:00:00 00:00:00 Spirit [facility] 2021-09-27 2021-09-27 Orders Doctor ANDREA [id number] [id number] Univers 00:00:00 00:00:00 Only Unassigned, CARLITOS [id number] ity of [place] [facility] [id number] [facility] [place] [facility] [phone] [facility] 009 Branch 2021-09-17 2021-09-17 Outpatient R ROZINA, [place] [id number] Univers 10:30:00 10:30:00 [facility] 2021-09-17 2021-09-17 Outpatient R ROZINA, [place] [id number] Univers 10:30:00 10:30:00 [facility] 2021-09-17 2021-09-17 DOMENICO Clark [id number] Univers 00:00:00 00:00:00 Jeannie Y HEALTH [id number] i ty of [facility] [id number] Dwain as [phone] [address] 2021-09-17 2021-09-17 [facility] [id number] Univers 00:00:00 00:00:00 Benny SAMS [id number] [facility] [id number] [id number] In dical NAL 085 [facility] 2021-09-12 2021-09-12 Outpatient R [facility] [id number] Univers 10:30:00 10:30:00 MARSHA barnes o f [facility] 2021-08-22 2021-08-22 Rn Office Rehab, [facility] Cardiac [facility] 1.2. 840.114 [id number] Univers 10:30:00 11:24:28 [facility] [id number] [id number] [id number] In dicla NAL 060 [facility] 2021-08-22 2021-08-22 Rn Office Rehab, [facility] Cardiac [facility] 1.2. 840.114 [id number] [facility] 10:30:00 11:24:28 Visit Marsha Reis [id number] ity [id number] [id number] In dical NAL 060 [facility] 2021-08-22 2021-08-22 Outpatient R [facility] [id number] Univers 10:30:00 10:30:00 MARSHA ity o [facility] 2021-08-20 2021-08-20 Rn Office Rehab, [facility] Cardiac [facility] 1.2. 840.114 [id number] [facility] 10:30:00 11:29:06 Visit Marsha Reis [id number] ity [id number] [id number] In dical NAL 060 [facility] 2021-08-20 2021-08-20 Orders Doctor ANDREA 1.2.840.114 [id number] Univers 00:00:00 00:00:00 Only Unassigned, CARLIT[place] [id number] ity of [place] [facility] [id number] Dwain as [phone] [address] 2021-08-16 2021-08-16 Outpatient R ELVIA DINGNYChacorta [place] 10 [id number] Univers 13:30:00 14:29:24 BENNY DING i ty [facility] 2021-08-16 2021-08-16 Office [facility] 1.2.840.114 [id number] Univers 13:30:00 14:29:24 Visit Benny SAMS [id number] i ty [id number] [phone] [address] 2021-08-16 2021-08-16 Outpatient R BENNY DING [place] 10 [id number] Univers 13:30:00 13:30:00 BENNY DING i ty [facility] 2021-08-16 2021-08-16 Telephone [facility] [id number] Univers 00:00:00 00:00:00 Benny SAMS [id number] i ty [id number] [id number] [address] 2021-08-15 2021-08-15 Rn Office Rehab, [facility] Cardiac [facility] 1.2. 840.114 [id number] Univers 10:30:00 11:28:31 Visit Marsha Reis [id number] ity [id number] [phone] In dic[address] 2021-08-15 2021-08-15 Rn Office Rehab, [facility] Cardiac [facility] 1.2. 840.114 [id number] Univers 10:30:00 11:28:31 Visit Marsha Reis [id number] ity [id number] [phone] In dical NAL 0 [facility] 2021-08-15 2021-08-15 Outpatient R ROZINA, [place] [id number] Univers 10:30:00 10:30:00 QIANGJUN ity o f [facility] 2021-08-15 2021-08-15 Outpatient R ROZINA, [place] [id number] Univers 10:30:00 10:30:00 QIANGJUN ity o f [facility] 2021-08-15 2021-08-15 Outpatient R ROZINA, [place] [id number] [facility] 10:30:00 10:30:00 QIANGJUN ity o [facility] 2021-08-13 2021-08-13 Rn Office Rehab, [facility] Cardiac [facility] 1.2. 840.114 [id number] [facility] 10:30:00 11:20:27 Visit Marsha ReisTON [id number] [facility] [id number] [id number] In dical NAL [address] [place] [address] 2021-08-13 2021-08-13 Rn Office Rehab, [facility] Cardiac [facility] 1.2. 840.114 [id number] [facility] 10:30:00 11:20:27 Visit Marsha ReisTON 350.1.13.10 ity of [place] [phone] In dical NAL [address] [place] [address] 2021-08-13 2021-08-13 Outpatient R ROZINA, [place] [id number] [facility] 10:30:00 10:30:00 QIANGJUN ity o [facility] 2021-08-08 2021-08-08 Rn Office Rehab, [facility] Cardiac [facility] 1.2. 840.114 [id number] [facility] 10:30:00 11:35:47 Visit Marsha ReisTON 350.1.13.10 it[place] of [place] [phone] In dical NAL [address] [place] [address] 2021-08-08 2021-08-08 Rn Office Rehab, [facility] Cardiac [facility] 1.2. 840.114 [id number] Univers 10:30:00 11:35:47 Visit Marsha Reis 350.1.13.[address] [facility] 4.[place] [phone] In dical NAL 060 [facility] 2021-08-08 2021-08-08 Outpatient R ROZINA [place] [id number] [facility] 10:30:00 10:30:00 MARSHA adamy o f [facility] 2021-08-08 2021-08-08 Orders Doctor ANDREA 1.2.840.114 [id number] Univers 00:00:00 00:00:00 Only Unassigned, CARLITOS 350.1.13.10 ity of [place] [facility] 4.2.7.2.686 Dwain as [phone] [address] 2021-08-05 2021-08-05 Telephone [facility] 1.2.937.033 [id number] Univers 00:00:00 00:00:00 Benny SAMS 350.1.13.10 i ty [address] [facility] 4[place] [phone] In dical NAL 059 [facility] 2021-08-01 2021-08-01 Rn Office Rehab, [facility] Cardiac [facility] 1.2. 840.114 [id number] [facility] 10:30:00 11:40:53 Visit Marsha Reis 350.1.13.[address] [facility] 4[place] [phone] In dical NAL 060 [facility] 2021-08-01 2021-08-01 Rn Office Rehab, [facility] Cardiac [facility] 1.2. 840.114 [id number] Univers 10:30:00 11:40:53 Visit Marsha Reis 350.1.13.[address] [facility] 4.2.7.2.[place] [phone] In dical NAL 060 [facility] 2021-08-01 2021-08-01 Outpatient R ROZINA [place] [id number] Univers 10:30:00 10:30:00 MARSHA ity o f [facility] 2021-07-30 2021-07-30 Rn Office Reh, [facility] Cardiac [facility] 1.2. 840.114 [id number] [facility] 10:30:00 11:22:25 Visit Marsha Reis 350.1.13.[address] [facility] 4.2.7.2.[place] [phone] In dical NAL 060 [facility] 2021-07-29 2021-07-29 OFFICE STLMLC STLMLC [id number] Co mmon 00:00:00 00:00:00 VISIT EST Spir it PT LEVEL 3 - CHI [facility] 2021-07-29 2021-07-29 SUB ANNUAL STLMLC STLMLC [id number] Common 00:00:00 00:00:00 MCR Spirit WELLNESS - CHI VISIT [facility] 2021-07-26 2021-07-26 Telephone [facility] 1.2.312.699 [id number] Univers 00:00:00 00:00:00 Benny SAMS 350.1.13.10 i ty of [place] [phone] In dical NAL 085 [facility] 2021-07-25 2021-07-25 Rn Office Rehab, [facility] Cardiac [facility] 1.2. 840.114 [id number] [facility] 10:30:00 11:02:21 Visit Marsha Reis 350.1.13.[address] [facility] 4.2.7.2.[place] [phone] In dical NAL 060 [facility] 2021-07-25 2021-07-25 Orders Doctor ANDREA 1.2.840.114 [id number] Univers 00:00:00 00:00:00 Only Unassigned, CARLITOS 350.1.13.10 ity of [place] [facility] 4.2.7.2.686 [place] [phone] [address] 2021-07-23 2021-07-23 Rn Office Rehab, [facility] Cardiac [facility] 1.2. 840.114 [id number] Univers 10:30:00 11:29:21 Visit Marsha Reis 350.1.13.10 ity of [place].2.[place] [phone] In dicisidra NAL 060 [facility] 2021-07-23 2021-07-23 Telephone Ding, [facility] 1.2.783.671 [id number] Univers 00:00:00 00:00:00 Elviagordonchacorta SAMS 350.1.13.10 i ty of [place] [phone] In dicisidra NAL 085 [facility] 2021-07-23 2021-07-23 (TEL) [facility] [id number] Co mmon 00:00:00 00:00:00 [facility] 2021-07-16 2021-07-16 Rn Office Rehab, Adc Cardiac [facility] 1.2. 840.114 [id number] Univers 10:30:00 11:11:38 Visit Marsha Reis 350.1.13.10 ity of [place].2.[place] [phone] In vitaly NAL 0 [facility] 2021-07-16 2021-07-16 Outpatient R ROZINA, [place] [id number] Univers 10:30:00 10:30:00 MARSHA barnes o [facility] 2021-07-16 2021-07-16 Outpatient R ROZINA, [place] [id number] Univers 10:30:00 10:30:00 MARSHA adamy o [facility] 2021-07-16 2021-07-16 Outpatient R ROZINA, [place] [id number] Univers 10:30:00 10:30:00 MARSHA adamy o [facility] 2021-07-16 2021-07-16 Outpatient R ROZINA, [place] [id number] Univers 10:30:00 10:30:00 [facility] 2021-07-16 2021-07-16 Orders Doctor MENDEZ 1.2.840.114 [id number] Univers 00:00:00 00:00:00 Only Unassigned, CARLITOS 350.1.13.10 it[place] of [place] HOSPITAL 4.2.7.2.686 [place] [phone] [address] 2021-07-11 2021-07-11 Rn Office Rehab, [facility] Cardiac [facility] 1.2. 840.114 [id number] Univers 10:30:00 11:08:34 Visit Marsha Reis LATRELL 350.1.13.[address] [facility] 4.2.7.2.[place] [phone] In dical NAL 060 [facility] 2021-07-11 2021-07-11 Outpatient R [facility] [id number] Univers 10:30:00 10:30:00 MARSHA barnes o f [facility] 2021-07-11 2021-07-11 Orders Doctor MENDEZ 1.2.840.114 [id number] Univers 00:00:00 00:00:00 Only Unassigned, CARLITOS 350.1.13.10 ity of [place] HOSPITAL 4.2.7.2.686 [place] [phone] [address] 2021-07-09 2021-07-09 Rn Office Rehab, [facility] Cardiac [facility] 1.2. 840.114 [id number] Univers 10:30:00 11:54:01 Visit Renate Reispriceoscar LATRELL 350.1.13.[address] [facility] 4.2.7.2.[place] [phone] In dical NAL 060 [facility] 2021-07-09 2021-07-09 Outpatient R [facility] [id number] Univers 10:30:00 10:30:00 MARSHA barnes o f [facility] 2021-07-09 2021-07-09 Orders Doctor MENDEZ 1.2.840.114 [id number] Univers 00:00:00 00:00:00 Only Unassigned, CARLITOS 350.1.13.10 [place] of [place] HOSPITAL 4.2.7.2.686 [place] [phone] [address] 2021-07-04 2021-07-05 Rn Office Rehab, [facility] Cardiac [facility] 1.2. 840.114 [id number] Univers 10:30:00 16:13:22 Visit Marsha ReisCHARLY 350.1.13.10 ity of [place] [phone] In dicla NAL 060 [facility] 2021-07-04 2021-07-04 Rn Office Rehab, [facility] Cardiac [facility] 1.2. 840.114 [id number] Univers 10:30:00 12:00:00 Visit Marsha Reis 350.1.13.[address] [facility] 4.2.7.2.[place] [phone] [place] [id number] [facility] 2021-07-04 2021-07-04 Outpatient R [facility] [id number] Univers 10:30:00 10:30:00 [facility] 2021-07-04 2021-07-04 Outpatient R [facility] [id number] Univers 10:30:00 10:30:00 [facility] jairy o [facility] 2021-07-04 2021-07-04 Orders Doctor ANDREA 1..840.114 [id number] Univers 00:00:00 00:00:00 Only Unassigned, CARLITOS 350.1.13.10 [place] of [place] HOSPITAL 4.2.7.2.686 [place] [phone] [facility] [address] 2021-07-04 2021-07-04 RefDOMENICO Doe 1.2.840.114 [id number] Univers 00:00:00 00:00:00 [facility] 350.1.13.10 i ty of [facility] 4.2.7.2.686 [place] [phone] [facility] [address] 2021-07-04 2021-07-04 [facility] 1.2.840.114 [id number] Univers 00:00:00 00:00:00 Benny SAMS 350.1.13.10 i ty of [place] [phone] In dical NAL 085 [facility] 2021-07-02 2021-07-02 Rn Office Rehab, Adc Cardiac [facility] 1.2. 840.114 [id number] Univers 10:30:00 11:22:47 Visit Marsha Reis 350.1.13.10 ity of [place] [phone] In dical NAL 060 [facility] 2021-07-02 2021-07-02 Orders Doctor ANDREA 1.2.840.114 [id number] Univers 00:00:00 00:00:00 Only Unassigned, CARLITOS 350.1.13.10 [place] of [place] HOSPITAL 4.2.7.2.686 [place] [phone] [facility] [address] 2021-07-02 2021-07-02 OFFICE STLMLC STLMLC [id number] Co mmon 00:00:00 00:00:00 VISIT [facility] PT LEVEL 4 - CHI [facility] 2021-07-02 2021-07-02 (TEL) STLMLC STLMLC [id number] Co mmon 00:00:00 00:00:00 Spirit [facility] 2021-07-01 2021-07-01 Telephone Agus [facility] 1.2.900.586 [id number] Univers 00:00:00 00:00:00 Lauryn HEALTH 350.1.13.10 it y of [place] 4.2.7.2.686 [place] JOHANN?BLEA [phone] In dical KNEY [address] MEDICAL OFFICE BUILDING 2021-06-30 2021-06-30 Kaleb Voss [facility] 1.2.994.360 [id number] Univers 00:00:00 00:00:00 Jaja L Y HEALTH 350.1.13.10 ity of [place] [phone] [facility] [address] 2021-06-27 2021-06-27 Orders Doctor ANDREA 1.2.840.114 [id number] Univers 00:00:00 00:00:00 Only Unassigned, CARLITOS 350.1.13.10 [place] of [place] HOSPITAL 4.2.7.2.686 [place] [phone] [address] 2021-06-26 2021-06-26 Rn Office Reh, Adc Cardiac [facility] 1.2. 840.114 [id number] Univers 10:00:00 10:58:45 Visit Marsha Reis 350.1.13.[address] [facility] 4.2.7.2.[place] [phone] In dical NAL 060 [facility] 2021-06-26 2021-06-26 Orders Doctor ANDREA 1.2.840.114 [id number] Univers 00:00:00 00:00:00 Only Unassigned, CARLITOS 350.1.13.10 [place] of [place] HOSPITAL 4.2.7.2.686 [place] [phone] [address] 2021-06-26 2021-06-26 Refill Deangelo [facility] 1.2.840.114 [id number] Univers 00:00:00 00:00:00 Benny SAMS 350.1.13.10 i ty [place] [phone] In dical NAL 085 [facility] 2021-06-19 2021-06-19 Telephone Deangelo [facility] 1.2.566.863 [id number] Univers 00:00:00 00:00:00 Benny SAMS 350.1.13.10 i ty of [facility] 4.2.7.2.[place] [phone] In dical NAL 059 [facility] 2021-06-17 2021-06-17 Rn Office Shannan, Adc Lab Main [facility] 1.2.8 40.114 [id number] Univers 12:30:00 12:45:00 Visit Ozzie Munoz 350.1.13.[address] [facility] 4.2.7.2.[place] [phone] In dical NAL 353 [facility] 2021-06-17 2021-06-17 Outpatient R TAMMY [place] [id number] Univers 12:30:00 12:30:00 OZZIE barnes [facility] 2021-06-16 2021-06-16 [facility] RUIZ Munoz 1.2.840.114 [id number] Univers 08:02:00 23:59:00 Encounter Ozzie H 350.1.13.10 ity of [place] 4.2.7.2.686 [place] [phone] [address] 2021-06-16 2021-06-16 Outpatient Karlene MUNOZ [facility] ACO [id number] Univers 00:00:00 23:59:00 OZZIE barnes [facility] 2021-06-15 2021-06-15 [facility] RUIZ Munoz 1.2.840.114 [id number] Univers 09:55:00 23:59:00 Encounter Ozzie Strong 350.1.13.10 ity of [facility] 4.2.7.2.686 [place] [phone] [address] 2021-06-15 2021-06-15 [facility] Tammy RUIZ 1.2.840.114 [id number] Univers 09:34:00 09:54:00 Encounter Ozzie Strong 350.1.13.10 ity of [facility] 4.2.7.2.686 [place] [phone] [address] 2021-06-15 2021-06-15 Outpatient Karlene MUNOZ [facility] ACO [id number] Univers 00:00:00 09:54:00 OZZIE barnes [facility] 2021-06-15 2021-06-15 Outpatient Karlene MUNOZ [facility] ACO [id number] Univers 00:00:00 09:54:00 OZZIE [facility] 2021-06-14 2021-06-14 Rn Office 2, Adc Lab [facility] 1.2.840.114 [id number] Univers 11:15:00 11:26:26 Visit Benny Ding 350.1.13.10 ity [facility] 4.2.7.2.[place] [phone] [address] 2021-06-14 2021-06-14 Outpatient BENNY GERARDO [place] 10 [id number] Univers 11:15:00 11:15:00 BENNY DING i ty of [facility] 2021-06-14 2021-06-14 Office Deangelo [facility] 1.2.840.114 [id number] Univers 10:00:00 11:01:59 Visit Benny SAMS 350.1.13.10 i ty of [place].2.[place] [phone] In dical NAL [address] [place] [address] 2021-06-14 2021-06-14 Outpatient R BENNY DING [place] 10 [id number] Univers 10:00:00 10:00:00 BENNY DING i ty of [facility] 2021-06-14 2021-06-14 Telephone Deangelo [facility] 1.2.474.589 [id number] Univers 00:00:00 00:00:00 Benny SAMS 350.1.13.10 i ty of [place] [phone] In dical NAL [address] [place] [address] 2021-06-14 2021-06-14 Orders Doctor ANDREA 1.2.840.114 [id number] Univers 00:00:00 00:00:00 Only Unassigned, CARLITOS 350.1.13.10 ity of [facility] 4.2.7.2.686 [place] [phone] [address] 2021-06-13 2021-06-13 Office Jessika [facility] [id number] 11:30:00 12:00:00 Visit [facility] 2021-06-13 2021-06-13 Office Jessika [facility] [id number] [address] 11:30:00 12:00:00 Visit [facility] 2021-06-13 2021-06-13 Outpatient MARCUS CHILDS [facility] [id number] [facility] 10:45:51 10:45:51 MAC 2021-06-06 2021-06-06 Outpatient R LINO ARAUJO [place] [id number] Univers 13:30:00 14:15:16 ity of [facility] 2021-06-06 2021-06-06 Office Lino Araujo [facility] 1.2.840.114 [id number] Univers 13:30:00 14:15:16 Visit Y HEALTH 350.1.13.10 i ty of [place] [id number] [facility] [address] 2021-06-06 2021-06-06 Orders Doctor ANDREA 1.2.840.114 [id number] Univers 00:00:00 00:00:00 Only Unassigned, CARLITOS 350.1.13.10 ity of [place] HOSPITAL 4.2.7.2.686 [place] [phone] [facility] [address] 2021-06-05 2021-06-05 [facility] 1.2.057.528 [id number] Univers 00:00:00 00:00:00 Jaja L Y HEALTH 350.1.13.10 ity of [place] 4[place].2.[place] [id number] [facility] [address] 2021-05-28 2021-05-28 Transition JOSÉ MIGUEL Mccarthy 1.2.840.114 [id number] Univers 00:00:00 00:00:00 of Care Greg MCKINNEY 350.1.13.10 ity of [place] 4[place]2.7.2.[place] [id number] [facility] [address] 2021-05-25 2021-05-26 Outpatient X NOVA LUCERO [facility] [id number] Univers 11:10:00 17:18:00 ity of [facility] 2021-05-25 2021-05-26 Emergency Juan Antonio Marin 1.2.840. 114 [id number] Univers 11:10:00 17:18:00 Nova Lucero 350.1.13.10 ity of [facility] 4.2.7.2.686 [place] [phone] [facility] [address] 2021-05-23 2021-05-23 Transition JOSÉ MIGUEL Lance 1.2.840.114 [id number] Univers 00:00:00 00:00:00 of Care Daniela MCKINNEY 350.1.13.10 it y of [place]2.7.2.[place] [phone] [facility] [address] 2021-05-15 2021-05-22 Inpatient X LINO ARAUJO [facility] [id number] Univers 10:29:00 14:00:00 ity of [facility] 2021-05-15 2021-05-22 [facility] Roverto Coleman 1.2.8 40.114 [id number] Univers 10:29:00 14:00:00 Encounter Lino Araujo 350.1.13.10 ity [facility] 4.2.7.2.686 [place] [phone] [facility] [address] 2021-05-20 2021-05-20 [facility] [id number] Univers 13:00:00 13:00:00 MARSHA ity o f [facility] 2021-05-15 2021-05-15 [facility] [id number] Univers 13:00:00 13:00:00 SENDIL ity [facility] 2021-05-10 2021-05-10 Telephone [place] 1.2.840.114 [id number] Univers 00:00:00 00:00:00 Jaja L Y HEALTH 350.1.13.10 ity of [place] [id number] [facility] [address] 2021-05-09 2021-05-09 Office Lino Araujo [facility] 1.2.840.114 [id number] Univers 14:00:00 14:23:15 Visit Y HEALTH 350.1.13.10 i ty of [place] [id number] [facility] [address] 2021-05-09 2021-05-09 Outpatient R LINO ARAUJO [place] [id number] Univers 14:00:00 14:23:15 ity [facility] 2021-05-09 2021-05-09 Outpatient R LINO ARAUJO [place] [id number] Univers 14:00:00 14:00:00 ity of [facility] 2021-05-09 2021-05-09 Case ANDREA Real 1.2.840.114 [id number] Univers 00:00:00 00:00:00 Management Jaja URBINA 350.1.13.10 ity of [facility] 4.2.7.2.686 [place] [phone] [facility] [address] 2021-05-07 2021-05-07 Outpatient R ADDIE [place] [id number] Univers 10:09:36 23:59:00 JAJA barnes of [facility] 2021-05-06 2021-05-06 Telephone ANDREA Real 1.2.210.994 [id number] Univers 00:00:00 00:00:00 Jaja URBINA 350.1.13.10 ity of [facility] 4.2.7.2.686 [place] [phone] [facility] [address] 2021-05-05 2021-05-05 Natalia Real ANDREA 1.2.420.865 [id number] Univers 00:00:00 00:00:00 Jaja URBINA 350.1.13.10 ity of [facility] 4.2.7.2.686 [place] [phone] [facility] [address] 2021-05-02 2021-05-02 [place] Shanika [facility] 1.2.840.114 [id number] Univers 00:00:00 00:00:00 Jaja Hebert [facility] 350.1.13.10 ity of [facility] 4.2.7.2.[place] [id number] [facility] [address] 2021-04-30 2021-04-30 Transition JOSÉ MIGUEL Fox 1.2.840.114 [id number] Univers 00:00:00 00:00:00 of Care Natasha L MCKINNEY 350.1.13.10 i ty of [place]2.[place] [id number] [facility] [address] 2021-04-15 2021-04-29 Inpatient X DAORohithLINO [facility] SCT [id number] Univers 21:54:00 13:07:00 ity of [facility] 2021-04-15 2021-04-29 [facility] Essence Whitlock 1.2.840. 114 [id number] Univers 21:54:00 13:07:00 Encounter OdalysDunia weston CARLITOS 350.1.13 .10 ity of [facility] 4.2.7.2.686 Chalo Faith [phone] Medical Lino Araujo 2021-04-15 2021-04-29 Inpatient X LINO ARAUJO [facility] [id number] Univers 21:54:00 13:07:00 ity of [facility] 2021-04-29 2021-04-29 Refill Germaine [facility] 1.2.840.114 [id number] Univers 00:00:00 00:00:00 [facility] 350.1.13.10 i ty of [place] 4.2.7.2.686 Dwain as BOUCHRA [phone] [facility] [address] OFFICE BUILDING ONE 2021-04-22 2021-04-22 Surgery Lino Araujo 1.2.840.114 [id number] Univers 07:15:00 15:19:00 CARLITOS 350.1.13.10 it y of [facility] 4.2.7.2.686 [place] [id number] [facility] [address] 2021-04-11 2021-04-11 Rn Office Therapist, [facility] Respiratory [facility] 1.2.840.114 [id number] Univers 12:30:00 14:00:00 Visit Freddie Hargrove 350.1.13. 10 ity of [place] 4.2.7.2.686 [place] [facility] [phone] [facility] [address] 2021-04-11 2021-04-11 Outpatient R CARRIE [place] [id number] Univers 12:30:00 12:30:00 FREDDIE barnes of [facility] 2021-04-11 2021-04-11 Orders Doctor ANDREA 1.2.840.114 [id number] Univers 00:00:00 00:00:00 Only Unassigned, CARLITOS 350.1.13.10 ity of [place] [facility] 4.2.7.2.686 [place] [phone] [address] 2021-04-10 2021-04-10 [facility] 1.2.840.114 [id number] Univers 00:00:00 00:00:00 [facility] 350.1.13.10 it y of [facility] 4.2.7.2.686 [place] JOHANN?BLEA [phone] In vitaly KNEY 044 [facility] OFFICE [facility] 2021-04-08 2021-04-08 Outpatient R BENNY DING [place] [id number] Univers 09:15:00 09:15:00 BENNY DING i ty of [facility] 2021-03-28 2021-03-28 Telephone Deangelo [facility] 1.2.326.528 [id number] Univers 00:00:00 00:00:00 Benny SAMS 350.1.13.10 i ty [facility] 4.2.7.2.[place] [id number] In dicisidra [facility] 085 [facility] 2021-03-27 2021-03-27 Telephone Deangelo [facility] [id number] Univers 00:00:00 00:00:00 Benny SAMS 350.1.13.[address] [facility] 4[place] [id number] [facility] 085 [facility] 2021-03-21 2021-03-21 Rn Office 2, Adc Lab [facility] 1.2.840.114 [id number] Univers 16:00:00 16:05:00 Visit Benny Ding 350.1.13.[address] [facility] 4[place] [id number] [facility] 353 [facility] 2021-03-21 2021-03-21 Office Deangelo [facility] 1.2.840.114 [id number] Univers 15:30:00 16:03:35 Visit Benny SAMS 350.1.13.10 i [address] [facility] [id number] [phone] In dicla [facility] 085 [facility] 2021-03-21 2021-03-21 Outpatient R ELVIA DINGKODI [place] 10 [id number] Univers 16:00:00 16:00:00 DING BENNY plata ty of [facility] 2021-03-21 2021-03-21 Outpatient R ELVIA DINGKODI [place] 10 [id number] Univers 16:00:00 16:00:00 DING BENNY plata ty [facility] 2021-03-18 2021-03-18 [facility] [id number] Univers 11:56:04 23:59:00 LAURYN ity of [facility] 2021-03-18 2021-03-18 [facility] 1.2.840.114 [id number] Univers 11:56:04 23:59:00 Encounter Lauryn HEALTH [id number] ity of [place] 4.2.7.2.686 Dwain as JOHANN?BLEA [phone] [facility] 809 [facility] OFFICE [facility] 2021-03-18 2021-03-18 Office [facility] 1.2.840.114 [id number] Univers 11:30:00 11:57:02 Visit Lauryn HEALTH [id number] it y of [place] 4.2.7.2.686 Dwain as JOHANN?BLEA [phone] [facility] 044 [facility] OFFICE [facility] 2021-03-18 2021-03-18 [facility] [id number] Univers 11:56:04 11:56:04 LAURYN ity of [facility] 2021-03-13 2021-03-13 [facility] 1.2.840.114 [id number] Univers 00:00:00 00:00:00 Elaine SAMS 350.1.13.10 ity [facility] [place] [phone] [facility] 059 [facility] 2021-03-01 2021-03-01 [facility] [id number] Univers 11:00:00 11:22:42 LAURYN ity [facility] 2021-03-01 2021-03-01 [facility] 1.2.840.114 [id number] Univers 11:00:00 11:22:42 Visit Lauryn [facility] 350.1.13.10 it y [facility] [id number] Dwain as JOHANN?BLEA [phone] In vitaly [facility] [place]ES [address] MEDICAL OFFICE [facility] 2021-03-01 2021-03-01 [facility] [id number] Univers 11:00:00 11:00:00 LAURYN ity of [facility] 2021-02-26 2021-02-26 Transition JOSÉ MIGUEL Fox [id number] Univers 00:00:00 00:00:00 of Care Natasha MCKINNEY [id number] i ty of [id number] [id number] [facility] [address] 2021-02-23 2021-02-25 Outpatient X RAMYRAQUELHENRY [facility]D [facility] [id number] Univers 19:18:00 16:55:00 KATHYLI ity of [facility] 2021-02-23 2021-02-25 Emergency Essence Whitlock [facility] 1.2.840 .114 [id number] Univers 19:18:00 16:55:00 [facility] [id number] [facility] [id number] [id number] [facility] [address] 2021-02-25 2021-02-25 Outpatient R CODEY ALVAREZ [place] [id number] Univers 15:00:00 15:00:00 CODEY ALVAREZ i ty of [facility] 2021-02-18 2021-02-18 Kaleb Graham [facility] 1.2.840.114 [id number] Univers 00:00:00 00:00:00 Radha HEALTH [id number] it y of [place] [id number] Dwain as JOHANN?BLEA [phone] [facility] [address] MEDICAL OFFICE [facility] 2021-02-11 2021-02-11 Telephone [facility] [id number] 2015 [facility] 00:00:00 00:00:00 Lauryn HEALTH [id number] it y of [place] [id number] Dwain as JOHANN?BLEA [id number] [address] MEDICAL OFFICE [facility] 2021-02-06 2021-02-06 Telephone [facility] [id number] Univers 00:00:00 00:00:00 Lauryn HEALTH [id number] it y of [place] [id number] Dwain as JOHANN?BLEA [id number] [address] OFFICE [facility] 2021-02-05 2021-02-05 Rn Office Lab, Ang - Db [facility] [id number] Univers 10:57:40 11:12:40 Visit Lauryn Goldsmith HEALTH 350.1.13.10 ity of [place] 4.2.7.2.686 Dwain as JOHANN?BLEA [id number] [address] OFFICE [facility] 2021-02-05 2021-02-05 Outpatient R AGUS [place] [id number] Univers 11:00:00 11:00:00 LAURYN barnes [facility] 2021-02-05 2021-02-05 Office [facility] [id number] Univers 10:15:22 10:59:06 Visit Lauryn MARIA [id number] it y of [place] [id number] Dwain as JOHANN?BLEA [id number] [address] MEDICAL OFFICE [facility] 2021-02-05 2021-02-05 Outpatient R AGUS [place] [id number] Univers 10:30:00 10:30:00 LAURYN barnes [facility] 2021-02-05 2021-02-05 Telephone [facility] [id number] Univers 00:00:00 00:00:00 Lauryn HEALTH [id number] it y of [place] 4.2.7.2.686 Dwain as JOHANN?BLEA [id number] In vitaly [place] [address] MEDICAL OFFICE [facility] 2021-02-01 2021-02-01 Hospital [facility] 1.2.840.114 [id number] Univers 09:51:21 23:59:00 Encounter [facility] [id number] ity of [place] [id number] Dwain as JOHANN?BLEA [id number] In vitaly [place] [address] MEDICAL OFFICE [facility] 2021-02-01 2021-02-01 Outpatient R [facility] [id number] Univers 09:20:00 10:40:55 [facility] 2021-02-01 2021-02-01 Urgent [facility] 1.2.840.114 [id number] Univers 09:09:39 10:40:55 Care [facility] [id number] it y of [place] [id number] Dwain as JOHANN?BLEA [id number] [facility] 370 [facility] OFFICE [facility] 2021-01-24 2021-01-24 Outpatient R NORMANJEROMEZia [place] [id number] Univers 09:40:00 09:40:00 LORAINE [facility] 2021-01-24 2021-01-24 Urgent Loraine Sandoval [facility] 1.2.840.114 [id number] Univers 09:19:42 09:39:42 Care [facility] [id number] ity of [place] [id number] Dwain as JOHANN?BLEA [id number] [facility] [address] MEDICAL OFFICE [facility] 2021-01-21 2021-01-21 Outpatient R WILD [place] [id number] Univers 11:00:00 11:00:00 ARIELLA adammike [facility] 2021-01-15 2021-01-15 Emergency [facility] ERT [id number] Univers 09:13:00 12:38:00 [facility] 2021-01-15 2021-01-15 Emergency [facility] [id number] Univers 09:13:00 12:38:00 Shazia [facility] [id number] i ty of [place].2.[place] [id number] [address] 2021-01-06 2021-01-06 Telephone [facility] 1.2.840.114 [id number] Univers 00:00:00 00:00:00 [facility] [id number] it y of [place] [id number] Dwain as Johann?Blea [phone] [address] Medical Office [facility] 2021-01-04 2021-01-04 [facility] [id number] Univers 14:34:30 23:59:00 Encounter [facility] [id number] ity of [place] [id number] [place]ain as Johann?Blea [phone] [facility] [address] Medical Office [facility] 2021-01-04 2021-01-04 [facility] 1.2.840.114 [id number] Univers 14:14:32 15:05:04 Care [facility] [id number] it y of [place] [id number] Dwain as Johann?Blea [id number] [address] Medical Office [facility] 2021-01-04 2021-01-04 Outpatient R JANENE [place] [id number] Univers 14:20:00 14:20:00 LORAINE itmike [facility] 2020-11-06 2020-11-06 Outpatient R MAYLIN [place] [id number] Univers 14:20:00 14:20:00 ASHWIN barnes [facility] 2020-11-06 2020-11-06 Office DOMENICO Whatley 1.2.840.114 [id number] Univers 13:59:03 14:19:03 Visit Ashwin Y [facility] 350.1.13.10 i ty of [facility] 4.2.7.2.[place] [id number] [facility] [address] 2020-11-06 2020-11-06 Orders Doctor ANDREA 1.2.840.114 [id number] Univers 00:00:00 00:00:00 Only Unassigned, CARLITOS 350.1.13.10 ity of [place] [facility] 4.2.7.2.686 Dwain as [id number] [address] 2020-10-15 2020-10-15 [facility] [id number] Univers 15:15:00 15:15:00 [facility] 2020-10-01 2020-10-01 Outpatient R GERMAINE [place] [id number] Univers 00:00:00 00:00:00 MIK hernandez [facility] 2020-09-04 2020-09-04 [facility] [id number] Univers 08:00:00 08:00:00 MIK hernandez [facility] 2020-08-02 2020-08-02 Outpatient R [place] [id number] Univers 09:15:00 09:15:00 [facility] 2020-07-23 2020-07-23 Outpatient R JUD [place] [id number] Univers 09:50:00 09:50:00 KEVIN [facility] 2020-07-17 2020-07-17 [facility] [id number] Univers 09:00:00 09:00:00 SENDIL [facility] 2020-07-05 2020-07-05 Outpatient R LEEROY [place] [id number] Univers 10:00:00 10:00:00 SENDIL [facility] 2020-07-03 2020-07-03 [facility] [id number] Univers 09:50:00 09:50:00 KEVIN [facility] 2020-06-12 2020-06-12 Outpatient R WILD [place] [id number] Univers 10:30:00 10:30:00 ARIELLA [facility] 2020-05-23 2020-05-23 Out[facility] [id number] Univers 13:00:00 13:00:00 SENDIL [facility] 2020-05-22 2020-05-22 Outpatient R GERMAINE, [place] [id number] Univers 11:30:00 11:30:00 MIK hernandez [facility] 2019-04-22 2019-04-22 Outpatient R KE, [place] [id number] Univers 10:40:00 11:13:35 JUAN ALBERTO [facility] Results Test Description Test Time Test Comments [...]
[2022-04-25] MEDS ORDERED: ACETAMINOPHEN 325 MG TABLET ONE (08:36)
--- NOTE | 2022-04-25 08:39 | RAD REPORT ---
EXAM DESCRIPTION: CT - Head Brain Wo Cont - 04/25/2022 8:33 am CLINICAL HISTORY: Headache COMPARISON: April 22, 2022 TECHNIQUE: Computed axial tomography of the head was obtained. IV contrast was not requested. All CT scans are performed using dose optimization technique as appropriate and may include automated exposure control or mA/KV adjustment according to patient size. FINDINGS: An intracranial bleed is not seen The ventricles are normal in caliber No significant hypodense areas within the brain visualized No extra-axial fluid collection is noted. Fluid within the sinuses/ mastoids is not seen IMPRESSION: No acute intracranial abnormality is seen If patient's symptoms persist MRI of the brain would be recommended
[2022-04-25 08:40] LABS: Absolute Lymphocytes (CBC) 2.1 K/uL (0.7-4.9); Hematocrit 46.7 % (39.6-49.0); Lymphocytes % 21.6 % (15.3-44.8); MCV 87.7 fL (80-100); RBC Red Blood Cell Count 5.33 M/uL (4.33-5.43)
[2022-04-25 08:58] LABS: Potassium 3.8 mmol/L (3.5-5.1); Troponin High Sensitivity 11.3 pg/mL (<58.9)
--- NOTE | 2022-04-25 09:29 | RAD REPORT ---
EXAM DESCRIPTION: Virgil Single View04/25/2022 9:23 am CLINICAL HISTORY: Shortness of breath COMPARISON: none FINDINGS: The lungs appear clear of acute infiltrate. The heart is normal size Postsurgical changes involve the chest IMPRESSION: No acute abnormalities displayed
--- NOTE | 2022-04-25 10:29 | EDPHYS ---
Physician Documentation [facility] Name: Patrick Andrews Age: 71 yrs Sex: Male : 1950 Arrival Date: 04/25/2022 Time: 08:00 Bed 8 Private MD: ED Physician Reece Ramos HPI: 04/25 08:18 This 71 yrs old Male presents to ER via Ambulatory with complaints of High Blood aj3 Pressure. 08:18 Onset: The symptoms/episode began/occurred this morning. Modifying factors: The aj3 symptoms are alleviated by prescription meds. Associated signs and symptoms: Pertinent positives: dyspnea, headache, Pertinent negatives: chest pain, dizziness, lightheadedness, nausea, visual changes, vomiting, weakness. Severity of symptoms: At its worst the blood pressure was 225 mm Hg. The patient has experienced a previous episode, approximately 3 days ago. Historical: - Allergies: 08:16 No Known Allergies; iw - PMHx: 08:11 GERD; Hypertensive disorder; Diverticulitis; neuropathy; ll1 - PSHx: 08:11 back surgery; open heart surgery; ll1 - Immunization history:: Adult Immunizations up to date. - Social history:: Smoking status: Patient/guardian denies using tobacco, but has a distant history of tobacco abuse. ROS: 08:18 Constitutional: Negative for fever, chills, and weight loss, Eyes: Negative for injury, aj3 pain, redness, and discharge, Neck: Negative for injury, pain, and swelling, Cardiovascular: Negative for chest pain, palpitations, and edema, Abdomen/GI: Negative for abdominal pain, nausea, vomiting, diarrhea, and constipation, Back: Negative for injury and pain, MS/Extremity: Negative for injury and deformity, Skin: Negative for injury, rash, and discoloration. 08:18 Respiratory: Positive for shortness of breath. 08:18 Neuro: Positive for headache, Negative for altered mental status, dizziness, gait disturbance, loss of consciousness, numbness, speech changes, syncope, visual changes, weakness. Exam: 08:18 Constitutional: This is a well developed, well nourished patient who is awake, alert, aj3 and in no acute distress. Head/Face: Normocephalic, atraumatic. Eyes: Pupils equal round and reactive to light, extra-ocular motions intact. Lids and lashes normal. Conjunctiva and sclera are non-icteric and not injected. Cornea within normal limits. Periorbital areas with no swelling, redness, or edema. Neck: Trachea midline and no cervical lymphadenopathy. Supple, full range of motion without nuchal rigidity. Cardiovascular: Regular rate and rhythm with a normal S1 and S2. No gallops, murmurs, or rubs. Normal PMI, no JVD. No pulse deficits. Respiratory: Lungs have equal breath sounds bilaterally, clear to auscultation and percussion. No rales, rhonchi or wheezes noted. No increased work of breathing, no retractions or nasal flaring. Skin: Warm, dry with normal turgor. Normal color with no rashes, no lesions, and no evidence of cellulitis. MS/ Extremity: Pulses equal, no cyanosis. Neurovascular intact. Full, normal range of motion. Neuro: Awake and alert, GCS 15, oriented to person, place, time, and situation. Cranial nerves II-XII grossly intact. Motor strength 5/5 in all extremities. Sensory grossly intact. Cerebellar exam normal. Normal gait. 08:23 ECG was reviewed by the Attending Physician. aj3 Vital Signs: 08:16 BP 176 / 86; Pulse 74; Resp 16; Pulse Ox 97% on R/A; Weight 76.2 kg; Height 5 ft. 2 in. iw (157.48 cm); Pain 0/10; 09:33 BP 158 / 71; Pulse 67; Pulse Ox 97% ; ll1 08:16 Body Mass Index 30.73 (76.20 kg, 157.48 cm) NIH Stroke Scale Scores: 08:18 NIHSS Score: 0 aj3 MDM: 08:09 Patient medically screened. aj3 08:18 Data interpreted: monitoring and evaluation advisor: Rate 72 NSR on monitor. aj3 10:16 Differential diagnosis: hypertensive crisis, CVA, intracerebral hemorrhage, ACS, ROSAURA. aj3 10:30 Data reviewed: vital signs, nurses notes, EKG, radiologic studies, CT scan, plain aj3 films. Independent interpretation of the following test(s) in the Emergency Department EKG: See my EKG interpretation above X-Ray: My interpretation is chest is clear. CT Scan: My interpretation is no head bleed noted.. monitoring and evaluation advisor: Heart rate 72, normal sinus rhythm on monitor. 10:43 Consideration of Admission/Observation Admission was considered for hypertensive aj3 emergency but labs and imaging were reassuring today. Patient's blood pressure decreased on its own without any interventions.. Historians other than the Patient: Spouse/Significant Other: . Care significantly affected by the following chronic conditions: Hypertension, CAD. Care significantly affected by the following Social Determinants of Health: Patient with heel splitter close to home and ports difficulty getting in touch with his heel splitter in [place]. Counseling: I had a detailed discussion with the patient and/or guardian regarding: the historical points, exam findings, and any diagnostic results supporting the discharge/admit diagnosis, the presence of at least one elevated blood pressure reading (>120/80) during this emergency department visit, lab results, radiology results, the need for outpatient follow up, Lithostripper and PCP, to return to the emergency department if symptoms worsen or persist or if there are any questions or concerns that arise at home. 04/25 08:18 Order name: Basic Metabolic Panel; Complete Time: 09:08 04/25 08:18 Order name: CBC with Diff; Complete Time: 08:57 04/25 08:18 Order name: Troponin HS; Complete Time: 09:08 04/25 08:18 Order name: XRAY Chest (1 view); Complete Time: 09:39 04/25 08:23 Order name: CT Head Brain wo Cont; Complete Time: 08:57 04/25 08:18 Order name: EKG; Complete Time: 08:19 04/25 08:18 Order name: Cardiac monitoring; Complete Time: 08:19 04/25 08:18 Order name: EKG - Nurse/Tech; Complete Time: 08:04/25 08:18 Order name: IV Saline Lock; Complete Time: 08:28 04/25 08:18 Order name: Labs collected and sent; Complete Time: 08:28 04/25 08:18 Order name: O2 Per Protocol; Complete Time: 08:04/25 08:18 Order name: O2 Sat Monitoring; Complete Time: 08:19 EC:19 Rate is 70 beats/min. Rhythm is regular. QRS [place] is Normal. CO interval is normal. QRS aj3 interval is normal. QT interval is normal. T waves are Normal. No ST changes noted. Clinical impression: Normal ECG. Administered Medications: 08:45 Not Given (Patient Refused): Tylenol 650 mg PO once ll1 Disposition: 13:12 Co-signature as Attending Physician, Reece Ramos MD I reviewed the patient's care rt provided by the Advanced Practice Provider and agree with the diagnosis and treatment plan. Disposition Summary: 04/25/22 10:29 Discharge Ordered Location: Home aj3 Problem: chronic aj3 Symptoms: have improved aj3 Condition: Stable aj3 Diagnosis - Essential (primary) hypertension aj3 Followup: aj3 - With: Jose Elias Serna MD - When: 1 week - Reason: Recheck today's complaints Followup: aj3 - With: Cosmo Cochran MD - When: 1 week - Reason: Recheck today's complaints Discharge Instructions: - Discharge Summary Sheet aj3 - Managing Your Hypertension aj3 Forms: - Medication Reconciliation Form aj3 - Thank You Letter aj3 - Antibiotic Education aj3 - Prescription Opioid Use aj3 NIH Stroke Scale - NIH Stroke Score Date: 04/25/2022 Time: 08:18 Total Score = 0 1a. Level of Consciousness (LOC) - 0(Alert) 1b. Level of Consciousness (LOC) (Month \T\ Age) - 0(Both) 1c. LOC Commands (Open \T\ Closes Eyes/Press Operator Automatic) - 0(Both) 2. Best Gaze (Lateral Gaze Paresis) - 0(Normal) 3. Visual Field Loss - 0(No visual loss) 4. Facial Palsy - 0(Normal) 5a. Left Arm: Motor (10-second hold) - 0(No drift) 5b. Right Arm: Motor (10-second hold) - 0(No drift) 6a. Left Leg: Motor (5-second hold - always test supine) - 0(No drift) 6b. Right Leg: Motor (5-second hold - always test supine) - 0(No drift) 7. Limb Ataxia (finger/nose \T\ heel/gallardo - test with eyes open) - 0(Absent) 8. Sensory Loss (pinprick arms/legs/face) - 0(Normal) 9. Best Language: Aphasia (description/naming/reading) - 0(No aphasia) 10. Dysarthria (speech clarity - read or repeat words) - 0(Normal) 11. Extinction and Inattention (visual/tactile/auditory/spatial/personal) - 0(No abnormality) Initials: aj3 Signatures: Dispatcher [employer] Ashwin Ramirez PA PA jmm Williams, Irene, RN RN iw Essie Olivares RN RN ll1 Gwendolyn Razo, RAMP SUPERVISOR RAMP SUPERVISOR aj3 Reece Ramos MD MD rt Corrections: (The following items were deleted from the chart) 08:51 08:23 Rate is 70 beats/min. Rhythm is regular. QRS [place] is Normal. CO interval aj3 is normal. QRS interval is normal. QT interval is normal. T waves are Normal. No ST changes noted. Clinical impression: Normal ECG. aj3
--- NOTE | 2022-04-25 10:29 | ER ---
Nurse's Notes [facility] Name: Patrick Andrews Age: 71 yrs Sex: Male : 1950 Arrival Date: 04/25/2022 Time: 08:00 Bed 8 Private MD: Diagnosis: Essential (primary) hypertension Presentation: 04/25 08:14 Chief complaint: Patient states: BP was running high at home , was seen here Thursday iw and prescribed Norvasc, BP was 225/110 at home. Coronavirus screen: At this time, the client does not indicate any symptoms associated with coronavirus-19. Ebola Screen: Patient negative for fever greater than or equal to 101.5 degrees Fahrenheit, and additional compatible Ebola Virus Disease symptoms Patient denies exposure to infectious person. Patient denies travel to an Ebola-affected area in the 21 days before illness onset. No symptoms or risks identified at this time. Initial Sepsis Screen: Does the patient meet any 2 criteria? No. Patient's initial sepsis screen is negative. Does the patient have a suspected source of infection? No. Patient's initial sepsis screen is negative. Risk Assessment: Do you want to hurt yourself or someone else? Patient reports no desire to harm self or others. Onset of symptoms was April 25, 2022. 08:14 Method Of Arrival: Ambulatory iw 08:14 Acuity: DANIEL 3 iw Historical: - Allergies: 08:16 No Known Allergies; iw - PMHx: 08:11 GERD; Hypertensive disorder; Diverticulitis; neuropathy; ll1 - PSHx: 08:11 back surgery; open heart surgery; ll1 - Immunization history:: Adult Immunizations up to date. - Social history:: Smoking status: Patient/guardian denies using tobacco, but has a distant history of tobacco abuse. Screenin:49 [facility] ED Fall Risk Assessment (Adult) Score/Fall Risk Level 0 - 2 = Low Risk ll1 Oriented to surroundings, Maintained a safe environment, Educated pt \T\ family on fall prevention, incl call for assistance when getting out of bed, Hourly rounding (assess needs \T\ fall precautionary measures) done. Abuse screen: Denies threats or abuse. Nutritional screening: No deficits noted. Tuberculosis screening: No symptoms or risk factors identified. Assessment: 08:28 General: Appears uncomfortable, Behavior is calm, cooperative, appropriate for age. ll1 Pain: Complains of pain in neck Quality of pain is described as aching. Neuro: Reports high BP. Cardiovascular: Reports high BP. Musculoskeletal: Reports pain in neck. 09:33 Reassessment: No changes from previously documented assessment. Patient and/or family ll1 updated on plan of care and expected duration. Pain level reassessed. Patient is alert, oriented x 3, equal unlabored respirations, skin warm/dry/pink. 10:40 Reassessment: No changes from previously documented assessment. Patient and/or family ll1 updated on plan of care and expected duration. Pain level reassessed. Patient is alert, oriented x 3, equal unlabored respirations, skin warm/dry/pink. Vital Signs: 08:16 BP 176 / 86; Pulse 74; Resp 16; Pulse Ox 97% on R/A; Weight 76.2 kg; Height 5 ft. 2 in. iw (157.48 cm); Pain 0/10; 09:33 BP 158 / 71; Pulse 67; Pulse Ox 97% ; ll1 08:16 Body Mass Index 30.73 (76.20 kg, 157.48 cm) iw NIH Stroke Scale Scores: 08:18 NIHSS Score: 0 aj3 ED Course: 08:00 Patient arrived in ED. rg4 08:05 Gwendolyn Razo, RENEE is PHCP. aj3 08:05 Reece Ramos MD is Attending Physician. aj3 08:10 Essie Olivares, YELENA is Primary Nurse. ll1 08:10 Arm band placed on Patient placed in an exam room, on a stretcher. ll1 08:16 Triage completed. iw 08:28 Inserted saline lock: 22 gauge in right forearm, using aseptic technique. Blood ll1 collected. 08:33 CT Head Brain wo Cont In Process Unspecified. EDMS 09:25 XRAY Chest (1 view) In Process Unspecified. EDMS 10:27 Jose Elias Serna MD is Referral Physician. aj3 10:28 Cosmo Cochran MD is Referral Physician. aj3 10:41 Patient has correct armband on for positive identification. Placed in gown. Bed in low ll1 position. Client placed on continuous cardiac and pulse oximetry monitoring. NIBP monitoring applied. monitor technician on. 10:41 No provider procedures requiring assistance completed. IV discontinued, intact, ll1 bleeding controlled, No redness/swelling at site. Pressure dressing applied. Administered Medications: 08:45 Not Given (Patient Refused): Tylenol 650 mg PO once ll1 Medication: 10:49 VIS not applicable for this client. ll1 Outcome: 10:29 Discharge ordered by . aj3 10:41 Patient left the ED. ll1 10:41 Discharged to home ambulatory. ll1 10:41 Condition: stable 10:41 Discharge instructions given to patient, family, Instructed on discharge instructions, follow up and referral plans. Demonstrated understanding of instructions, follow-up care. NIH Stroke Scale - NIH Stroke Score Date: 04/25/2022 Time: 08:18 Total Score = 0 1a. Level of Consciousness (LOC) - 0(Alert) 1b. Level of Consciousness (LOC) (Month \T\ Age) - 0(Both) 1c. LOC Commands (Open \T\ Closes Eyes/Hide And Skin Processing Worker) - 0(Both) 2. Best Gaze (Lateral Gaze Paresis) - 0(Normal) 3. Visual Field Loss - 0(No visual loss) 4. Facial Palsy - 0(Normal) 5a. Left Arm: Motor (10-second hold) - 0(No drift) 5b. Right Arm: Motor (10-second hold) - 0(No drift) 6a. Left Leg: Motor (5-second hold - always test supine) - 0(No drift) 6b. Right Leg: Motor (5-second hold - always test supine) - 0(No drift) 7. Limb Ataxia (finger/nose \T\ heel/gallardo - test with eyes open) - 0(Absent) 8. Sensory Loss (pinprick arms/legs/face) - 0(Normal) 9. Best Language: Aphasia (description/naming/reading) - 0(No aphasia) 10. Dysarthria (speech clarity - read or repeat words) - 0(Normal) 11. Extinction and Inattention (visual/tactile/auditory/spatial/personal) - 0(No abnormality) Initials: aj3 Signatures: Dispatcher [employer] EDKeisha Montalvo, RN Tammie Pimentel rg4 Essie Olivares RN RN ll1 Gwendolyn Rzao, SPECIAL EDUCATION TEACHER SPECIAL EDUCATION TEACHER aj3 Corrections: (The following items were deleted from the chart) 08:20 08:16 BP 176 / 86; Pulse 74bpm; Resp 16bpm; Pulse Ox 97% RA; iw iw 08:22 08:16 BP 176 / 86; Pulse 74bpm; Resp 16bpm; Pulse Ox 97% RA; 76.2 kg; Height 5 iw ft. 2 in.; BMI: 30.7; Pain 0/10; iw
[2022-04-25 11:06] VITALS: O2SAT 97
[2022-04-25 11:07] VITALS: BP 158/71
== END 2022-04-25 10:41 | disposition home or self-care (01) ==
LOC: ER 07:58
DX: I10 Essential (primary) hypertension (principal)
CPT/HCPCS: 36415; 70450; 71045; 80048; 84484; 85025; 93005; 99284